=== PATIENT | female | born 1975 | race Caucasian/White ===

== ENCOUNTER → 2018-06-27 11:16 | Outpatient (CLI) | payer BC, SELFPAY ==
[2018-06-27 12:44] LABS: ALB/GLOB Ratio 0.9 RATIO (0.9-2.4); AST(SGOT) 18 U/L (15-37); Alanine Aminotransfer ALT/SGPT 23 U/L (13-56); Albumin, Serum 3.5 g/dL (3.2-5.0); Alkaline Phosphatase 55 U/L (45-117); Anion Gap 11 (5-15); BUN 18 mg/dL (7-18); BUN/Creat Ratio 23.8 RATIO (10-20); Calcium,Total 9.3 mg/dL (8.5-10.1); Chloride 105 mmol/L (98-107); Cholesterol 203 mg/dL (200); Creatinine, Serum 0.76 mg/dL (0.55-1.02); EST Glomerular Filtration Rate 89 mL/min (>60); Est Glom Filt Rate - Afr Amer 108 mL/min (>60); Globulin 3.9 g/dL (2.2-4.2); Glucose 71 mg/dL (74-106); High Density Lipoprotein 70 mg/dL; Protein, Total 7.4 g/dL (6.4-8.2); Sodium Level 141 mmol/L (136-145); Thyroid Stim Hormone (TSH) 1.53 uIU/mL (0.358-3.74); Triglycerides 131 mg/dL; Very Low Density Lipoprotein 26 mg/dL (5-40)
== END ==
PROVIDERS: Family Provider Family Medicine; PCP Family Medicine; Visit Provider Family Medicine
DX: E78.5 Hyperlipidemia, unspecified (principal); F41.9 Anxiety disorder, unspecified
CPT/HCPCS: 36415; 80053; 80061; 83735; 84443

== ENCOUNTER → 2018-10-09 13:16 | Outpatient (CLI) | payer BC, SELFPAY ==
--- NOTE | 2018-10-09 13:22 | RAD_ITS ---
STUDY: X-RAY - RIGHT WRIST REASON FOR EXAM: Chronic pain. TECHNIQUE: 3 view(s) of the wrist were obtained. COMPARISON: None. FINDINGS: Normal visualized distal radius and ulna. Normal radiocarpal articulation. Normal distal radioulnar articulation. Normal carpal bones. Normal carpal articulations. Normal carpometacarpal articulation of the thumb. Normal second through fifth carpometacarpal articulations. Normal visualized metacarpal bones. The soft tissue structures are unremarkable. RAD/Wrist min 3 Views IMPRESSION: Normal x-ray examination of the right wrist. Electronically Signed: Jesu Hummel MD at 15:46 EST Tel , Service support ,
== END ==
PROVIDERS: Family Provider Family Medicine; PCP Family Medicine; Referring Provider Orthopaedic Surgery; Visit Provider Orthopaedic Surgery
DX: M25.531 Pain in right wrist (principal)
CPT/HCPCS: 73110

== ENCOUNTER 2018-11-28 12:30 | Outpatient (RCR) | payer BC, SELFPAY ==
--- NOTE | 2018-10-14 15:35 | HP.OTEVAL_ITS ---
Patient's Visit Information DIPAK DOSS is a 43 year old F, referred to Occupational Therapy by Yumiko Kenny DO, with a diagnosis of ECU Tendonitis and snapping. Date of Evaluation: 10/14/18 Occupational Therapist: Twila Moy - Subjective Subjective: Arrived and noted that she started noticing clicking and snapping in wrist around end of September. Dipak is referral from [facility]. She already has splint as per recommendation by Dr. Kenny. No MRI but x-rays completed in poffice with [facility]. Pt. noted she is R hand dominant and works [employer] and [employer] owned [employer] - Pain Right Wrist 0 Pain Intensity Range: 0, 6 - Objective Concerns: Iontophoresis will likley not be covered by insurance but looking into it to double check. Will determine completion of iontophoresis if Pt. is willing to complete out of pocket pay and it is appropriate with medication allergies. Will focus on icing and US to decrease imflammation during the meantime. - ROM Wrist: Flexion R 0-76, L 0-76; Extension R 0-44, L 0-70 MP: WFL PIP: WFL DIP: WFL ROM Comments: Radial Deviation: R 0-11, L 0-19. Ulnar Deviation: R 0-28, L 0- 22. As expected, increased pain with ulnar deviation. 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 is R hand dominant. - Sensation Thumb: R 3.22, L 2.83 Index: R 3.22 , L 2.83 Middle: R 3.22 , L 2.83 Ring: R 2.83, L 2.83 Little: R 2.83, L 2.83 Sensation Comments: Notes previous had some CTS like symptoms years ago but it has never been issue. She did note that at times and often at night she will exterience numbness and tingling in thumb, IF and MF. 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 Goal:: Dipak to not have more than 1/10 pain during repeitive tasks with good wrist mechanics 100% of the time to help decrease additional pain by d/c. Goal:: Dipak to be (I) to complete good lifiting and wrist mechanics to help decrease poor body mechanics to increased pain and further risk of additional injury 100% of the time by d/c. Goal:: Dipak - Rehabilitation General Assessment: Dipak arrived for OT evaluation 10/14/18. Decreased strength, wrist mechanics, and increase dpain with movements noted of R dominant wrist when compared to L wrist. She will benefit from OT services to promote radial strength program to help decrease ulnar deviation, modalities as needed to manage pain, splint as needed to decrease pain, and general body and wrist mechanics to promote increased alignment and decreased pain during work-related and ADL tasks. Rehabilitation Potential: Good - Anticipated Interventions Anticipated Interventions: A/AAROM/PROM, Strengthening, Edema Control, Scar Care, Modalities, Orthoses, Joint Protection/Energy Conservation, Ergonomic Education, Fine Motor Coord/[place], ADL Training, Caregiver Training, Home Program - Visit Plan Frequency: 2x /Week Duration: 4 Weeks General Plan: OT to completed light PRE strengthening program topromote radial stability to decrease pain over ECU to help decrease symptoms and movements to aggrevate tendonitis, ROM, pain management with US and iontophoresis to help decrease pain, and general wrista nd body mechanics to help decrease pain during work and daily tasks. TEXT: Thank you for the opportunity to evaluate your patient. For Medicare and Medicare HMO plans, please review the plan of care and approve it. It will need to be FAXED BACK to us at [phone] for Medicare purposes. Please let me know if there are questions or concerns regarding this plan of care. Physician Signature: Date:
--- NOTE | 2018-10-17 13:08 | HP.OTEVAL_ITS ---
Patient's Visit Information DIPAK DOSS is a 43 year old F, referred to Occupational Therapy by Yumiko Kenny DO, with a diagnosis of ECU Tendonitis and snapping. Date of Evaluation: 10/14/18 Occupational Therapist: Twila Moy - Subjective Subjective: Arrived and noted that she started noticing clicking and snapping in wrist around end of September. Dipak is referral from [facility]. She already has splint as per recommendation by Dr. eKnny. No MRI but x-rays completed in office with [facility]. Pt. noted she is R hand dominant and works [employer], in [facility] [place]. She explained she is required to lift 20-45 lbs on a regular basis. - Pain Right Wrist 0 Pain Intensity Range: 0, 6 - Objective Concerns: Iontophoresis will not be covered by insurance. Will determine completion of iontophoresis if Pt. is willing to complete out of pocket pay. She has been cleared by pharmacy to use dexamethasone with medication related allergies. Alternative would be to use phonophoresis. This would also require a prescription. Will focus on icing and US to decrease inflammation during the meantime. - ROM Wrist: Flexion R 0-76, L 0-76; Extension R 0-44, L 0-70 MP: WFL PIP: WFL DIP: WFL ROM Comments: Radial Deviation: R 0-11, L 0-19. Ulnar Deviation: R 0-28, L 0- 22. Increased pain with ulnar deviation when tendon compressed. 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 is R hand dominant. - Sensation Thumb: R 3.22, L 2.83 Index: R 3.22 , L 2.83 Middle: R 3.22 , L 2.83 Ring: R 2.83, L 2.83 Little: R 2.83, L 2.83 Sensation Comments: Notes previous had some CTS like symptoms years ago but it has never been issue. She did note that at times and often at night she will experience numbness and tingling in thumb, IF and MF. 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 Goal:: Dipak to not have more than 1/10 pain during repetitive tasks with good wrist mechanics 100% of the time to help decrease additional pain by d/c. Goal:: Dipak to be (I) to complete good lifting and wrist mechanics to help decrease risk of further injury or additional pain 100% of the time by d/c. Goal:: Dipak to return to completing all ADl/IADL with 1/10 pain for repetitive hand and wrist movements 4/5 trials 80% of the time by d/c. Goal:: Dipak to be (I) to complete HEP to promote stability of wrist and pain manage to promote increased (I) and ability to return back to PLOF by d/c. - Rehabilitation General Assessment: Dipak arrived for OT evaluation 10/14/18. Decreased strength, wrist mechanics, and increased pain with movements noted of R dominant wrist when compared to L wrist. She will benefit from OT services to promote radial strength program to help decrease ulnar deviation, modalities as needed to manage pain, splint as needed to decrease pain, and general body and wrist mechanics to promote increased alignment and decreased pain during work-related and ADL tasks. Rehabilitation Potential: Good - Anticipated Interventions Anticipated Interventions: A/AAROM/PROM, Strengthening, Edema Control, Scar Care, Modalities, Orthoses, Joint Protection/Energy Conservation, Ergonomic Education, Fine Motor Coord/Clif[place], ADL Training, Caregiver Training, Home Program - Visit Plan Frequency: 2x /Week Duration: 4 Weeks General Plan: OT to completed light PRE strengthening program to promote radial stability to decrease pain over ECU to minimize movements that aggravate tendonitis. Will additionally complete ROM, pain management with US and icing, and additional modalities to help decrease and manage pain. General wrist and body mechanics and ergonomic training to be completed to help decrease pain during work and daily tasks. TEXT: Thank you for the opportunity to evaluate your patient. For Medicare and Medicare HMO plans, please review the plan of care and approve it. It will need to be FAXED BACK to us at [phone] for Medicare purposes. Please let me know if there are questions or concerns regarding this plan of care. Physician Signature: Date:
--- NOTE | 2019-04-27 17:47 | HP.OT.NRP ---
HP - Discharge Summary - Patient Information DIPAK DOSS was seen in my office for initial evaluation on 10/14/18. The following Plan of Care was established for this patient: Initial Frequency: 2x /Week Initial Duration: 4 Weeks Plan: continue to wear prefab brace. PRE. - Anticipated Interventions Anticipated Interventions: A/AAROM/PROM, Strengthening, Edema Control, Scar Care, Modalities, Orthoses, Joint Protection/Energy Conservation, Ergonomic Education, Fine Motor Coord/Clif[place], ADL Training, Caregiver Training, Home Program This patient was last seen in our office 11/28/18. Pertinent comments regarding their Occupational therapy will appear below: Completed 04/11 appointments. She did not completed further follow up and will be d/c'd at this time. At this point I will be discontinuing this patient from occupational therapy. I would be happy to see this patient again in the future if found appropriate by the physician. Thank you! Twila Moy, OTR/L
== END 2018-11-28 19:00 | disposition home or self-care (01) ==
LOC: OT 12:30
PROVIDERS: Family Provider Family Medicine; PCP Family Medicine; Referring Provider Orthopaedic Surgery; Visit Provider Orthopaedic Surgery
DX: M77.8 Other enthesopathies, not elsewhere classified (principal)
CPT/HCPCS: 97035; 97110; 97166; 97530; 97760

== ENCOUNTER 2018-12-15 14:25 | Outpatient (RCR) | payer BC, SELFPAY | END 2018-12-15 23:59 | LOC: NS 14:25 | PROVIDERS: Family Provider Family Medicine; PCP Family Medicine; Visit Provider Family Medicine | DX: E66.9 Obesity, unspecified (principal); E66.3 Overweight; Z68.30 Body mass index [BMI] 30.0-30.9, adult; F41.9 Anxiety disorder, unspecified; R10.13 Epigastric pain; E78.5 Hyperlipidemia, unspecified; Z71.3 Dietary counseling and surveillance | CPT/HCPCS: 97802 ==

== ENCOUNTER → 2019-01-21 08:36 | Outpatient (CLI) | payer BC, SELFPAY ==
--- NOTE | 2019-01-21 08:41 | RAD_ITS ---
STUDY: AIR-CONTRAST UPPER GI STUDY REASON FOR EXAM: Female, 43 years old. feeling of food getting stuck in upper throat FLUOROSCOPY TIME (if supplied): (0:54) minutes/seconds 44.41 mgy 54 seconds 22 images TECHNIQUE: Barium pill swallow with sips of water is performed at the beginning of the study without difficulty. Multiple barium swallows were performed under fluoroscopic monitoring. Multiple views of the esophagus, the stomach and the duodenum were performed. COMPARISON: None. FINDINGS: The esophagus appears normal in size and shape it shows unremarkable mucosal pattern. There is no evidence of hiatal hernia or abnormal vascular compression. The stomach is normal in size shape and position the gastric mucosal folds are unremarkable. The duodenum and bulb and duodenal loop are unremarkable. The duodenal jejunal junction is in normal anatomic position to the left of the vertebral body of T12. RAD/Esophagus Only IMPRESSION: Unremarkable study. Electronically Signed: Suresh Peters, at 11:03 EDT Tel , Service support ,
== END ==
PROVIDERS: Family Provider Family Medicine; PCP Family Medicine; Referring Provider Family Medicine; Visit Provider Family Medicine
DX: R13.10 Dysphagia, unspecified (principal)
CPT/HCPCS: 74220

== ENCOUNTER → 2020-07-04 09:40 | Outpatient (CLI) | payer OTHER, SELFPAY ==
[2020-07-04 12:06] LABS: Erythrocyte Sedimentation Rate 13 mm/hr (0-20)
[2020-07-04 12:08] LABS: Absolute Lymphocyte Count 2.06 X10^3/uL (0.83-4.51); Absolute Neutrophil Count 4.5 X10^3/uL (2.0-7.7); Basophil# 0.03 X10^3/uL; Basophil% 0.4 % (0-1); Eosinophil# 0.14 X10^3/uL; Hematocrit 39.1 % (37-47); Hemoglobin 12.7 g/dL (12.0-15.0); Lymphocyte # 2.06 X10^3/ul (4.0); Lymphocyte % 28.9 % (19-41); Mean Corp Hgb Conc 32.5 g/dL (32-36); Mean Corpuscular Hgb 27.1 pg (27.0-32.0); Mean Corpuscular Volume 83.4 fL (81-99); Mean Platelet Vol. 10.7 fl (6.2-12.0); Monocyte# 0.36 X10^3/uL; NRBC Flagged by Analyzer 0 % (0-5); Neutrophil # 4.52 X10^3/uL (2.7-7.7); Neutrophil % 63.3 % (47-70); Platelet Count 404 K/mm3 (150-450); RBC Distribution Width SD 39.2 fl (35.1-43.9); Red Blood Count 4.69 M/mm3 (4.2-5.4); White Blood Count 7.1 K/mm3 (4.4-11.0)
[2020-07-04 12:18] LABS: Vitamin B12 370 pg/mL (211-911); Vitamin D,25 Hydroxy 52.1 ng/mL
[2020-07-04 12:27] LABS: ALB/GLOB Ratio 0.9 RATIO (0.9-2.4); AST(SGOT) 22 U/L (15-37); Alanine Aminotransfer ALT/SGPT 31 U/L (13-56); Albumin, Serum 3.5 g/dL (3.2-5.0); Alkaline Phosphatase 66 U/L (45-117); Anion Gap 6 (5-15); BUN 12 mg/dL (7-18); BUN/Creat Ratio 16.1 RATIO (10-20); Calcium,Total 9.1 mg/dL (8.5-10.1); Chloride 106 mmol/L (98-107); Cholesterol 192 mg/dL (200); Creatinine, Serum 0.75 mg/dL (0.55-1.02); EST Glomerular Filtration Rate 90 mL/min (>60); Est Glom Filt Rate - Afr Amer 108 mL/min (>60); Globulin 3.8 g/dL (2.2-4.2); Glucose 83 mg/dL (74-106); High Density Lipoprotein 57 mg/dL; Iron 69 ug/dL (50-170); Potassium 3.8 mmol/L (3.5-5.1); Protein, Total 7.3 g/dL (6.4-8.2); Sodium Level 137 mmol/L (136-145); Thyroid Stim Hormone (TSH) 1.28 uIU/mL (0.358-3.74); Triglycerides 173 mg/dL; Very Low Density Lipoprotein 35 mg/dL (5-40)
[2020-07-05 16:08] LABS: Endomysial Antibody IgA Negative (Negative)
[2020-07-06 04:30] LABS: Deamidated Gliadin IgA 2 units (0-19); Deamidated Gliadin IgG 3 units (0-19); Immunoglobulin A 94 mg/dL (87-352); t-Transglutaminase IgA <2 U/mL (0-3)
[2020-07-07 03:06] LABS: Beef <0.10 kU/L (Class 0); Corn <0.10 kU/L (Class 0); Egg, Whole 0.14 kU/L (Class 0/I); Milk (Cow) 0.21 kU/L (Class 0/I); Peanut <0.10 kU/L (Class 0); Pork <0.10 kU/L (Class 0); Soybean <0.10 kU/L (Class 0); Wheat <0.10 kU/L (Class 0)
[2020-07-07 06:30] LABS: Chocolate <0.10 kU/L (Class 0)
== END ==
PROVIDERS: PCP Family Medicine; Referring Provider Family Medicine; Visit Provider Family Medicine
DX: R19.7 Diarrhea, unspecified (principal); R53.83 Other fatigue; E78.5 Hyperlipidemia, unspecified
CPT/HCPCS: 36415; 80053; 80061; 82306; 82607; 82784; 83516; 83540; 84443; 85025; 85652; 86003; 86005; 86255

== ENCOUNTER → 2020-09-28 11:28 | Outpatient (CLI) | payer OTHER, SELFPAY ==
[2020-09-28 15:37] LABS: T4 Total, Thyroxin 15.3 ug/dL (4.8-13.9); Thyroid Stim Hormone (TSH) 1.34 uIU/mL (0.358-3.74)
[2020-10-03 16:08] LABS: Endomysial Antibody IgA Negative (Negative)
[2020-10-03 20:08] LABS: Immunoglobulin A 100 mg/dL (87-352); t-Transglutaminase IgA <2 U/mL (0-3)
== END ==
PROVIDERS: PCP Family Medicine; Referring Provider Internal Medicine Gastroenterology; Visit Provider Internal Medicine Gastroenterology
DX: R19.7 Diarrhea, unspecified (principal)
CPT/HCPCS: 36415; 82784; 83516; 84436; 84443; 86140; 86255

== ENCOUNTER → 2020-12-14 11:59 | Outpatient (CLI) | payer OTHER, SELFPAY ==
[2020-12-14 15:20] LABS: Absolute Lymphocyte Count 2.75 X10^3/uL (0.83-4.51); Absolute Neutrophil Count 4.7 X10^3/uL (2.0-7.7); Basophil# 0.03 X10^3/uL; Basophil% 0.4 % (0-1); Eosinophil# 0.13 X10^3/uL; Eosinophils% 1.6 % (0-5); Hematocrit 40.7 % (37-47); Hemoglobin 12.8 g/dL (12.0-15.0); Lymphocyte # 2.75 X10^3/ul (4.0); Lymphocyte % 34.1 % (19-41); Mean Corp Hgb Conc 31.4 g/dL (32-36); Mean Corpuscular Volume 82.7 fL (81-99); Mean Platelet Vol. 10.4 fl (6.2-12.0); Monocyte# 0.47 X10^3/uL; Monocyte% 5.8 % (0-10); NRBC Flagged by Analyzer 0 % (0-5); Neutrophil # 4.66 X10^3/uL (2.7-7.7); Neutrophil % 57.7 % (47-70); Platelet Count 409 K/mm3 (150-450); RBC Distribution Width CV 13.2 % (11.6-14.6); Red Blood Count 4.92 M/mm3 (4.2-5.4); White Blood Count 8.1 K/mm3 (4.4-11.0)
[2020-12-14 15:36] LABS: ALB/GLOB Ratio 0.9 RATIO (0.9-2.4); AST(SGOT) 21 U/L (15-37); Alanine Aminotransfer ALT/SGPT 33 U/L (13-56); Albumin, Serum 3.5 g/dL (3.2-5.0); Alkaline Phosphatase 74 U/L (45-117); Anion Gap 7 (5-15); BUN 18 mg/dL (7-18); BUN/Creat Ratio 24.2 RATIO (10-20); Calcium,Total 9.7 mg/dL (8.5-10.1); Chloride 103 mmol/L (98-107); Cholesterol 219 mg/dL (200); Creatinine, Serum 0.74 mg/dL (0.55-1.02); EST Glomerular Filtration Rate 90 mL/min (>60); Est Glom Filt Rate - Afr Amer 108 mL/min (>60); Globulin 3.8 g/dL (2.2-4.2); Glucose 77 mg/dL (74-106); High Density Lipoprotein 63 mg/dL; Potassium 3.6 mmol/L (3.5-5.1); Protein, Total 7.3 g/dL (6.4-8.2); Rheumatoid Factor < 10.0 IU/mL (<15); Sodium Level 137 mmol/L (136-145); Triglycerides 181 mg/dL; Uric Acid 4.9 mg/dL (2.6-6.0); Very Low Density Lipoprotein 36 mg/dL (5-40)
[2020-12-14 15:53] LABS: Internal QC Validated? YES +Cl - CLEAR BKGD; Monotest Negative (Negative)
[2020-12-14 15:55] LABS: Erythrocyte Sedimentation Rate 6 mm/hr (0-30)
[2020-12-16 13:47] LABS: ANTINUCLEAR ANTIBODIES DIRECT Negative (Negative)
== END ==
PROVIDERS: PCP Family Medicine; Referring Provider Family Medicine; Visit Provider Family Medicine
DX: R53.81 Other malaise (principal); R53.83 Other fatigue; R03.0 Elevated blood-pressure reading, without diagnosis of hypertension; M25.50 Pain in unspecified joint
CPT/HCPCS: 36415; 80053; 80061; 84550; 85025; 85652; 86038; 86140; 86308; 86431

== ENCOUNTER → 2021-01-02 | Outpatient (CLI) | payer OTHER, SELFPAY | END | disposition home or self-care (01) | LOC: LABSPEC 13:34 | PROVIDERS: PCP Family Medicine; Referring Provider Family Medicine; Visit Provider Family Medicine | DX: R19.7 Diarrhea, unspecified (principal) | CPT/HCPCS: 82274; 83630; 87177; 87209; 87493; 87506 ==

== ENCOUNTER → 2021-01-16 10:44 | Outpatient (CLI) | payer OTHER, SELFPAY ==
[2021-01-16 12:36] LABS: Absolute Lymphocyte Count 2.41 X10^3/uL (0.83-4.51); Absolute Neutrophil Count 4.4 X10^3/uL (2.0-7.7); Basophil# 0.04 X10^3/uL; Basophil% 0.5 % (0-1); Eosinophil# 0.17 X10^3/uL; Eosinophils% 2.3 % (0-5); Hematocrit 41.4 % (37-47); Hemoglobin 13.1 g/dL (12.0-15.0); Lymphocyte # 2.41 X10^3/ul (4.0); Lymphocyte % 32.3 % (19-41); Mean Corp Hgb Conc 31.6 g/dL (32-36); Mean Corpuscular Hgb 26.4 pg (27.0-32.0); Mean Corpuscular Volume 83.3 fL (81-99); Mean Platelet Vol. 10.3 fl (6.2-12.0); Monocyte# 0.43 X10^3/uL; Monocyte% 5.8 % (0-10); NRBC Flagged by Analyzer 0 % (0-5); Neutrophil # 4.38 X10^3/uL (2.7-7.7); Neutrophil % 58.7 % (47-70); Platelet Count 422 K/mm3 (150-450); RBC Distribution Width CV 13.1 % (11.6-14.6); RBC Distribution Width SD 39.5 fl (35.1-43.9); Red Blood Count 4.97 M/mm3 (4.2-5.4); White Blood Count 7.5 K/mm3 (4.4-11.0)
[2021-01-16 12:51] LABS: ALB/GLOB Ratio 0.9 RATIO (0.9-2.4); AST(SGOT) 21 U/L (15-37); Alanine Aminotransfer ALT/SGPT 32 U/L (13-56); Albumin, Serum 3.6 g/dL (3.2-5.0); Alkaline Phosphatase 68 U/L (45-117); Anion Gap 5 (5-15); BUN 13 mg/dL (7-18); BUN/Creat Ratio 18.3 RATIO (10-20); Calcium,Total 9.7 mg/dL (8.5-10.1); Chloride 104 mmol/L (98-107); Creatinine, Serum 0.71 mg/dL (0.55-1.02); EST Glomerular Filtration Rate 95 mL/min (>60); Est Glom Filt Rate - Afr Amer 115 mL/min (>60); Globulin 3.9 g/dL (2.2-4.2); Glucose 82 mg/dL (74-106); Potassium 3.9 mmol/L (3.5-5.1); Protein, Total 7.5 g/dL (6.4-8.2); Sodium Level 138 mmol/L (136-145)
[2021-01-16 13:35] LABS: Hepatitis B Surface Antibody Non-Reactive; Hepatitis B Surface Antigen Non-Reactive (Nonreactive); Hepatitis C Antibody Non-Reactive (Nonreactive)
[2021-01-18 08:55] LABS: CCP IgG Antibodies 7 units (0-19); Hepatitis B Core AB IgM Negative (Negative)
== END ==
PROVIDERS: PCP Family Medicine; Referring Provider Internal Medicine Rheumatology; Visit Provider Internal Medicine Rheumatology
DX: M06.4 Inflammatory polyarthropathy (principal); M79.7 Fibromyalgia; R51.9 Headache, unspecified; M18.0 Bilateral primary osteoarthritis of first carpometacarpal joints; F32.9 Major depressive disorder, single episode, unspecified; K21.9 Gastro-esophageal reflux disease without esophagitis; E78.5 Hyperlipidemia, unspecified; R19.7 Diarrhea, unspecified
CPT/HCPCS: 36415; 80053; 85025; 86200; 86705; 86706; 86803; 87340

== ENCOUNTER → 2021-02-07 12:30 | Outpatient (CLI) | payer OTHER, SELFPAY ==
--- NOTE | 2021-02-07 12:32 | CT_ITS ---
STUDY: CT BRAIN WITHOUT CONTRAST REASON FOR EXAM: Female, 46 years old. HEADACHE RADIATION DOSAGE (If Supplied By Facility): CTDIvol = ( 44.99 ) mGy, DLP = ( 745.49 ) mGycm TECHNIQUE: Transaxial CT imaging of the brain was performed without administration of intravenous contrast material. Individualized dose optimization techniques were used for this CT. COMPARISON: No relevant priors. FINDINGS: Normal soft tissue structures. Normal calvarium. Normal size ventricles and extra-axial spaces for the patient''s age. Normal white matter tracts of the cerebral hemispheres. Normal basal ganglia and thalami. Normal brainstem. Normal cerebellum. There is no intracranial hemorrhage. There are no findings of an acute ischemic infarction. Normal visualized paranasal sinuses. CT/Brain/Head without Contrast IMPRESSION: Normal unenhanced CT scan of the brain. Electronically Signed: Vlad Norris MD at 13:03 EDT , Service support ,
== END ==
PROVIDERS: PCP Family Medicine; Referring Provider Family Medicine; Visit Provider Family Medicine
DX: R51.9 Headache, unspecified (principal)
CPT/HCPCS: 70450

== ENCOUNTER 2021-07-24 11:52 | Emergency (ER) | payer OTHER, SELFPAY ==
[2021-07-24 11:52] VITALS: BP 116/87; PULSE 92; RESP 22; TEMP 36.2; O2SAT 100; BMI 32.3
--- NOTE | 2021-07-24 13:40 | EKG12_ITS ---
Test Reason : GENERAL ILLNESS Blood Pressure : / mmHG Vent. Rate : 085 BPM Atrial Rate : 085 BPM P-R Int : 152 ms QRS Dur : 110 ms QT Int : 388 ms P-R-T Axes : 043 016 036 degrees QTc Int : 461 ms Normal sinus rhythm Normal ECG Confirmed by JUAN HASSAN, JAMIA ([id number]), editor house organ UZIEL GUALLPA ([id number]) on 07/25/2021 1:46:20 PM Referred By: Confirmed By:JAMIA MARTINEZ MD
--- NOTE | 2021-07-24 13:40 | RAD_ITS ---
STUDY: X-RAY CHEST REASON FOR EXAM: Female, 46 years old. Cough, weakness and shortness of breath. TECHNIQUE: Single AP portable view of the chest. COMPARISON: Comparison is made with prior examination dated 11/26/2016. FINDINGS: EKG electrodes are seen. Small alveolar patchy infiltrates are seen in both lungs. Follow-up is recommended. There is no demonstrated pleural abnormality. Normal size heart. Normal mediastinum and latisha. Normal visualized pulmonary arteries. Normal visualized aortic arch and descending thoracic aorta. Normal visualized thoracic spine. Normal visualized ribs, clavicles, and shoulders. There is no demonstrated abnormality of the visualized soft tissue structures of the upper abdomen. RAD/Chest 1 View (Portable) IMPRESSION: Small patchy alveolar infiltrates seen in both lungs. Radiographic follow-up is recommended. Covid pneumonitis should be ruled out. Electronically Signed: Carlos Lehman MD at 14:49 EDT , Service support ,
--- NOTE | 2021-07-24 13:41 | EX.ED.DYSGE1 ---
HPI History of Present Illness Chief Complaint: General Illness Informant: patient Narrative Narrative: 46-year-old female presenting with 6 days of Covid symptoms. She states her was hospitalized overnight with Covid. She notes shortness of breath cough diarrhea decreased appetite loss of taste and smell headaches. She notes some chest discomfort particular with breathing. Patient did not receive a Covid vaccination [facility] Medical History (Updated 07/24/21 @ 16:[address] Angel Lee DO) GERD (gastroesophageal reflux disease) Medical History no medical history Home Medications azelaic acid [Finacea] 50 g TP DAILY 11/26/13 [History Last Taken Unknown] Finofibrate 137 mg PO DAILY 10/24/16 [History Last Taken Unknown] Norgestimate-Ethinyl Estradiol [Sprintec 28 Day Tablet] 1 ea PO DAILY 10/24/16 [History Last Taken Unknown] spironolactone [Aldactone] 100 mg PO DAILY 10/24/16 [History Last Taken Unknown] clorazepate dipotassium 0.5 tab PO TID #30 tablet 11/26/16 [Rx Last Taken Unknown] omeprazole mg PO 11/26/16 [History Last Taken Unknown] albuterol sulfate [Ventolin HFA] 2 puff INHALATION Q4H PRN PRN #1 inhaler 07/24/21 [Rx Last Taken Unknown] apixaban [Eliquis] 5 mg PO BID #74 tab 07/24/21 [Rx Last Taken Unknown] dexamethasone 6 mg PO DAILY #5 tab 07/24/21 [Rx Last Taken Unknown] Allergy/AdvReac Type Severity Reaction Status Date / Time acetaminophen [From Percocet] Allergy Swelling Verified 07/24/21 12:49 aspirin Allergy Hives Verified 07/24/21 12:49 Latex, Natural Rubber Allergy Rash Verified 07/24/21 12:49 meperidine HCl [From Demerol] Allergy Hives Verified 07/24/21 12:49 oxycodone HCl [From Percocet] Allergy Swelling Verified 07/24/21 12:49 Social History (Updated 07/24/21 @ 13:[address] Angel Lee DO) Smoking Status: Never smoker substance use type: does not use ROS ROS ED Constitutional Constitutional ED: Reports chills, fever(s) and sweats; Denies weight loss Eyes Eyes: Denies change in vision or diplopia ENT ENT ED: Reports rhinorrhea and sore throat; Denies ear pain Cardiovascular Cardiovascular: Denies chest pain, orthopnea, palpitations or racing heartbeat Respiratory/Chest Respiratory/Chest: Reports cough, dyspnea and dyspnea on exertion; Denies orthopnea Gastrointestinal Gastrointestinal: Reports diarrhea and nausea; Denies abdominal pain or vomiting Genitourinary Genitourinary ED: Denies dysuria, hematuria or urinary frequency Musculoskeletal Musculoskeletal: Reports myalgias; Denies arthralgias Integumentary Denies abscess or rash Neurologic Neurologic: Reports headache(s); Denies weakness Psychiatric Psychiatric: Denies anxiety, depression, suicidal ideation or suicidal thoughts Endocrine Endocrinology: Denies polydipsia, polyphagia or polyuria Allergic/Immunologic Allergic/Immunologic ED: Denies mouth swelling, tongue swelling or urticaria EXAM Physical Exam Const Vital Signs: 07/24/21 11:52 07/24/21 12:50 Temperature 97.2 F L Temperature Source Temporal Pulse Rate 92 Respiratory Rate 22 H Respiratory Effort Normal Respiratory Pattern Normal Blood Pressure 116/87 H Blood Pressure Mean 96 Pulse Ox 100 Oxygen Delivery Method Room Air Positive well nourished and well developed General Appearance ED: well developed HEENT Reports normocephalic, head/scalp atraumatic and moist mucous membranes Eyes PERRL and EOMs intact bilaterally Neck no lymphadenopathy, supple and no JVD Resp normal respiratory effort and clear to auscultation bilaterally Cardio regular rate, regular rhythm and no murmurs GI normal to inspection, nondistended, normoactive bowel sounds and non-tender Palpation: soft Back/Spine no CVA tenderness and normal ROM Extremity normal to inspection General Extremety ED: Negative for edema General Extremity: Negative for edema Neuro oriented x3 and CN's II-XII intact bilaterally Sensorium / Orientation: alert Motor Exam: strength 5/5 throughout Psych mental status grossly normal Mood & Affect: Negative for depressed or tearful Skin no rashes or lesions noted and no wounds MDM MDM MDM Narrative Medical decision making narrative: Patient received a fluid bolus and Zofran. My interpretation of the chest x-ray is patchy infiltrates consistent with COVID-19 infection. Her D-dimer was slightly elevated 0.51. Because of this a CTA was ordered which demonstrates the patchy areas of pneumonitis as well as a right upper lobe pulmonary artery embolism. Patient is not hypoxic or requiring supplemental oxygen. She is not hypoxic with ambulation. Believe the patient can be discharged home. We will start her on Decadron as well as Eliquis. Lab Data Attestation: I reviewed the patient's lab results. Labs: Laboratory Results - last 24 hr 07/24/21 07/24/21 07/24/21 13:05 13:05 14:28 WBC 3.8 L RBC 4.78 Hgb 13.0 Hct 39.2 MCV 82.0 MCH 27.2 MCHC 33.2 RDW Std Deviation 39.6 RDW Coeff of Karely 13.2 Plt Count 253 MPV 10.1 Immature Gran % (Auto) 0.500 Neut % (Auto) 64.4 Lymph % (Auto) 26.3 Ballard % (Auto) 8.2 Eos % (Auto) 0.3 Baso % (Auto) 0.3 Absolute Neuts (auto) 2.4 Absolute Lymphs (auto) 0.99 Nucleated RBC % 0 D-Dimer Quant (PE/DVT) 0.51 H* Sodium 137 Potassium 3.4 L Chloride 103 Carbon Dioxide 27.0 Anion Gap 7 BUN 12 Creatinine 0.65 Estim Creat Clear Calc 102.32 Est GFR (MDRD) Af Amer 127 Est GFR (MDRD) Non-Af 105 BUN/Creatinine Ratio 18.6 Glucose 98 Calcium 9.1 Total Bilirubin 0.40 AST 53 H ALT 60 H Alkaline Phosphatase 99 Troponin I High Sens 84 H Total Protein 7.3 Albumin 3.1 L Globulin 4.2 Albumin/Globulin Ratio 0.7 L Radiography Diagnostic Testing: Radiology Impression Chest X-Ray 07/24/21 13:40 IMPRESSION: Small patchy alveolar infiltrates seen in both lungs. Radiographic follow-up is recommended. Covid pneumonitis should be ruled out. Electronically Signed: Carlos Lehman MD at 14:49 EDT , Service support , Chest CTA 07/24/21 14:51 IMPRESSION: Small linear intraluminal filling defect in the branch of the right upper lobe pulmonary artery. Multiple bilateral areas of alveolar infiltrate seen in both lungs. Pneumonitis secondary to Covid should be ruled. Electronically Signed: Carlos Lehman MD at 15:40 EDT , Service support , EKG Initial EKG: Attestation: I personally reviewed and interpreted this EKG as follows: Comments: Normal sinus rhythm with a ventricular rate of 85 bpm. Discharge Plan Triage Chief Complaint: General Illness ED Provider: Angel Lee Dx/Rx/DC Orders Clinical Impression: Pneumonia due to COVID-19 virus Instructions: Coronavirus Disease 2019 (COVID-19): Caring for Yourself or Others Prescriptions: New dexamethasone 6 MG tablet 6 mg PO DAILY Qty: 5 RF: 0 albuterol sulfate [Ventolin HFA] 1 INHALER inhaler 2 puff inhalation Q4H PRN PRN (Reason: Wheezing) Qty: 1 RF: 0 Eliquis 5 MG tablet 5 mg PO BID Qty: 74 RF: 0 No Action azelaic acid [Finacea] 50 GM gel 50 g TP DAILY RF: 0 spironolactone [Aldactone] 100 MG tablet 100 mg PO DAILY RF: 0 Finofibrate 137 mg PO DAILY RF: 0 Norgestimate-Ethinyl Estradiol [Sprintec 28 Day Tablet] 1 EACH tablet 1 ea PO DAILY RF: 0 clorazepate dipotassium 7.5 MG tablet 0.5 tab PO TID Qty: 30 RF: 0 omeprazole 10 MG capsule PO RF: 0 Primary Care Provider: Juan Manuel Leyva Referrals: Juan Manuel Leyva MD [Primary Care Provider] - 1-2 Weeks Disposition Disposition: Home, Self Care
[2021-07-24] MEDS: Ondansetron 4 MG/2 ML Vial IV (13:57)
[2021-07-24 14:20] LABS: Absolute Lymphocyte Count 0.99 X10^3/uL (0.83-4.51); Absolute Neutrophil Count 2.4 X10^3/uL (2.0-7.7); Basophil# 0.01 X10^3/uL; Basophil% 0.3 % (0-1); Eosinophil# 0.01 X10^3/uL; Eosinophils% 0.3 % (0-5); Hematocrit 39.2 % (37-47); Lymphocyte # 0.99 X10^3/ul (0.83-4.51); Lymphocyte % 26.3 % (19-41); Mean Corp Hgb Conc 33.2 g/dL (32-36); Mean Corpuscular Hgb 27.2 pg (27.0-32.0); Mean Platelet Vol. 10.1 fl (6.2-12.0); Monocyte# 0.31 X10^3/uL; Monocyte% 8.2 % (0-10); NRBC Flagged by Analyzer 0 % (0-5); Neutrophil # 2.43 X10^3/uL (2.7-7.7); Neutrophil % 64.4 % (47-70); Platelet Count 253 K/mm3 (150-450); RBC Distribution Width CV 13.2 % (11.6-14.6); RBC Distribution Width SD 39.6 fl (35.1-43.9); Red Blood Count 4.78 M/mm3 (4.2-5.4); White Blood Count 3.8 K/mm3 (4.4-11.0)
[2021-07-24 14:31] LABS: ALB/GLOB Ratio 0.7 RATIO (0.9-2.4); AST(SGOT) 53 U/L (15-37); Alanine Aminotransfer ALT/SGPT 60 U/L (13-56); Albumin, Serum 3.1 g/dL (3.2-5.0); Alkaline Phosphatase 99 U/L (45-117); Anion Gap 7 (5-15); BUN 12 mg/dL (7-18); BUN/Creat Ratio 18.6 RATIO (10-20); Calcium,Total 9.1 mg/dL (8.5-10.1); Chloride 103 mmol/L (98-107); Creatinine, Serum 0.65 mg/dL (0.55-1.02); EST Glomerular Filtration Rate 105 mL/min (>60); Est Glom Filt Rate - Afr Amer 127 mL/min (>60); Estimated Creatinine Clearance 102.32 ml/min; Globulin 4.2 g/dL (2.2-4.2); Glucose 98 mg/dL (74-106); Potassium 3.4 mmol/L (3.5-5.1); Protein, Total 7.3 g/dL (6.4-8.2); Sodium Level 137 mmol/L (136-145); Troponin-I HS 84 pg/mL (3.0-54.0)
[2021-07-24 14:50] LABS: D-Dimer Quantitative (DVT/PE) 0.51 FEU/ug/m (0.27-0.49)
--- NOTE | 2021-07-24 14:51 | CT_ITS ---
STUDY: CTA CHEST REASON FOR EXAM: Female, 46 years old. Pulmonary embolism RADIATION DOSAGE (If Supplied By Facility): CTDIvol = ( 12.76 ) mGy, DLP = ( 364.25 ) mGycm TECHNIQUE: The examination was performed with the intravenous administration of IV 100mL Isovue-370. Post-processing of the angiographic images was performed, with multiplanar reformation and 3D reconstruction. Individualized dose optimization techniques were used for this CT. COMPARISON: Comparison is made with prior chest radiograph dated 07/24/2021. FINDINGS: There is a small linear nonocclusive intraluminal filling defect in the proximal right upper lobe pulmonary arterial branch. Normal thoracic aorta and visualized great vessels. There is no demonstrated aortic dissection. Normal heart and pericardium. Normal mediastinum. Normal hilar regions. Normal visualized trachea and bronchi. The lungs are well expanded. Multiple focal areas of the alveolar densities are seen in both lungs. Pneumonitis secondary to Covid should be ruled. Normal pleura. Normal chest wall structures. Normal osseous structures. There is diffuse fatty infiltration of the liver. Small hiatal hernia. CT/CTA Chest W/WO Contrast IMPRESSION: Small linear intraluminal filling defect in the branch of the right upper lobe pulmonary artery. Multiple bilateral areas of alveolar infiltrate seen in both lungs. Pneumonitis secondary to Covid should be ruled. Electronically Signed: Carlos Lehman MD at 15:40 EDT , Service support ,
[2021-07-24 16:07] VITALS: BP 134/89; PULSE 95; RESP 16; O2SAT 97
[2021-07-24 16:08] VITALS: O2SAT 97
== END 2021-07-24 17:28 | disposition home or self-care (01) ==
PROVIDERS: Emergency Provider Emergency Medicine; PCP Family Medicine
DX: U07.1 COVID-19 (principal); J12.82 Pneumonia due to coronavirus disease 2019; K21.9 Gastro-esophageal reflux disease without esophagitis; Z79.899 Other long term (current) drug therapy
CPT/HCPCS: 71045; 71275; 80053; 84484; 85025; 85379; 87426; 93005; 96361; 96374; 99283; J7030; Q9967; A4216; J2405

== ENCOUNTER → 2021-08-07 08:59 | Outpatient (CLI) | payer OTHER, SELFPAY ==
--- NOTE | 2021-08-07 09:10 | RAD_ITS ---
STUDY: X-RAY CHEST REASON FOR EXAM: Female, 46 years old. Covid TECHNIQUE: PA and lateral views of the chest. COMPARISON: 07/24/2021 FINDINGS: There are mild infiltrates in the lower lobes. There is no focal pulmonary consolidation. There is no demonstrated pleural abnormality. Normal size heart. Normal mediastinum and latisha. Normal visualized pulmonary arteries. Normal visualized aortic arch and descending thoracic aorta. Normal visualized thoracic spine. Normal visualized ribs, clavicles, and shoulders. There is no demonstrated abnormality of the visualized soft tissue structures of the upper abdomen. RAD/Chest PA and Lateral IMPRESSION: There are mild infiltrates in the lower lobes in keeping with Covid pneumonia in the proper clinical setting. Electronically Signed: Abby Asher MD at 16:31 EDT Tel , Service support ,
[2021-08-07 10:00] LABS: Absolute Lymphocyte Count 2.08 X10^3/uL (0.83-4.51); Absolute Neutrophil Count 4.6 X10^3/uL (2.0-7.7); Basophil# 0.03 X10^3/uL; Basophil% 0.4 % (0-1); Eosinophil# 0.27 X10^3/uL; Eosinophils% 3.5 % (0-5); Hematocrit 38.9 % (37-47); Hemoglobin 12.3 g/dL (12.0-15.0); Lymphocyte # 2.08 X10^3/ul (0.83-4.51); Lymphocyte % 27.2 % (19-41); Mean Corp Hgb Conc 31.6 g/dL (32-36); Mean Corpuscular Hgb 26.9 pg (27.0-32.0); Mean Corpuscular Volume 84.9 fL (81-99); Mean Platelet Vol. 9.7 fl (6.2-12.0); Monocyte# 0.63 X10^3/uL; Monocyte% 8.2 % (0-10); NRBC Flagged by Analyzer 0 % (0-5); Neutrophil # 4.58 X10^3/uL (2.7-7.7); Neutrophil % 59.9 % (47-70); Platelet Count 444 K/mm3 (150-450); RBC Distribution Width CV 13.3 % (11.6-14.6); Red Blood Count 4.58 M/mm3 (4.2-5.4); White Blood Count 7.7 K/mm3 (4.4-11.0)
[2021-08-07 10:46] LABS: ALB/GLOB Ratio 0.8 RATIO (0.9-2.4); AST(SGOT) 45 U/L (15-37); Alanine Aminotransfer ALT/SGPT 102 U/L (13-56); Albumin, Serum 3.1 g/dL (3.2-5.0); Alkaline Phosphatase 68 U/L (45-117); Anion Gap 9 (5-15); BUN 8 mg/dL (7-18); BUN/Creat Ratio 12.3 RATIO (10-20); Chloride 103 mmol/L (98-107); Creatinine, Serum 0.65 mg/dL (0.55-1.02); EST Glomerular Filtration Rate 105 mL/min (>60); Est Glom Filt Rate - Afr Amer 127 mL/min (>60); Globulin 4.1 g/dL (2.2-4.2); Glucose 93 mg/dL (74-106); Potassium 3.8 mmol/L (3.5-5.1); Protein, Total 7.2 g/dL (6.4-8.2); Sodium Level 140 mmol/L (136-145); Thyroid Stim Hormone (TSH) 0.85 uIU/mL (0.358-3.74)
== END ==
PROVIDERS: PCP Family Medicine; Referring Provider Family Medicine; Visit Provider Family Medicine
DX: U07.1 COVID-19 (principal); M79.89 Other specified soft tissue disorders
CPT/HCPCS: 36415; 71046; 80053; 84443; 85025

== ENCOUNTER 2021-08-11 01:41 | Emergency (ER) | payer OTHER, SELFPAY ==
[2021-08-11 01:41] VITALS: BP 137/72; PULSE 80; RESP 18; TEMP 36.2; O2SAT 98; BMI 33.3
[2021-08-11 01:44] VITALS: BP 137/72; PULSE 80; RESP 18; TEMP 36.2; O2SAT 98
--- NOTE | 2021-08-11 01:54 | CT_ITS ---
STUDY: CTA CHEST REASON FOR EXAM: Female, 46 years old. Chest pain. Recent pulmonary embolism RADIATION DOSAGE (If Supplied By Facility): CTDIvol = ( 12.57 ) mGy, DLP = ( 475.37 ) mGycm TECHNIQUE: The examination was performed with the intravenous administration of IV 100mL Isovue-370. Post-processing of the angiographic images was performed, with multiplanar reformation and 3D reconstruction. Individualized dose optimization techniques were used for this CT. COMPARISON: 07/24/2021 FINDINGS: Evaluation of the pulmonary arterial vasculature is somewhat limited due to timing of the contrast bolus. There is no definitive central or lobar pulmonary embolus. The segmental and subsegmental branches are not well opacified. Thoracic aorta demonstrates no aneurysmal dilatation or dissection. Normal heart and pericardium. Shotty mediastinal and hilar lymph nodes. Normal visualized trachea and bronchi. The lungs are well expanded. Patchy nodular groundglass infiltrates throughout both lungs, improved in aeration compared to prior imaging. No pleural effusion or pneumothorax. Normal chest wall structures. Normal osseous structures. Visualized portions of the upper abdomen demonstrate diffuse homogeneous hypoattenuation of the liver parenchyma. CT/CTA Chest W/WO Contrast IMPRESSION: 1. No definitive acute central pulmonary embolism with visualization of the segmental and subsegmental pulmonary arterial branches being limited due to timing of the contrast bolus. 2. Patchy nodular groundglass infiltrates throughout both lungs in a predominantly peripheral distribution, consistent with Covid pattern pneumonia which has improved from prior imaging 3. Fatty infiltration of the liver. Electronically Signed: Kevin Jones MD at 3:15 EDT Tel , Service support ,
--- NOTE | 2021-08-11 01:54 | EKG12_ITS ---
Test Reason : CHEST PAIN Blood Pressure : / mmHG Vent. Rate : 078 BPM Atrial Rate : 078 BPM P-R Int : 154 ms QRS Dur : 100 ms QT Int : 394 ms P-R-T Axes : 036 018 031 degrees QTc Int : 449 ms Normal sinus rhythm Normal ECG Confirmed by RAJ HASSAN, BC ([id number]), scientific publications editor MARTIN CANTU ([id number]) on 08/14/2021 9:20:08 A M Referred By: JOSÉ Confirmed By:JEREMY ANTHONY MD
[2021-08-11 02:01] LABS: Absolute Lymphocyte Count 2.57 X10^3/uL (0.83-4.51); Absolute Neutrophil Count 11.2 X10^3/uL (2.0-7.7); Basophil# 0.04 X10^3/uL; Basophil% 0.3 % (0-1); Eosinophil# 0.02 X10^3/uL; Eosinophils% 0.1 % (0-5); Hematocrit 38.6 % (37-47); Hemoglobin 12.6 g/dL (12.0-15.0); Lymphocyte # 2.57 X10^3/ul (0.83-4.51); Lymphocyte % 17.2 % (19-41); Mean Corp Hgb Conc 32.6 g/dL (32-36); Mean Corpuscular Hgb 27.2 pg (27.0-32.0); Mean Corpuscular Volume 83.2 fL (81-99); Mean Platelet Vol. 9.5 fl (6.2-12.0); Monocyte# 0.96 X10^3/uL; Monocyte% 6.4 % (0-10); NRBC Flagged by Analyzer 0 % (0-5); Neutrophil # 11.23 X10^3/uL (2.7-7.7); Neutrophil % 75.3 % (47-70); Platelet Count 399 K/mm3 (150-450); RBC Distribution Width CV 13.7 % (11.6-14.6); RBC Distribution Width SD 40.4 fl (35.1-43.9); Red Blood Count 4.64 M/mm3 (4.2-5.4); White Blood Count 14.9 K/mm3 (4.4-11.0)
[2021-08-11] MEDS: Ondansetron 4 MG/2 ML Vial IV (02:09)
[2021-08-11] MEDS: Morphine 4 MG/ML Syringe IV (02:09)
--- NOTE | 2021-08-11 02:09 | EDS_ITS ---
HPI History of Present Illness Chief Complaint: Chest Pain Informant: patient Onset/Context/Timing Onset: Yesterday Context: Gradual Onset Timing: Waxes and wanes Quality: Sharp Location: Across the chest Current Severity: Moderate Maximum Severity: Severe Narrative Narrative: Patient presents via EMS secondary to chest pain and increased shortness of breath. She was diagnosed with Covid, Covid pneumonia, and PE on July 24. She had initially developed symptoms on July 18. Patient is currently on Eliquis. She reports waking early yesterday morning with sharp chest pain. Throughout the day it would wax and wane but never completely resolved. Earlier this morning she called EMS. She does report continued cough. No significant fever or chills. [facility] Medical History GERD (gastroesophageal reflux disease) Pulmonary embolism Home Medications azelaic acid [Finacea] 50 g TP DAILY 11/26/13 [History Last Taken Unknown] Finofibrate 137 mg PO DAILY 10/24/16 [History Last Taken Unknown] spironolactone [Aldactone] 100 mg PO DAILY 10/24/16 [History Last Taken Unknown] omeprazole 10 mg PO DAILY 11/26/16 [History Last Taken Unknown] albuterol sulfate [Ventolin HFA] 2 puff INHALATION Q4H PRN PRN #1 inhaler 07/24/21 [Rx Last Taken Unknown] apixaban [Eliquis] 5 mg PO BID #74 tab 07/24/21 [Rx Last Taken Unknown] alosetron 0.5 mg PO DAILY 08/11/21 [History Last Taken Unknown] benzonatate 100 mg PO TID PRN PRN 08/11/21 [History Last Taken Unknown] escitalopram oxalate 10 mg PO DAILY 08/11/21 [History Last Taken Unknown] folic acid 2 mg PO DAILY 08/11/21 [History Last Taken Unknown] hydrocodone-acetaminophen 1 tab PO Q6H PRN 3 Days #10 tab 08/11/21 [Rx Last Take n Unknown] hydroxyzine HCl 50 mg PO QHS PRN PRN 08/11/21 [History Last Taken Unknown] lorazepam [Ativan] 0.5 mg PO BID PRN #10 tab 08/11/21 [Rx Last Taken Unknown] methotrexate sodium 12.5 mg PO QWEEK 08/11/21 [History Last Taken Unknown] Allergy/AdvReac Type Severity Reaction Status Date / Time acetaminophen [From Percocet] Allergy Swelling Verified 08/11/21 01:45 aspirin Allergy Hives Verified 08/11/21 01:45 Latex, Natural Rubber Allergy Rash Verified 08/11/21 01:45 meperidine HCl [From Demerol] Allergy Hives Verified 08/11/21 01:45 oxycodone HCl [From Percocet] Allergy Swelling Verified 08/11/21 01:45 Social History Smoking Status: Never smoker substance use type: does not use ROS ROS ED Constitutional Constitutional ED: Denies chills or fever(s) Eyes Eyes: Denies change in vision ENT ENT ED: Denies rhinorrhea or sore throat Cardiovascular Cardiovascular: Reports chest pain Respiratory/Chest Respiratory/Chest: Reports cough and dyspnea Gastrointestinal Gastrointestinal: Denies abdominal pain, diarrhea, nausea or vomiting Genitourinary Genitourinary ED: Denies dysuria Musculoskeletal Musculoskeletal: Reports back pain; Denies neck pain Integumentary Denies rash Neurologic Neurologic: Denies headache(s) or weakness Endocrine Endocrinology: Denies polydipsia or polyuria Allergic/Immunologic Allergic/Immunologic ED: Denies urticaria EXAM Physical Exam Const Vital Signs: 08/11/21 01:41 08/11/21 01:44 08/11/21 01:51 Temperature 97.1 F L 97.1 F L Temperature Source Temporal Temporal Pulse Rate 80 80 Respiratory Rate 18 18 Respiratory Effort Normal Blood Pressure 137/72 H 137/72 H Blood Pressure Mean 93 93 Pulse Ox 98 98 08/11/21 03:00 08/11/21 04:06 Temperature 97.2 F L Temperature Source Temporal Pulse Rate 72 68 Respiratory Rate 12 17 Respiratory Effort Blood Pressure 121/70 H 114/77 Blood Pressure Mean 87 89 Pulse Ox 98 96 Positive well nourished and well developed General Appearance ED: well developed HEENT Reports moist mucous membranes Eyes PERRL and EOMs intact bilaterally Neck no lymphadenopathy and supple Chest Wall inspection of chest normal and palpation of chest normal Resp normal respiratory effort and clear to auscultation bilaterally Cardio regular rate and regular rhythm GI normal to inspection, nondistended, normoactive bowel sounds and non-tender Palpation: soft Extremity normal to inspection Neuro oriented x3 Sensorium / Orientation: alert Psych Mood & Affect: anxious Skin no rashes or lesions noted MDM MDM MDM Narrative Medical decision making narrative: Patient has an allergy to aspirin and this was held. She was given a dose of morphine and Zofran for pain. EKG, CTA chest, labs obtained. Lab Data Attestation: I reviewed the patient's lab results. Labs: Laboratory Results - last 24 hr 08/11/21 08/11/21 08/11/21 01:48 01:48 01:48 WBC 14.9 H RBC 4.64 Hgb 12.6 Hct 38.6 MCV 83.2 MCH 27.2 MCHC 32.6 RDW Std Deviation 40.4 RDW Coeff of Karely 13.7 Plt Count 399 MPV 9.5 Immature Gran % (Auto) 0.700 Neut % (Auto) 75.3 H Lymph % (Auto) 17.2 L [place] % (Auto) 6.4 Eos % (Auto) 0.1 Baso % (Auto) 0.3 Absolute Neuts (auto) 11.2 H Absolute Lymphs (auto) 2.57 Nucleated RBC % 0 Sodium 137 Potassium 3.7 Chloride 101 Carbon Dioxide 27.0 Anion Gap 9 BUN 17 Creatinine 0.76 Estim Creat Clear Calc 87.51 Est GFR (MDRD) Af Amer 106 Est GFR (MDRD) Non-Af 87 BUN/Creatinine Ratio 22.4 H Glucose 146 H Calcium 9.8 Total Bilirubin 0.20 Direct Bilirubin 0.11 AST 45 H ALT 121 H Alkaline Phosphatase 70 Troponin I High Sens 22 Total Protein 7.4 Albumin 3.3 Globulin 4.1 Lipase 08/11/21 08/11/21 01:48 04:12 WBC RBC Hgb Hct MCV MCH MCHC RDW Std Deviation RDW Coeff of Karely Plt Count MPV Immature Gran % (Auto) Neut % (Auto) Lymph % (Auto) [place] % (Auto) Eos % (Auto) Baso % (Auto) Absolute Neuts (auto) Absolute Lymphs (auto) Nucleated RBC % Sodium Potassium Chloride Carbon Dioxide Anion Gap BUN Creatinine Estim Creat Clear Calc Est GFR (MDRD) Af Amer Est GFR (MDRD) Non-Af BUN/Creatinine Ratio Glucose Calcium Total Bilirubin Direct Bilirubin AST ALT Alkaline Phosphatase Troponin I High Sens 23 Total Protein Albumin Globulin Lipase 233 Radiography Diagnostic Testing: Clinical Impression(s) from Imaging Studies Chest CTA 08/11/21 01:54 IMPRESSION: 1. No definitive acute central pulmonary embolism with visualization of the segmental and subsegmental pulmonary arterial branches being limited due to timing of the contrast bolus. 2. Patchy nodular groundglass infiltrates throughout both lungs in a predominantly peripheral distribution, consistent with Covid pattern pneumonia which has improved from prior imaging 3. Fatty infiltration of the liver. Electronically Signed: Kevin Jones MD at 3:15 EDT Tel , Service support , EKG Initial EKG: Attestation: I personally reviewed and interpreted this EKG as follows: Interpretation: Sinus Rhythm (Sinus at 78 with no acute ischemia.) Treatment and Re-Evaluation Comments:: On return from CT patient was given 0.5 mg Dilaudid for pain. Lab work is reviewed. White count is elevated at 14.9. Chemistry studies unremarkable. LFTs and lipase normal. Troponin normal at 22. CTA reveals no central PE with suboptimal visualization of the peripheral branches. Fatigue Covid infiltrates are improved when compared to prior study. Test results discussed with the patient. Pain is significantly improved after the dose of Dilaudid. We discussed pros and cons of admission to hospital versus pain management with close follow-up. We did agree on repeat troponin w hich returns unchanged. Patient is comfortable going home at this time with close follow-up. She was encouraged to return for worsened pain or any concerns. Patient does report increased anxiety secondary to recent Covid and PE diagnosis. She did ask about something low-dose to help with her anxiety. She be written for 10 tabs of Ativan 0.5 mg. Discharge Plan Triage Chief Complaint: Chest Pain ED Provider: Vida Cazares Dx/Rx/DC Orders Clinical Impression: Chest pain Instructions: ED Chest Pain, Uncertain Cause Prescriptions: New hydrocodone-acetaminophen 5-325 mg tablet 1 tab PO Q6H PRN (Reason: pain) 3 Days Qty: 10 RF: 0 lorazepam [Ativan] 0.5 mg tablet 0.5 mg PO BID PRN (Reason: anxiety) Qty: 10 RF: 0 No Action azelaic acid [Finacea] 50 GM gel 50 g TP DAILY RF: 0 spironolactone [Aldactone] 100 MG tablet 100 mg PO DAILY RF: 0 Finofibrate 137 mg PO DAILY RF: 0 omeprazole 10 MG capsule 10 mg PO DAILY RF: 0 albuterol sulfate [Ventolin HFA] 1 INHALER inhaler 2 puff inhalation Q4H PRN PRN (Reason: Wheezing) Qty: 1 RF: 0 Eliquis 5 MG tablet 5 mg PO BID Qty: 74 RF: 0 escitalopram oxalate 10 mg tablet 10 mg PO DAILY RF: 0 methotrexate sodium 2.5 mg tablet 12.5 mg PO QWEEK RF: 0 benzonatate 100 mg capsule 100 mg PO TID PRN PRN (Reason: Cough) RF: 0 folic acid 1 mg tablet 2 mg PO DAILY RF: 0 hydroxyzine HCl 25 mg tablet 50 mg PO QHS PRN PRN (Reason: Sleep) RF: 0 alosetron 0.5 mg tablet 0.5 mg PO DAILY RF: 0 Primary Care Provider: Juan Manuel Leyva Referrals: Juan Manuel Leyva MD [Primary Care Provider] - 3-5 Days if not improving Activity Restrictions/Additional Instructions: As discussed, please return for recurrent pain or any concerns. Disposition Disposition: Home, Self Care
[2021-08-11 02:21] LABS: Anion Gap 9 (5-15); BUN 17 mg/dL (7-18); BUN/Creat Ratio 22.4 RATIO (10-20); Calcium,Total 9.8 mg/dL (8.5-10.1); Chloride 101 mmol/L (98-107); Creatinine, Serum 0.76 mg/dL (0.55-1.02); EST Glomerular Filtration Rate 87 mL/min (>60); Est Glom Filt Rate - Afr Amer 106 mL/min (>60); Estimated Creatinine Clearance 87.51 ml/min; Glucose 146 mg/dL (74-106); Potassium 3.7 mmol/L (3.5-5.1); Sodium Level 137 mmol/L (136-145); Troponin-I HS 22 pg/mL (3.0-54.0)
[2021-08-11] MEDS: HYDROmorphone 0.5 MG/0.5 ML SYRINGE IV (02:59)
[2021-08-11 03:00] VITALS: BP 121/70; PULSE 72; RESP 12; TEMP 36.2; O2SAT 98
[2021-08-11 03:25] LABS: AST(SGOT) 45 U/L (15-37); Alanine Aminotransfer ALT/SGPT 121 U/L (13-56); Albumin, Serum 3.3 g/dL (3.2-5.0); Alkaline Phosphatase 70 U/L (45-117); Bilirubin, Direct 0.11 mg/dL (0.00-0.30); Globulin 4.1 g/dL (2.2-4.2); Protein, Total 7.4 g/dL (6.4-8.2)
[2021-08-11 03:43] LABS: Lipase 233 U/L (73-393)
[2021-08-11 04:06] VITALS: BP 114/77; PULSE 68; RESP 17; O2SAT 96
[2021-08-11 04:49] LABS: Troponin-I HS 23 pg/mL (3.0-54.0)
[2021-08-11 05:20] VITALS: BP 128/76; PULSE 79; RESP 18; O2SAT 96
[2021-08-11 05:27] VITALS: RESP 16
== END 2021-08-11 05:46 | disposition home or self-care (01) ==
PROVIDERS: Emergency Provider Emergency Medicine; PCP Family Medicine
DX: R07.9 Chest pain, unspecified (principal); K21.9 Gastro-esophageal reflux disease without esophagitis; Z79.01 Long term (current) use of anticoagulants; Z79.899 Other long term (current) drug therapy; Z86.16 Personal history of COVID-19; Z87.01 Personal history of pneumonia (recurrent); Z86.711 Personal history of pulmonary embolism
CPT/HCPCS: 71275; 80048; 80076; 83690; 84484; 85025; 93005; 96374; 96375; 99285; Q9967; A4216; J2405

== ENCOUNTER → 2021-08-15 09:55 | Outpatient (CLI) | payer OTHER, SELFPAY ==
--- NOTE | 2021-08-15 09:57 | ECHOCS_ITS ---
Reason For Study: PE Procedure This was a 2D Doppler, Color Flow transthoracic echocardiogram. The study was technically difficult. Due to body habitus. Contrast injection was performed. Exam performed in department. Left Ventricle Normal LV size. Left ventricular systolic function is normal. The estimated ejection fraction is 60 %. Normal diastology for age. No regional wall motion abnormalities noted. Right Ventricle Normal RV size. Normal systolic function. Atria Normal left atrium. Normal right atrium. Mitral Valve Normal mitral valve. Tricuspid Valve Normal tricuspid valve. Aortic Valve The aortic valve is not well visualized. Pulmonic Valve Normal pulmonic valve. Mild (1+) pulmonic valve insufficiency. Great Vessels Normal aortic root. The pulmonary artery is normal size. Pericardium/Pleural No pericardial effusion. Medication 22 gauge I.V. with prn adaptor inserted into left arm. Diluted definity 3.0ml given slow IV push to enhance endocardial definition. MMode/2D Measurements & Calculations LVIDd: 4.9 cm IVSd: 1.1 cm Ao root diam: 3.2 cm LVIDs: 3.0 cm LVPWd: 1.1 cm RVDd: 2.5 cm FS: 37.9 % LAV(MOD-bp): 53.2 ml LA A4 area: 17.1 cm2 LA dimension(2D): 4.0 cm LAV(MOD-bp) Indexed: 26.6 ml/m2 LAV(MOD-sp2): 53.5 ml LAV(MOD-sp4): 45.7 ml RA A4 area: 16.1 cm2 Time Measurements MV dec time: 0.13 sec Doppler Measurements & Calculations MV E max ken: 104.1 cm/sec Lat Peak E' Ken: 11.8 cm/sec Med Peak E' Ken: 9.6 cm/sec MV A max ken: 67.2 cm/sec E/E' lat: 8.8 E/E' med: 10.9 MV E/A: 1.5 Ao V2 max: 129.1 cm/sec LV V1 max: 109.9 cm/sec PA V2 max: 88.3 cm/sec Ao max P.7 mmHg LV V1 max P.8 mmHg ECHO/Echo Complete W/ Contrast Interpretation Summary Normal LV size. Left ventricular systolic function is normal. The estimated ejection fraction is 60 %. Normal diastology for age. Contrast injection was performed. Ordering Physician: Juan Manuel Leyva Referring Physician: Juan Manuel Leyva Performed By: Nancy Hoang, SHYAM, RVT
== END ==
PROVIDERS: PCP Family Medicine; Referring Provider Family Medicine; Visit Provider Family Medicine
DX: I26.99 Other pulmonary embolism without acute cor pulmonale (principal)
CPT/HCPCS: 93306; Q9957; A4216; C8929; J3490

== ENCOUNTER → 2021-09-22 09:18 | Outpatient (CLI) | payer OTHER, SELFPAY ==
[2021-09-22 10:05] LABS: Absolute Lymphocyte Count 2.79 X10^3/uL (0.83-4.51); Basophil# 0.03 X10^3/uL; Basophil% 0.4 % (0-1); Eosinophil# 0.15 X10^3/uL; Eosinophils% 1.9 % (0-5); Hematocrit 39.6 % (37-47); Hemoglobin 13.2 g/dL (12.0-15.0); Lymphocyte # 2.79 X10^3/ul (0.83-4.51); Lymphocyte % 36.2 % (19-41); Mean Corp Hgb Conc 33.3 g/dL (32-36); Mean Corpuscular Hgb 27.3 pg (27.0-32.0); Monocyte# 0.68 X10^3/uL; Monocyte% 8.8 % (0-10); NRBC Flagged by Analyzer 0 % (0-5); Neutrophil # 4.04 X10^3/uL (2.7-7.7); Neutrophil % 52.4 % (47-70); Platelet Count 379 K/mm3 (150-450); RBC Distribution Width CV 13.5 % (11.6-14.6); RBC Distribution Width SD 40.6 fl (35.1-43.9); Red Blood Count 4.83 M/mm3 (4.2-5.4); White Blood Count 7.7 K/mm3 (4.4-11.0)
[2021-09-22 10:38] LABS: AST(SGOT) 44 U/L (15-37); Alanine Aminotransfer ALT/SGPT 99 U/L (13-56); Albumin, Serum 3.7 g/dL (3.2-5.0); Alkaline Phosphatase 60 U/L (45-117); Anion Gap 2 (5-15); BUN 11 mg/dL (7-18); BUN/Creat Ratio 16.8 RATIO (10-20); Calcium,Total 9.5 mg/dL (8.5-10.1); Chloride 107 mmol/L (98-107); Creatinine, Serum 0.66 mg/dL (0.55-1.02); EST Glomerular Filtration Rate 103 mL/min (>60); Est Glom Filt Rate - Afr Amer 125 mL/min (>60); Globulin 3.7 g/dL (2.2-4.2); Glucose 89 mg/dL (74-106); Potassium 3.5 mmol/L (3.5-5.1); Protein, Total 7.4 g/dL (6.4-8.2); Sodium Level 138 mmol/L (136-145)
== END ==
PROVIDERS: PCP Family Medicine; Visit Provider Internal Medicine Rheumatology
DX: M06.4 Inflammatory polyarthropathy (principal); M79.7 Fibromyalgia; F32.A Depression, unspecified; K21.9 Gastro-esophageal reflux disease without esophagitis; E78.5 Hyperlipidemia, unspecified; R51.9 Headache, unspecified; R19.7 Diarrhea, unspecified; Z79.899 Other long term (current) drug therapy
CPT/HCPCS: 36415; 80053; 85025

== ENCOUNTER → 2021-10-16 09:48 | Outpatient (CLI) | payer OTHER, SELFPAY ==
--- NOTE | 2021-10-16 09:57 | RAD_ITS ---
EXAM: XR CERVICAL SPINE, 4 OR 5 VIEWS CLINICAL INDICATION: CERVICALGIA TECHNIQUE: Frontal, lateral and oblique views of the cervical spine. This report was created using St[employer] report [employer] technology. COMPARISON: None. FINDINGS: VERTEBRAE: Unremarkable. Preserved vertebral body height. No acute fracture. No spondylolisthesis. Preservation of the normal cervical lordosis. No significant facet arthropathy. DISC SPACES: Unremarkable. Disc spaces are maintained. SOFT TISSUES: Unremarkable. No prevertebral soft tissue widening. LUNG APICES: Clear. RAD/Cerv Spine 4 or 5 Views IMPRESSION: No evidence of acute fracture or spondylolisthesis. Electronically Signed: Bg Graham MD at 14:44 EST , Service support ,
== END ==
PROVIDERS: PCP Family Medicine
DX: M54.2 Cervicalgia (principal)
CPT/HCPCS: 72050

== ENCOUNTER 2021-12-06 09:43 | Outpatient (CLI) | payer OTHER, SELFPAY ==
[2021-12-06 12:20] LABS: Prothrombin Time (Protime)PT. 12.8 SECONDS (11.7-14.9)
[2021-12-06 12:21] LABS: Partial Thromboplast Time 35.5 Seconds (24.1-36.2)
[2021-12-06 12:33] LABS: ALB/GLOB Ratio 1.1 RATIO (0.9-2.4); AST(SGOT) 34 U/L (15-37); Alanine Aminotransfer ALT/SGPT 76 U/L (13-56); Albumin, Serum 3.8 g/dL (3.2-5.0); Alkaline Phosphatase 60 U/L (45-117); Anion Gap 7 (5-15); BUN 15 mg/dL (7-18); BUN/Creat Ratio 20.5 RATIO (10-20); Calcium,Total 9.1 mg/dL (8.5-10.1); Chloride 107 mmol/L (98-107); Cholesterol 205 mg/dL (200); Creatinine, Serum 0.73 mg/dL (0.55-1.02); EST Glomerular Filtration Rate 91 mL/min (>60); Est Glom Filt Rate - Afr Amer 110 mL/min (>60); Globulin 3.4 g/dL (2.2-4.2); Glucose 91 mg/dL (74-106); High Density Lipoprotein 55 mg/dL; Potassium 3.6 mmol/L (3.5-5.1); Protein, Total 7.2 g/dL (6.4-8.2); Sodium Level 139 mmol/L (136-145); Triglycerides 111 mg/dL; Very Low Density Lipoprotein 22 mg/dL (5-40)
[2021-12-06 13:03] LABS: Vitamin B12 386 pg/mL (211-911)
[2021-12-07 17:07] LABS: Dilute Prothrombin Time (dPT) 38.1 sec (0.0-47.6); Dilute Russell Viper Venom 43.6 sec (0.0-47.0); Thrombin Time 18.4 sec (0.0-23.0); dPT Confirm Ratio 1.11 Ratio (0.00-1.34)
[2021-12-08 16:37] LABS: Antithrombin 3 Function 97 % (75-135); Interpretation Comment: (.); Protein C, Functional 142 % (73-180)
== END 2021-12-06 23:59 | disposition short-term general hospital (02) ==
PROVIDERS: PCP Family Medicine; Referring Provider Family Medicine; Visit Provider Family Medicine
DX: U07.1 COVID-19 (principal); M06.4 Inflammatory polyarthropathy; I26.99 Other pulmonary embolism without acute cor pulmonale; M79.7 Fibromyalgia; R51.9 Headache, unspecified; F32.A Depression, unspecified; K21.9 Gastro-esophageal reflux disease without esophagitis; E78.5 Hyperlipidemia, unspecified; E53.8 Deficiency of other specified B group vitamins; R19.7 Diarrhea, unspecified; Z79.899 Other long term (current) drug therapy
CPT/HCPCS: 36415; 80053; 80061; 82607; 85300; 85303; 85610; 85730; 86769; 86900; 86901

== ENCOUNTER 2021-12-30 07:48 | Outpatient (CLI) | payer OTHER, SELFPAY ==
--- NOTE | 2021-12-30 07:52 | US_ITS ---
HISTORY: Elevated liver enzymes s/p cholecystectomy. TECHNIQUE: Love scale and color Doppler imaging was performed of the right upper quadrant. Number of images including paperwork: 67. COMPARISON: None. FINDINGS: LIVER: 18.7 cm in length. Increased echogenicity with a 2.2 x 1.8 x 4.1 cm septated cyst in the right lobe. No intrahepatic biliary ductal dilation. CBD: 6 mm in diameter, nondilated. GALLBLADDER: Surgically absent. PANCREAS: Mildly echogenic. RIGHT KIDNEY: 11.9 cm in length with a cortical thickness of 1.9 cm. No hydronephrosis or gross renal mass. US/Liver IMPRESSION: Hepatomegaly with hepatic steatosis. 4.1 cm hepatic cyst. Cholecystectomy. at 0918 Reported and signed by: Savana Condon MD Electronically Signed: Savana Condon MD at 9:17 EST ,
== END 2021-12-30 23:59 | disposition home or self-care (01) ==
LOC: US 07:50
PROVIDERS: PCP Family Medicine; Referring Provider Internal Medicine Rheumatology; Visit Provider Internal Medicine Rheumatology
DX: K76.0 Fatty (change of) liver, not elsewhere classified (principal); M06.4 Inflammatory polyarthropathy; K76.89 Other specified diseases of liver; M79.7 Fibromyalgia; R51.9 Headache, unspecified; F32.A Depression, unspecified; K21.9 Gastro-esophageal reflux disease without esophagitis; E78.5 Hyperlipidemia, unspecified; R19.7 Diarrhea, unspecified; Z79.899 Other long term (current) drug therapy
CPT/HCPCS: 76705

== ENCOUNTER 2022-02-26 10:00 | Outpatient (RCR) | payer OTHER, SELFPAY ==
--- NOTE | 2022-02-14 11:03 | HP.PTEVAL ---
Patient's Visit Information DIPAK DOSS is a 47 year old F referred to Physical Therapy by Dr. Mario Alberto Saldaña DO with a diagnosis of RIGHT CERVICAL RADICULITIS AND RIGHT BICEPS TENDONITIS. Date of Evaluation: 02/14/22 Physical Therapist: Sanaz Sorensen, PT, Cert MDT - Visit Plan Frequency: 2-3x /Week Duration: 4-6 Weeks Plan: NO MANUAL THERAPY OR TRACTION. US, E-STIM, MH OR CP. POSTURE CORRECTION/STRENGTHENING, INSTRUCTION IN APPROPRIATE BODY MECHANICS AND ACTIVITY MODIFICATIONS. CRISTIANO UE ROM, STRETCHING AND STRENGTHENING. HEP INSTRUCTION. 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 Disability: NO. Present symptoms: RIGHT SHLD PAIN WITH PAIN SHOOTING DOWN RIGHT ARM ALL THE WAY TO HER HAND. RIGHT NECK PAIN. CRISTIANO HAND NUMBNESS AND TINGLING RIGHT > LEFT. ACTUALLY ALSO GETS PAIN, NUMBNESS AND TINGLING DOWN THE LEFT UE TOO BUT MUCH MORE ON THE RIGHT. HEADACHES. PATIENT REPORTS SHE FEELS REALLY WEAK IN HER ARMS AND ESPECIALLY HER RIGHT ARM. Present since: ABOUT A YEAR AGO. Pain Scale: Worst - 9/10 Least - 1-/10. Currently: 12/14. Commenced as a result of: NO APPARENT REASON. Symptoms at onset: NUMBNESS IN BOTH ARMS. SEEMS LIKE THE LEFT HAS IMPROVED OVER TIME BUT NOT THE RIGHT. Worse: SLEEPING, CLEANING HOUSE, WORKING (LIFTING), DRIVING BUS, ANY KIND OF STRENUOUS ACTIVITY. Better: MOTRIN, CORTISONE SHOTS. Disturbed sleep: NO. Previous history/Previous treatment: 5 YEARS AGO DID BOOT CAMP AND HAD A LOT OF SHLD WEAKNESS AND PAIN WHITH OVER HEAD ACTIVITY BUT OTHERWISE UNREMARKABLE. OT FOR R CARPAL TUNNEL WITH SOME BENEFIT. This episode: R CORTISONE SHOT BACK OF SHLD THEN ANOTHER SHOT IN THE FRONT OF THE SHLD WITH SOME BENEFIT FROM BOTH SHOTS. MASSAGE THERAPY - NOT HELPFUL. NO NECK SURGERY. NO SHLD SX'S. NO PT. CHIROPRACTOR OCT 2021 X APPROX 6 VISITS WITHOUT BENEFIT. Dizziness: NO. Tinnitis: NO. Nausea: NO. Shortness of Breath: NO. Difficulty Swollowing: NO. Gait: NORMAL. Accidents: NO. Unexplained weight loss: NO. Imaging: RECENT R SHLD AND NECK X-RAYS. SEE [facility] EMR. NO L SHLD X-RAYS. NO MRI. R SHLD X-RAY IS NORMAL ON EMR BUT PATIENT REPORTS DR. SALDAÑA SAW A SMALL BONE SPUR THAT HE DOES NOT THINK IS CAUSING A PROBLEM. RECENT NECK X-RAY REPORT IS ALSO NORMAL. PMH/Recent major surgery: *RA, HIGH CHOLESTEROL, DEPRESSION. OTHER: PATIENT REPORTS Tracy ANTONIA ORDERED [facility] STUDY PENDING APRIL 2022. REPORTS ANTONIA THINKS SHE HAS CARPAL TUNNEL, TENDONITIS, ARTHRITIS AND SOME OTHER NERVE PROBLEM. - Objective Sitting Posture/Standing Posture: POOR. FH. RS'S. Active Correction of posture: BETTER. Other Observations: INDEP GAIT AND TRANSFERS. Motor deficit, PEAK FORCE: SHLD FLEX: R 12.2 LBS. L 14.1 LBS. SHLD EXT: R 11.3 LBS. L 20.3 LBS. SHLD ABD: R 12.5 LBS. L 18.8 LBS. SHLD ER: R 13 LBS. L 14.4 LBS. SHLD IR: R 13.5 LBS. L 21.4 LBS. ELBOW FLEX: R 16.6 LBS. L 17 LBS. ELBOW EXT: R 3.6 LBS. L 20.9 LBS. WRIST EXT: R 15.6 LBS. L 16 LBS. Sensory deficit: CRISTIANO UE LIGHT TOUCH GROSSLY INTACT AND SYMMETRICAL. ROM deficit: CRISTIANO UE'S WFL. Reflexes: UNABLE TO ELICIT CRISTIANO UE DTR'S. Dural Signs: POSITIVE CRISTIANO UE'S. Cervical Mvmt Loss: Flex: NIL. Pro: NIL. Ext: MOD. Ret: MOD. RSB: NIL. LSB: NIL. R Rot: MIN. L Rot: MIN. PATIENT DENIES INCREASED SX'S WITH CERVICAL ROM TESTING ALL PLANES. Postural strength: POOR. Palpation: NO ACUTE CERVICAL OR CRISTIANO SHLD TENDERNESS. TREATMENT: NEUROMUSCULAR REEDUCATION - INTRO TO RETRAINING OF MVMT AND POSTURE FOR SITTING, LYING AND STANDING ACTIVITIES. OTHER: CERVICAL DISTRACTION TESTING: NE. OTHER: PATIENT WITH DELAYED ONSET INCREASED CRISTIANO SHLD WEAKNESS FEELING END OF SESSION BUT UNABLE TO RELATE TO ANY SPECIFIC TESTING. - Balance/Special Test Scores Oswestry Neck Score: 10 - Goals Goal 1:: DECREASE C/O NECK AND RIGHT UE SX'S. Goal Time Frame: 4-6 Weeks Goal 2:: IMPROVE PERSONAL CARE, LIFTING, READING, SLEEP, WORK, DRIVING AND RECREATIONAL FUNCTION Goal Time Frame: 4-6 Weeks Goal 3:: INSTRUCT IN PROPHYLAXIS Goal Time Frame: 4-6 Weeks - Anticipated Interventions Patient/Client Instruction: Educate patient on: Condition, Plan of Care, Risk Factors For the Purpose of:: To improve self management Therapeutic Exercise to Include: Strength training, Body mechanics, Postural training, Flexibilty training, Neuromotor development, Scapular Strength/Stabilization For the Purpose of:: To decrease pain, To increase ROM, To improve muscle performance and motor function, To increase tolerance to activity/condition/position, To improve ability of physical actions for home/community/work/leisure TENS: Yes IF ES: Yes Cryotherapy (ice pack, ice massage): Yes Thermo therapy (hot pack): Yes Ultrasound (thermal/non thermal): Yes For the Purpose of:: To decrease pain, To improve nutrient delivery to tissue Thank you for the opportunity to evaluate your patient. For Medicare and Medicare HMO plans, please review the plan of care and approve it. It will need to be FAXED BACK to us at [phone] for Medicare purposes. For Medicare only, by signing this I certify the plan of care. Please let me know if there are questions or concerns regarding this plan of care. Physician Signature: Date:
--- NOTE | 2022-08-14 12:47 | HP.PTDCNRP_ITS ---
DIPAK DOSS was seen in my office for initial evaluation on 02/14/22. The following Plan of Care was established for this patient: Initial Frequency: 2-3x /Week Initial Duration: 4-6 Weeks Patient/Client Instruction: Educate patient on: Condition, Plan of Care, Risk Factors For the Purpose of:: To improve self management Therapeutic Exercise to Include: Strength training, Body mechanics, Postural training, Flexibilty training, Neuromotor development, Scapular Strength/Stabilization For the Purpose of:: To decrease pain, To increase ROM, To improve muscle performance and motor function, To increase tolerance to activit y/condition/position, To improve ability of physical actions for home/community/work/leisure TENS: Yes IF ES: Yes Cryotherapy (ice pack, ice massage): Yes Thermo therapy (hot pack): Yes Ultrasound (thermal/non thermal): Yes For the Purpose of:: To decrease pain, To improve nutrient delivery to tissue This patient was last seen in our office 02/26/22. Pertinent comments regarding their Physical therapy will appear below: This patient has not returned to Physical Therapy and is appropriate to return to MD for further follow-up as needed. At this point I will be discontinuing this patient from physical therapy. I w ould be happy to see this patient again in the future if found appropriate by the physician. Thank you! Sanaz Sorensen, PT, Cert MDT Balance/Gait/Functional tests - Balance/Special Test Scores Oswestry Neck Score: 10
== END 2022-02-26 19:00 | disposition home or self-care (01) ==
LOC: PT 10:00
PROVIDERS: PCP Family Medicine; Referring Provider Orthopaedic Surgery; Visit Provider Orthopaedic Surgery
DX: M75.21 Bicipital tendinitis, right shoulder (principal); M54.12 Radiculopathy, cervical region
CPT/HCPCS: 97014; 97035; 97112; 97162; 97530; G0283

== ENCOUNTER → 2022-02-28 | Outpatient (CLI) | payer OTHER, SELFPAY ==
[2022-02-28 10:00] LABS: Absolute Lymphocyte Count 2.67 X10^3/uL (0.83-4.51); Absolute Neutrophil Count 5.5 X10^3/uL (2.0-7.7); Basophil# 0.04 X10^3/uL; Basophil% 0.4 % (0-1); Eosinophil# 0.23 X10^3/uL; Eosinophils% 2.5 % (0-5); Hematocrit 42.3 % (37-47); Hemoglobin 14.2 g/dL (12.0-15.0); Lymphocyte # 2.67 X10^3/ul (0.83-4.51); Lymphocyte % 29.5 % (19-41); Mean Corp Hgb Conc 33.6 g/dL (32-36); Mean Corpuscular Hgb 27.7 pg (27.0-32.0); Mean Corpuscular Volume 82.5 fL (81-99); Mean Platelet Vol. 9.8 fl (6.2-12.0); Monocyte# 0.57 X10^3/uL; Monocyte% 6.3 % (0-10); NRBC Flagged by Analyzer 0 % (0-5); Neutrophil # 5.52 X10^3/uL (2.7-7.7); Platelet Count 423 K/mm3 (150-450); RBC Distribution Width CV 13.3 % (11.6-14.6); RBC Distribution Width SD 40.2 fl (35.1-43.9); Red Blood Count 5.13 M/mm3 (4.2-5.4); White Blood Count 9.1 K/mm3 (4.4-11.0)
--- NOTE | 2022-02-28 10:25 | RAD_ITS ---
STUDY: X-RAY CHEST REASON FOR EXAM: Female, 47 years old. Pain. TECHNIQUE: Frontal and lateral views of the chest. COMPARISON: 08/07/2021. FINDINGS: The lungs are clear and expanded. There is no demonstrated pleural abnormality. Normal size heart. Normal mediastinum and latisha. Normal visualized pulmonary arteries. Normal visualized aortic arch and descending thoracic aorta. Normal visualized thoracic spine. Normal visualized ribs, clavicles, and shoulders. There is no demonstrated abnormality of the visualized soft tissue structures of the upper abdomen. RAD/Chest PA and Lateral IMPRESSION: No interval change. Normal chest. Electronically Signed: Korey Muse MD at 11:53 EDT ,
[2022-02-28 10:34] LABS: ALB/GLOB Ratio 1.1 RATIO (0.9-2.4); AST(SGOT) 23 U/L (15-37); Alanine Aminotransfer ALT/SGPT 56 U/L (13-56); Albumin, Serum 3.9 g/dL (3.2-5.0); Alkaline Phosphatase 70 U/L (45-117); Anion Gap 6 (5-15); BUN 13 mg/dL (7-18); BUN/Creat Ratio 18.2 RATIO (10-20); Calcium,Total 9.5 mg/dL (8.5-10.1); Chloride 104 mmol/L (98-107); Creatinine, Serum 0.72 mg/dL (0.55-1.02); EST Glomerular Filtration Rate 93 mL/min (>60); Est Glom Filt Rate - Afr Amer 113 mL/min (>60); Globulin 3.5 g/dL (2.2-4.2); Glucose 91 mg/dL (74-106); Potassium 3.9 mmol/L (3.5-5.1); Protein, Total 7.4 g/dL (6.4-8.2); Sodium Level 138 mmol/L (136-145)
[2022-03-02 19:06] LABS: QNTFERON TB Mitogen Value > 10.00 IU/mL (.); QNTFERON TB Nil Value 0 IU/mL (.); QNTFERON TB1+ Ag Value 0.04 IU/mL (.); QNTFERON TB2+ Ag Value 0.07 IU/mL (.)
[2022-03-02 19:27] LABS: QNTIFERON TB Positive Criteria Negative (Negative)
== END | disposition home or self-care (01) ==
PROVIDERS: PCP Family Medicine; Referring Provider Internal Medicine Rheumatology; Visit Provider Internal Medicine Rheumatology
DX: M06.4 Inflammatory polyarthropathy (principal); M79.7 Fibromyalgia; R51.9 Headache, unspecified; F32.9 Major depressive disorder, single episode, unspecified; K21.9 Gastro-esophageal reflux disease without esophagitis; E78.5 Hyperlipidemia, unspecified; R19.7 Diarrhea, unspecified; M25.511 Pain in right shoulder; K76.0 Fatty (change of) liver, not elsewhere classified; Z79.899 Other long term (current) drug therapy
CPT/HCPCS: 36415; 71046; 80053; 85025; 86480

== ENCOUNTER → 2022-04-20 | Outpatient (CLI) | payer OTHER, SELFPAY ==
--- NOTE | 2022-04-20 07:07 | MRI_ITS ---
STUDY: MRI CERVICAL SPINE WITHOUT CONTRAST REASON FOR EXAM: Female, 47 years old. Pain into shoulders bilaterally, numbness and tingling in both hands, no trauma TECHNIQUE: Standardized fat and water weighted pulse sequences were obtained in the sagittal and axial planes. COMPARISON: None FINDINGS: Normal foramen magnum and brainstem-cervical cord junction. Normal craniovertebral junction. Normal anterior atlantoaxial articulation. Normal odontoid process. Normal cervical lordosis. Normal vertebral bodies and posterior osseous elements. C2-3: Normal endplates. Normal disc height, signal and morphology. Normal central canal and intervertebral neural foramina. C3-4: Normal endplates. Normal disc height, signal and morphology. Normal central canal and intervertebral neural foramina. C4-5: Normal endplates. Normal disc height, signal and morphology. Normal central canal and intervertebral neural foramina. C5-6: Normal endplates. Normal disc height, signal and morphology. Normal central canal and intervertebral neural foramina. C6-7: Normal endplates. Normal disc height, signal and morphology. Normal central canal and intervertebral neural foramina. C7-T1: Normal endplates. Normal disc height, signal and morphology. Normal central canal and intervertebral neural foramina. T1-T2, T2-T3 and T3-T4: (Sagittal only). All endplates. Normal disc height, signal and morphology. Normal central canal and intervertebral neural foramina. Normal cervical cord. Normal included upper thoracic spinal cord, brainstem and pituitary gland. Normal visualized soft tissue structures. MRI/Spine Cervical (Routine) IMPRESSION: Normal unenhanced MR examination of the cervical spine. Electronically Signed: Shawn Madera MD at 11:12 EDT ,
== END | disposition home or self-care (01) ==
PROVIDERS: PCP Family Medicine; Referring Provider Orthopaedic Surgery; Visit Provider Orthopaedic Surgery
DX: M50.20 Other cervical disc displacement, unspecified cervical region (principal); R20.0 Anesthesia of skin
CPT/HCPCS: 72141

== ENCOUNTER → 2022-08-22 | Outpatient (CLI) | payer OTHER, SELFPAY ==
[2022-08-22 12:26] LABS: Absolute Lymphocyte Count 3.08 X10^3/uL (0.83-4.51); Absolute Neutrophil Count 3.8 X10^3/uL (2.0-7.7); Basophil# 0.04 X10^3/uL; Basophil% 0.5 % (0-1); Eosinophil# 0.14 X10^3/uL; Eosinophils% 1.8 % (0-5); Hematocrit 41.7 % (37-47); Hemoglobin 14.3 g/dL (12.0-15.0); Lymphocyte # 3.08 X10^3/ul (0.83-4.51); Lymphocyte % 40.3 % (19-41); Mean Corp Hgb Conc 34.3 g/dL (32-36); Mean Corpuscular Volume 81.8 fL (81-99); Mean Platelet Vol. 10.3 fl (6.2-12.0); Monocyte# 0.53 X10^3/uL; Monocyte% 6.9 % (0-10); NRBC Flagged by Analyzer 0 % (0-5); Neutrophil # 3.83 X10^3/uL (2.7-7.7); Neutrophil % 50.2 % (47-70); Platelet Count 434 K/mm3 (150-450); RBC Distribution Width SD 38.8 fl (35.1-43.9); White Blood Count 7.6 K/mm3 (4.4-11.0)
[2022-08-22 12:41] LABS: ALB/GLOB Ratio 1.1 RATIO (0.9-2.4); AST(SGOT) 30 U/L (15-37); Alanine Aminotransfer ALT/SGPT 58 U/L (13-56); Alkaline Phosphatase 60 U/L (45-117); Anion Gap 8 (5-15); BUN 16 mg/dL (7-18); BUN/Creat Ratio 18.9 RATIO (10-20); Calcium,Total 9.7 mg/dL (8.5-10.1); Chloride 104 mmol/L (98-107); Creatinine, Serum 0.84 mg/dL (0.55-1.02); EST Glomerular Filtration Rate 77 mL/min (>60); Est Glom Filt Rate - Afr Amer 93 mL/min (>60); Globulin 3.6 g/dL (2.2-4.2); Glucose 117 mg/dL (74-106); Potassium 3.6 mmol/L (3.5-5.1); Protein, Total 7.6 g/dL (6.4-8.2); Sodium Level 136 mmol/L (136-145); Vitamin D,25 Hydroxy 34.4 ng/mL
[2022-08-22 12:52] LABS: Cholesterol 219 mg/dL (200); High Density Lipoprotein 55 mg/dL; Thyroid Stim Hormone (TSH) 1.22 uIU/mL (0.358-3.74); Triglycerides 155 mg/dL; Very Low Density Lipoprotein 31 mg/dL (5-40)
== END | disposition home or self-care (01) ==
PROVIDERS: PCP Family Medicine; Referring Provider Internal Medicine Rheumatology; Visit Provider Internal Medicine Rheumatology
DX: M06.4 Inflammatory polyarthropathy (principal); M79.7 Fibromyalgia; M25.511 Pain in right shoulder; F32.A Depression, unspecified; K21.9 Gastro-esophageal reflux disease without esophagitis; E78.5 Hyperlipidemia, unspecified; R19.7 Diarrhea, unspecified; R51.9 Headache, unspecified; K76.0 Fatty (change of) liver, not elsewhere classified; Z79.899 Other long term (current) drug therapy
CPT/HCPCS: 36415; 80053; 80061; 82306; 82533; 84443; 85025

== ENCOUNTER → 2022-12-18 | Outpatient (CLI) | payer OTHER, SELFPAY ==
[2022-12-18 12:06] LABS: Absolute Lymphocyte Count 3.28 X10^3/uL (0.83-4.51); Absolute Neutrophil Count 5.3 X10^3/uL (2.0-7.7); Basophil# 0.04 X10^3/uL; Basophil% 0.4 % (0-1); Eosinophil# 0.13 X10^3/uL; Eosinophils% 1.4 % (0-5); Hematocrit 43.5 % (37-47); Hemoglobin 14.4 g/dL (12.0-15.0); Lymphocyte # 3.28 X10^3/ul (0.83-4.51); Lymphocyte % 35.1 % (19-41); Mean Corp Hgb Conc 33.1 g/dL (32-36); Mean Corpuscular Hgb 28.2 pg (27.0-32.0); Mean Corpuscular Volume 85.3 fL (81-99); Mean Platelet Vol. 10.6 fl (6.2-12.0); Monocyte# 0.57 X10^3/uL; Monocyte% 6.1 % (0-10); NRBC Flagged by Analyzer 0 % (0-5); Neutrophil % 56.8 % (47-70); Platelet Count 415 K/mm3 (150-450); RBC Distribution Width SD 40.5 fl (35.1-43.9); White Blood Count 9.3 K/mm3 (4.4-11.0)
[2022-12-18 12:20] LABS: ALB/GLOB Ratio 1.1 RATIO (0.9-2.4); AST(SGOT) 23 U/L (15-37); Alanine Aminotransfer ALT/SGPT 40 U/L (13-56); Albumin, Serum 4.1 g/dL (3.2-5.0); Alkaline Phosphatase 52 U/L (45-117); Anion Gap 8 (5-15); BUN 26 mg/dL (7-18); BUN/Creat Ratio 29.6 RATIO (10-20); Chloride 107 mmol/L (98-107); Creatinine, Serum 0.88 mg/dL (0.55-1.02); EST Glomerular Filtration Rate 73 mL/min (>60); Est Glom Filt Rate - Afr Amer 89 mL/min (>60); Globulin 3.9 g/dL (2.2-4.2); Glucose 112 mg/dL (74-106); Potassium 4.1 mmol/L (3.5-5.1); Sodium Level 140 mmol/L (136-145)
== END | disposition home or self-care (01) ==
LOC: MTLAB 09:36
PROVIDERS: PCP Family Medicine; Referring Provider Internal Medicine Rheumatology; Visit Provider Internal Medicine Rheumatology
DX: M06.09 Rheumatoid arthritis without rheumatoid factor, multiple sites (principal); K76.0 Fatty (change of) liver, not elsewhere classified; Z79.899 Other long term (current) drug therapy
CPT/HCPCS: 36415; 80053; 85025

== ENCOUNTER → 2023-02-16 | Outpatient (CLI) | payer OTHER, SELFPAY ==
--- NOTE | 2023-02-16 08:45 | MRI_ITS ---
HISTORY: Low back pain radiating into left hip and thigh, right buttock pain x 2 weeks, NKI. TECHNIQUE: Multiplanar and multisequence MR images of the lumbar spine were obtained without intravenous contrast. 107 images. COMPARISON: XR 02/12/2023. FINDINGS: VERTEBRAE: Vertebral body heights maintained. 11 mm T12 vertebral body hemangioma incidentally noted. No bone marrow signal abnormality in the lumbar spine. ALIGNMENT: No anterior or posterior subluxation. CONUS: Normal morphology and position of the conus medullaris at T12-L1. INTERVERTEBRAL DISCS: T12-L1, L1-2, L2-3: No significant posterior disc protrusion, central canal stenosis, or foraminal narrowing. L3-4: Minimal disc bulge with facet arthropathy. No significant central canal stenosis. Mild left foraminal narrowing with abutment of the left L3 nerve root. L4-5: Mild degenerative loss of T2 intervertebral disc signal. Mild posterior disc protrusion with facet arthropathy resulting in minimal narrowing of the thecal sac and mild bilateral foraminal narrowing. L5-S1: No significant posterior disc protrusion, central canal stenosis, or foraminal narrowing. SOFT TISSUES: No paraspinal fluid collection. 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 Mild left foraminal narrowing and left nerve root abutment at L3-4. Mild bilateral foraminal narrowing at L4-5. Electronically Signed: Savana Condon MD at 10:51 EDT ,
== END | disposition home or self-care (01) ==
LOC: MRI 08:18
PROVIDERS: PCP Family Medicine; Referring Provider Orthopaedic Surgery; Visit Provider Orthopaedic Surgery
DX: M51.36 Other intervertebral disc degeneration, lumbar region (principal); M48.061 Spinal stenosis, lumbar region without neurogenic claudication
CPT/HCPCS: 72148

== ENCOUNTER → 2023-03-11 | Outpatient (CLI) | payer OTHER, SELFPAY ==
[2023-03-11 12:04] LABS: Absolute Lymphocyte Count 3.12 X10^3/uL (0.83-4.51); Absolute Neutrophil Count 4.4 X10^3/uL (2.0-7.7); Basophil# 0.03 X10^3/uL; Basophil% 0.4 % (0-1); Eosinophil# 0.19 X10^3/uL; Eosinophils% 2.3 % (0-5); Hematocrit 43.9 % (37-47); Hemoglobin 14.6 g/dL (12.0-15.0); Lymphocyte # 3.12 X10^3/ul (0.83-4.51); Lymphocyte % 37.6 % (19-41); Mean Corp Hgb Conc 33.3 g/dL (32-36); Mean Corpuscular Hgb 28.3 pg (27.0-32.0); Mean Corpuscular Volume 85.1 fL (81-99); Mean Platelet Vol. 10.7 fl (6.2-12.0); Monocyte# 0.59 X10^3/uL; Monocyte% 7.1 % (0-10); NRBC Flagged by Analyzer 0 % (0-5); Neutrophil # 4.36 X10^3/uL (2.7-7.7); Neutrophil % 52.5 % (47-70); Platelet Count 469 K/mm3 (150-450); RBC Distribution Width CV 13.6 % (11.6-14.6); RBC Distribution Width SD 42.2 fl (35.1-43.9); Red Blood Count 5.16 M/mm3 (4.2-5.4); White Blood Count 8.3 K/mm3 (4.4-11.0)
[2023-03-11 12:31] LABS: ALB/GLOB Ratio 1.1 RATIO (0.9-2.4); AST(SGOT) 22 U/L (15-37); Alanine Aminotransfer ALT/SGPT 39 U/L (13-56); Alkaline Phosphatase 64 U/L (45-117); Anion Gap 7 (5-15); BUN 21 mg/dL (7-18); BUN/Creat Ratio 27.4 RATIO (10-20); Calcium,Total 10.1 mg/dL (8.5-10.1); Chloride 107 mmol/L (98-107); Creatinine, Serum 0.77 mg/dL (0.55-1.02); EST Glomerular Filtration Rate 86 mL/min (>60); Est Glom Filt Rate - Afr Amer 104 mL/min (>60); Globulin 3.6 g/dL (2.2-4.2); Glucose 97 mg/dL (74-106); Potassium 3.9 mmol/L (3.5-5.1); Protein, Total 7.6 g/dL (6.4-8.2); Sodium Level 139 mmol/L (136-145)
== END | disposition home or self-care (01) ==
PROVIDERS: PCP Family Medicine; Referring Provider Internal Medicine Rheumatology; Visit Provider Internal Medicine Rheumatology
DX: M06.09 Rheumatoid arthritis without rheumatoid factor, multiple sites (principal); Z79.899 Other long term (current) drug therapy
CPT/HCPCS: 36415; 80053; 85025

== ENCOUNTER → 2023-03-18 | Outpatient (CLI) | payer OTHER, SELFPAY ==
--- NOTE | 2023-03-18 11:10 | RAD_ITS ---
INDICATION: PAIN EXAMINATION/TECHNIQUE: X-RAY - XR Hip Unilateral with Pelvis when performed; 2-3 Views COMPARISON: None. FINDINGS: Clips are seen in the pelvis consistent with prior tubal ligation. PELVIC BONES: No displaced fracture, destructive or sclerotic lesions. Note that overlapping bowel shadows may however obscure fine detail. Sacroiliac joints are unremarkable. No widening of the pubic symphysis. HIPS: The articular structures are unremarkable. No displaced fracture seen in this frontal view. SOFT TISSUES: No soft tissue swelling or gas. RAD/HIP, UNI W/ Pelvis 2-3 Views IMPRESSION: No evidence of displaced pelvic or hip fracture. Electronically Signed: Harry Colindres MD, JUAN at 18:50 EDT ,
== END | disposition home or self-care (01) ==
PROVIDERS: PCP Family Medicine; Referring Provider Anesthesiology Pain Medicine; Visit Provider Anesthesiology Pain Medicine
DX: M25.552 Pain in left hip (principal)
CPT/HCPCS: 73502

== ENCOUNTER → 2023-04-17 | Outpatient (CLI) | payer OTHER, SELFPAY ==
[2023-04-17 15:41] LABS: Cholesterol 212 mg/dL (200); High Density Lipoprotein 62 mg/dL; Triglycerides 88 mg/dL; Very Low Density Lipoprotein 18 mg/dL (5-40)
== END | disposition home or self-care (01) ==
LOC: MFPLAB 11:44
PROVIDERS: PCP Family Medicine; Visit Provider Family Medicine
DX: E78.5 Hyperlipidemia, unspecified (principal)
CPT/HCPCS: 36415; 80061

== ENCOUNTER → 2023-07-19 | Outpatient (CLI) | payer OTHER, SELFPAY ==
[2023-07-19 15:31] LABS: Absolute Lymphocyte Count 4.03 X10^3/uL (0.83-4.51); Basophil# 0.04 X10^3/uL; Basophil% 0.4 % (0-1); Eosinophil# 0.13 X10^3/uL; Eosinophils% 1.2 % (0-5); Hematocrit 42.8 % (37-47); Hemoglobin 14.4 g/dL (12.0-15.0); Lymphocyte # 4.03 X10^3/ul (0.83-4.51); Lymphocyte % 36.6 % (19-41); Mean Corp Hgb Conc 33.6 g/dL (32-36); Mean Corpuscular Volume 86.3 fL (81-99); Mean Platelet Vol. 10.4 fl (6.2-12.0); Monocyte# 0.81 X10^3/uL; Monocyte% 7.4 % (0-10); NRBC Flagged by Analyzer 0 % (0-5); Neutrophil # 5.97 X10^3/uL (2.7-7.7); Neutrophil % 54.1 % (47-70); Platelet Count 467 K/mm3 (150-450); RBC Distribution Width CV 12.5 % (11.6-14.6); RBC Distribution Width SD 39.2 fl (35.1-43.9); Red Blood Count 4.96 M/mm3 (4.2-5.4)
[2023-07-19 16:07] LABS: ALB/GLOB Ratio 1.2 RATIO (0.9-2.4); AST(SGOT) 30 U/L (15-37); Alanine Aminotransfer ALT/SGPT 53 U/L (13-56); Albumin, Serum 4.1 g/dL (3.2-5.0); Alkaline Phosphatase 56 U/L (45-117); Anion Gap 5 (5-15); BUN 19 mg/dL (7-18); BUN/Creat Ratio 23.3 RATIO (10-20); Calcium,Total 9.6 mg/dL (8.5-10.1); Chloride 108 mmol/L (98-107); Creatinine, Serum 0.82 mg/dL (0.55-1.02); EST Glomerular Filtration Rate 80 mL/min (>60); Est Glom Filt Rate - Afr Amer 96 mL/min (>60); Globulin 3.5 g/dL (2.2-4.2); Glucose 93 mg/dL (74-106); Potassium 3.9 mmol/L (3.5-5.1); Protein, Total 7.6 g/dL (6.4-8.2); Sodium Level 138 mmol/L (136-145)
== END | disposition home or self-care (01) ==
LOC: MTLAB 11:54
PROVIDERS: PCP Family Medicine; Referring Provider Internal Medicine Rheumatology; Visit Provider Internal Medicine Rheumatology
DX: M06.09 Rheumatoid arthritis without rheumatoid factor, multiple sites (principal); Z79.899 Other long term (current) drug therapy
CPT/HCPCS: 36415; 80053; 85025

== ENCOUNTER 2023-07-22 09:30 | Outpatient (RCR) | payer OTHER, SELFPAY ==
--- NOTE | 2023-07-02 11:32 | HP.PTEVAL ---
Patient's Visit Information Visit Information Visit Information: DIPAK DOSS is a 48 year old F referred to Physical Therapy by Dr. Jarrod Ferreira DO with a diagnosis of Sciatic nerve lesion. Date of Evaluation: 07/02/23 Physical Therapist: Bg Marquez, PT, ATC Visit Plan Frequency: 2-3x /Week Duration: 3 Weeks Plan: Postural edu, REIL, L/S stab ex's, and HEP Subjective Subjective: Pt reports she has had L LE pain that radiates down to her knee for 4-5 months. Pt reports she had an epidural performed at that time which did help a lot, but notes she still has the pain present. Pt notes she has had injections into her L hip as well. Pt notes she had an MRI which revealed she has a bulging disk, but notes she was told that the bulge was not bad enough for surgery. Pt notes she has trouble getting to sleep at this time secondary to pain. 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 Prolonged ambulation results in increased pain. Pt reports changing positions helps to decrease her pain. 5/10 pain at rest, 10/10 pain at worst (doing yard work and house work) Pain LBP and L LE pain: Pain Intensity (Out of 10): 5 Pain Intensity Range: 10 Objective Objective: Neuro: B LE sensation is WNL to light touch. B patellar reflex= 2/3 ROM: B LE's are WFL when compared bilaterally. L SB and extension of the L/S are minimally limited. MMT: B LE's are rated at 5/5 throughout Repeated movements: RFIS 10x3 peripheralized sx's into L glute. GORDON peripheralized sx's. REIL decreased pain Special tests: All neg today Balance/Special Test Scores Oswestry Low Back Score: 18 Goals Goal 1:: Decrease R LE radiculopathy x 50% to aid with ambulation Goal Time Frame: 4-6 Weeks Goal 2:: Decrease LBP x 50% to aid with sleep Goal Time Frame: 4-6 Weeks Goal 3:: Increase L SB ROM to WNL to aid with IADL's Goal Time Frame: 4-6 Weeks Goal 4:: I with HEP Goal Time Frame: 4-6 Weeks Rehabilitation Potential Physical Therapy Diagnosis: Pt has LBP, L LE radiculopathy, and limited L/S ext ROM secondary to deg changes in L/S Rehabilitation Potential: Good Anticipated Interventions Patient/Client Instruction: Educate patient on: Condition and Plan of Care For the Purpose of:: To improve self management Therapeutic Exercise to Include: Strength training, Endurance training, Body mechanics, Postural training, Dynamic Lumbar Stabilization and Irma Exercises For the Purpose of:: To decrease pain, To increase ROM and To improve muscle performance and motor function Text: Thank you for the opportunity to evaluate your patient. For Medicare and Medicare HMO plans, please review the plan of care and approve it. It will need to be FAXED BACK to us at [phone] for Medicare purposes. For Medicare only, by signing this I certify the plan of care. Please let me know if there are questions or concerns regarding this plan of care. Physician Signature: Date:
--- NOTE | 2023-10-30 09:37 | HP.PTDCNRP_ITS ---
Patient Information Patient Information: DIPAK DOSS was seen in my office for initial evaluation on 07/02/23. The following Plan of Care was established for this patient: POC Established Initial Frequency: 2-3x /Week Initial Duration: 3 Weeks Anticipated Interventions Patient/Client Instruction: Educate patient on: Condition and Plan of Care For the Purpose of:: To improve self management Therapeutic Exercise to Include: Strength training, Endurance training, Body mechanics, Postural training, Dynamic Lumbar Stabilization and Irma Ex ercises For the Purpose of:: To decrease pain, To increase ROM and To improve muscle performance and motor function Last Seen Last Seen: This patient was last seen in our office . Pertinent comments regarding their Physical therapy will appear below: Pt was treated for 9 PT visits for LBP through the date of 07/22/23. Pt has not returned through todays date and is discontinued at this time. At this point I will be discontinuing this patient from physical therapy. I would be happy to see this patient again in the future if found appropriate by the physician. Thank you! Bg Marquez, PT, ATC Balance/Gait/Functional tests Balance/Special Test Scores Oswestry Low Back Score: 18
== END 2023-07-22 19:00 | disposition home or self-care (01) ==
LOC: PT 09:30
PROVIDERS: PCP Family Medicine; Referring Provider Orthopaedic Surgery; Visit Provider Orthopaedic Surgery
DX: G57.02 Lesion of sciatic nerve, left lower limb (principal)
CPT/HCPCS: 97110; 97161

== ENCOUNTER → 2023-11-15 | Outpatient (CLI) | payer OTHER, SELFPAY ==
--- OUTSIDE RECORDS SUMMARY | 2023-11-15 09:45 | XMS RPT_ITS | CCD ---
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 Name Role Phone Nickolas Escalante Primary Care Provider Fast DO, Lynette A Primary Care Provider [phone] Fast DO, Lynette A Primary Care Provider [phone] Fast DO, Lynette A Primary Care Provider Fast DO, Lynette A Primary Care Provider Fast DO, Lynette A Primary Care Provider NEYHART DOW, CRISSY Attending Unavail able FAST, LYNETTE A Primary Care Unavailable NEYHART DOW, CRISSY Referring Unavail able FAST, LYNETTE A Primary Care Unavailable NEYHART DOW, CRISSY Attending Unavail able FAST, LYNETTE A Primary Care Unavailable NEYHART DOW, CRISSY Attending Unavail able FAST, LYNETTE A Primary Care Unavailable NEYHART DOW, CRISSY Referring Unavail able FAST, LYNETTE A Primary Care Unavailable NEYHART DOW, CRISSY Attending Unavail able FAST, LYNETTE A Primary Care Unavailable NEYHART DOW, CRISSY Referring Unavail able FAST, LYNETTE A Primary Care Unavailable NEYHART DOW, CRISSY Attending Unavail able FAST, LYNETTE A Primary Care Unavailable NEYHART DOW, CRISSY Attending Unavail able FAST, LYNETTE A Primary Care Unavailable Allergies Allergy Classification Reported Allergen(s) Allergy Type Date of Onset Reaction(s) Facility (20 sources) Acetaminophen / oxyCODONE; Translations: [OXYCODONE-ACETAM INOPHEN] Drug Allergy 6 [facility], [place] (1 source) Meperidine Drug Allergy 6 Itching [place], [place] (2 sources) Salicylic Acid; Translations: [SALICYLATES] Drug Allergy 6 Hives [place], [place] (20 sources) Latex; Translations: [LATEX] Drug Intolerance 5 Rash [facility] Work Phone: (20 sources) Meperidine; Translations: [MEPERIDINE (PF)] Drug Allergy 6 Itching [facility] Work Phone: (3 sources) Salicylic Acid Drug Allergy 6 [facility] Work Phone: (18 sources) Salicylate product Drug Intolerance 6 [facility] Work Phone: Medications Current Medications Medication Drug Class(es) Dates Sig (Normalized) Sig (Original) ethinyl estradiol 0.035 mg / norgestimate 0.25 mg oral tablet (1 source) Progestin, Estrogen Start: 05-20-2019 norgestimate-ethi nyl estradiol (ORTHO-CYCLEN) 0.25-35 MG-MCG per tablet Take 1 tablet by mouth 0 05/20/2019 Active phentermine hydrochloride 37.5 mg oral tablet (11 sources) Sympathomimetic Amine Anorectic Start: 09-17-2023 End: 12-16-2023 take 1 tablet by mouth once daily before breakfast Phentermine HCl 37.5 mg tablet Indications: Dyslipidemia , Class 1 obesity Take 1 tablet by mouth daily before breakfast for 90 days. 90 tablet 0 09/17/2023 12/16/2023 Active Completed/Discontinued Medications Medication Drug Class(es) Dates Sig (Normalized) Sig (Original) acetaminophen 325 mg / HYDROcodone bitartrate 5 mg oral tablet (1 source) Opioid Agonist Start: 09-22-2019 End: 09-22-2019 HYDROcodone-acetam inophen (NORCO) 5-325 MG per tablet 1 tablet azelaic acid 0.15 mg/mg topical gel (20 sources) Azelaic Acid 15 % gel Apply to affected area. 0 Active Problems Active Problems Problem Classification Problem Date Documented Date Episodic/Chronic Administrative/social admission (3 sources) Patient encounter status; Translations: [Persons encountering health services in other specified circumstances] Episodic Disorders of lipid metabolism (12 sources) Dyslipidemia; Translations: [Hyperlipidemia, unspecified] Onset: 03-19-2023 Chronic External cause codes: Fall (1 source) Fall; Translations: [Fall, initial encounter] Menopausal disorders (2 sources) Perimenopausal state; Translations: [Menopausal and female climacteric states] Onset: 01-15-2023 Chronic Menstrual disorders (20 sources) Excessive and frequent menstruation; Translations: [Excessive and frequent menstruation with regular cycle] Onset: 06-21-2010 06-21-2010 Chronic Open wounds of head; neck; and trunk (1 source) Scalp laceration; Translations: [Laceration of scalp, initial encounter] Episodic Other endocrine disorders (1 source) Hyperinsulinism; Translations: [Other hypoglycemia] 09-17-2023 Chronic Other nutritional; endocrine; and metabolic disorders (2 sources) Body mass index 30+ - obesity; Translations: [Body mass index (BMI) 33.0-33.9, adult] Chronic Other nutritional; endocrine; and metabolic disorders (2 sources) Obese class I; Translations: [Obesity, unspecified] Chronic Other nutritional; endocrine; and metabolic disorders (1 source) Obesity, unspecified; Translations: [Class 1 obesity] Onset: 09-17-2023 Chronic Other nutritional; endocrine; and metabolic disorders (10 sources) H/O: obesity; Translations: [Personal history of other endocrine, nutritional and metabolic disease] Onset: 03-19-2023 Episodic Other nutritional; endocrine; and metabolic disorders (9 sources) Overweight; Translations: [Overweight] Onset: 03-19-2023 Episodic Residual codes; unclassified (1 source) Flushing; Translations: [Flushing] Episodic Past or Other Problems Problem Classification Problem Date Documented Date Episodic/Chronic Biliary tract disease (20 sources) Biliary colic; Translations: [Calculus of bile duct without cholangitis or cholecystitis without obstruction] Onset: 12-13-2014 12-13-2014 Episodic Genitourinary symptoms and ill-defined conditions (20 sources) Microscopic hematuria; Translations: [Other microscopic hematuria] Onset: 09-21-2009 09-21-2009 Episodic Inflammatory diseases of female pelvic organs (20 sources) Vulvovaginitis; Translations: [Acute vaginitis] Onset: 07-23-2012 07-23-2012 Episodic Other inflammatory condition of skin (20 sources) Pruritus of skin; Translations: [Pruritus, unspecified] Onset: 07-23-2012 07-23-2012 Episodic Other nutritional; endocrine; and metabolic disorders (1 source) Overweight; Translations: [Overweight] Onset: 03-19-2023 Episodic Other nutritional; endocrine; and metabolic disorders (1 source) Personal history of other endocrine, nutritional and metabolic disease; Translations: [History of obesity] Onset: 03-19-2023 Episodic Other screening for suspected conditions (not mental disorders or infectious disease) (15 sources) Mammography abnormal; Translations: [Other abnormal and inconclusive findings on diagnostic imaging of breast] Onset: 01-15-2023 Episodic Residual codes; unclassified (1 source) Flushing; Translations: [Hot flashes] Onset: 01-15-2023 Episodic Spondylosis; intervertebral disc disorders; other back problems (20 sources) Low back pain; Translations: [Low back pain] Onset: 07-23-2012 07-23-2012 Episodic Results Test Name Value Interpretation Reference Range Facil ity Vital Signs Date Time Vital Sign Value Performing Clinician Faci lit 09-17-2023 09:38-0500 Body weight 69.85 kg Crissy Dow MD Work Phone: [facility] 09-17-2023 09:38-0500 Diastolic blood pressure 76 mm[Hg] Crissy Dow MD Work Phone: [facility] 09-17-2023 09:38-0500 Heart rate 95 /min Crissy Dow MD Work Phone: [facility] 09-17-2023 09:38-0500 SaO2% (BldA) [Mass fraction] 100 % Crissy Dow MD Work Phone: [facility] 09-17-2023 09:38-0500 Systolic blood pressure 132 mm[Hg] Crissy Dow MD Work Phone: [facility] 06-13-2023 09:44-0400 Body weight 70.31 kg Crissymanish Dow MD Work Phone: [facility] 06-13-2023 09:44-0400 Diastolic blood pressure 78 mm[Hg] Crissymanish Dow MD Work Phone: [facility] 06-13-2023 09:44-0400 Heart rate 100 /min Crissymanish Dow MD Work Phone: [facility] 06-13-2023 09:44-0400 SaO2% (BldA) [Mass fraction] 99 % Crissymanish Dow MD Work Phone: [facility] 06-13-2023 09:44-0400 Systolic blood pressure 110 mm[Hg] Crissymanish Dow MD Work Phone: [facility] 04-24-2023 10:51-0400 Body weight 72.12 kg Crissy Dow MD Work Phone: [facility] 04-24-2023 10:51-0400 Diastolic blood pressure 78 mm[Hg] Crissymanish Dow MD Work Phone: [facility] 04-24-2023 10:51-0400 Heart rate 102 /min Crissy Dow MD Work Phone: [facility] 04-24-2023 10:51-0400 SaO2% (BldA) [Mass fraction] 100 % Crissy Dow MD Work Phone: [facility] 04-24-2023 10:51-0400 Systolic blood pressure 118 mm[Hg] Crissy Dow MD Work Phone: [facility] 02-15-2023 09:45-0400 Body weight 78.93 kg Crissy Dow MD Work Phone: [facility] 02-15-2023 09:45-0400 Diastolic blood pressure 72 mm[Hg] Crissy Dow MD Work Phone: [facility] 02-15-2023 09:45-0400 Heart rate 88 /min Crissy Dow MD Work Phone: [facility] 02-15-2023 09:45-0400 SaO2% (BldA) [Mass fraction] 97 % Crissy Dow MD Work Phone: [facility] 02-15-2023 09:45-0400 Systolic blood pressure 116 mm[Hg] Crissy Dow MD Work Phone: [facility] 01-15-2023 11:36-0400 Body weight 83.46 kg Crissy Dow MD Work Phone: [facility] 01-15-2023 11:36-0400 Diastolic blood pressure 76 mm[Hg] Crissy Dow MD Work Phone: [facility] 01-15-2023 11:36-0400 Systolic blood pressure 110 mm[Hg] Crissy Dow MD Work Phone: [facility] 07-24-2022 11:20-0400 Body height 167.6 cm Crissy Dow MD Work Phone: [facility] 07-24-2022 11:20-0400 Body weight 93.44 kg Crissy Dow MD Work Phone: [facility] 07-24-2022 11:20-0400 Diastolic blood pressure 78 mm[Hg] Crissy Dow MD Work Phone: [facility] 07-24-2022 11:20-0400 Systolic blood pressure 120 mm[Hg] Crissy Dow MD Work Phone: [facility] 09-22-2019 22:16-0500 BP Diastolic 70 mm[Hg] [place] 09-22-2019 22:16-0500 BP Systolic 135 mm[Hg] Donaldo Gotti [employer] [place] , [place] 09-22-2019 22:16-0500 Pulse (Heart Rate) 70 /min Donaldo Gotti [employer] [place] 09-22-2019 22:16-0500 Pulse Oximetry 100 % Donaldo Gotti [employer] [place] , [place] 09-22-2019 22:16-0500 Respiratory Rate 16 /min [place]onaldo [place]otti [facility] 09-22-2019 21:17-0500 Body Temperature 97.3 [degF] Donaldo Gotti [employer] [place] Encounters Encounter Date Encounter Type Care Provider Facility Start: 09-17-2023 End: 09-17-2023 ambulatory CRISSY DOW Facility:[facility] Start: 09-17-2023 End: 09-17-2023 Patient encounter procedure Crissy Dow MD Work Phone: OB/Gynecology Procedures Date Procedure Procedure Detail Performing Clinician Start: 03-26-2023 Mammography Crissy Dow MD Work Phone: Start: 01-15-2023 Lipid 1996 panel - S hood or Plasma Crissy Dow MD Work Phone: Start: 03-20-2022 End: 03-20-2022 Mammography Crissy purvis MD Work Phone: Start: 08-10-2021 Mammography Crissy Dow MD Work Phone: Start: 09-22-2019 Ct head/brain w/o co ntrast material Donaldo Cantrell Work Phone: Start: 09-28-2016 Adult depression scr eening assessment Crissy Dow MD Work Phone: Plan of Treatment Date Care Activity Detail Author Start: 09-22-2029 Urine microalbumin profile DTaP,Tdap,Td Vaccine (2 - Td or Tdap) [facility] Start: 01-16-2028 Lipid 1996 panel - S hood or Plasma Lipid Screening [facility] Start: 01-16-2028 LIPID SCREEN LIPID SCREEN [facility] Start: 01-15-2026 DIABETES SCREEN DIABETES SCREEN [facility] Start: 01-15-2026 Diabetes Screening Diabetes Screenin g [facility] Start: 07-14-2025 HPV TESTING HPV TESTING [facility] Start: 07-14-2025 PAP TESTING PAP TESTING [facility] Start: 07-19-2024 DIABETES SCREEN DIABETES SCREEN [facility] Start: 03-26-2024 Mammography [facility] Start: 09-17-2023 End: 12-17-2023 25-hydroxyvitamin D3 [Mass/volume] in Serum or Plasma VITAMIN D 25 HYDROXY Lab Routine Encounter for vitamin deficiency screening Expected: 09/17/2023, Expires: 12/17/2023 [facility] Work Phone: Immunizations Immunization Date Immunization Notes Care Provider Sarah baron 08-16-2022 influenza virus vaccine, unspecified formulation Crissy Dow MD Work Phone: [facility] 09-22-2019 diphtheria, tetanus toxoids and acellular pertussis vaccine, unspecified formulation [facility] [place] 09-22-2019 tetanus toxoid, redu teri diphtheria toxoid, and acellular pertussis vaccine, adsorbed [facility], [place] 09-28-2016 influenza, injectabl e, quadrivalent, contains preservative Crissy Dow MD Work Phone: [facility] Payers Date Payer Category Payer Unknown MMO MMO [employer] [id number] 2019-Present [phone] [address] [place] [address] PPO [id number] 2019 Unknown [id number] 2019 Unknown [id number] Social History Date Type Detail Facility Start: 09-22-2019 End: 07-24-2022 Tobacco smoking status NHIS Never smoker [facility] Start: 09-22-2019 [facility] Start: 09-22-2019 [facility]: 1975 [facility] Start: 07-19-2021 End: 09-17-2023 Alcohol intake Current drinker of alcohol (finding) [facility] Start: 11-07-2011 History SDOH Alcohol Comment rarely 4-5 per year [facility] Start: 04-30-2022 End: 07-24-2022 Exposure to SARS-CoV-2 (event) Not sure [facility] Work Phone: Start: 11-19-2012 End: 07-24-2022 Tobacco use and exposure Smokeless tobacco non-user [facility] Work Phone: Start: 03-19-2023 End: 04-24-2023 History of Social function [facility] Start: 03-19-2023 End: 04-24-2023 Tobacco use panel [facility] National Score (1-10 0), lower number is lower risk 63 [facility] Clinical Notes 06-21-2010 to 09-17-2023 Patient InstructionsTelephone Encounter - Rosina Mcintosh RN - 09/17/2023 10:58 AM ESTTelephone Encounter - Elena Miller RN - 09/13/2023 4:11 PM ESTPatient InstructionsPatient Instructions Note Date & Type Note Facility 09-17-2023 Instructions Crissy Tovar MD - 09/17/2023 1:17 PM EST Educational Podcasts: The Dr. Turner Show- Real Conversations about Health and Weight * July 22, 2023 what you need to know about Carbohydrates and Weight *July 01, 2023 Protein why we need it and how to eat more Protein *June 10, 2023 Menopause and Weight Gain- All the Details with Dr. Annie Farfan *May 20, 2023 The Science Behind Ultra Processed Food and Weight Gain *March 04, 2023 Effects of sleep and Stress of Weight and Health with Dr. Rosanna Lerma-Withers, DO * February 25, 2023 Recognizing and Resolving Emotional Eating with Dr. Mccray Obesity: A Disease *February 25, 2023 Episode 80 Clinical conversations: The Role of Physical Activity in Weight Management * June 07, 2023 Episode 84 Clinical Conversations: NAFLD, The [place] Disease of Metabolic Syndrome *June 062019 Episode 20 Article Reviews: The Role Ultra Processed Diets Play in Weight Gain *May 18, 2020 Episode 21 Clinical Conversations: Breaking Weight Plateaus Tips for eating away from home: Event[employer]uet[employer] video: [email or web address]/watch?[email or web address]= [email or web address] Meals away from home make it harder to control ingredients, calories, and portions. This can be particularly challenging for people with Type 2 diabetes (and for those of us trying to avoid getting this condition). The following tips can help you enjoy eating out without abandoning your efforts to eat well. Ask how the food is prepared. Before you order, ask about ingredients and how the menu selections are prepared. Try to choose dishes made with whole grains, healthy oils, vegetables, and lean proteins. Meat that has been broiled, poached, baked, or grilled is a more health-conscious option than fried foods or dishes prepared with heavy sauces. Look for less. Your eyes are the perfect instrument for sizing up portion sizes. Use your estimating techniques to size up the food on your plate. 1 thumb tip = 1 teaspoon of peanut butter, butter, or sugar 1 finger = 1 oz. of cheese 1 fist = 1 cup cereal, pasta, or vegetables 1 handful = 1 oz. of nuts or pretzels 1 palm = 3 oz. of meat, fish, or poultry Plan on eating half your meal and take the rest home to enjoy for lunch or dinner the next day. Order an extra side of veggies. Non-starchy vegetables, such as green beans, broccoli, asparagus, or summer squash, will help you fill up with low-calorie choices. Think ahead. Learn important nutrition information ahead of time. Most fast-food chains provide calories, sodium, and fat content for their menu items. Check out www.Talknote for a listing of over 50,000 foods, including many restaurant items. You can also visit company-specific websites Dining Out Tips Dining out is tricky. You have less control over ingredients & portions so even when you think you re ordering healthy, it s likely way more calories & less nutrition than a similar meal you d make at home. Research shows people who do best losing weight & keeping it off don t dine out much only 2.5 times out of 21 meals in a week. So, when you do dine out, make sure to use these PRO TIPS to keep your body happy DINE OUT LIKE A PRO 1. RUIN Your Appetite. About 1.5 hrs before you go out, eat something to cut hunger so you don t get to the restaurant & dive head first into the breadbasket. Try a produce + protein snack such as an apple + almonds or celery + sunflower seed butter. 2. Know BEFORE You Go. Do a few minutes of research before you re swept up in a whirlwind of socializing & drinking. This could be as simple as perusing the online menu on your phone on the ride to the restaurant. 3. Order a [employer] BUNDLE. Pair a healthy superfood with a less-healthy craving. It s the only way to honor both your inner health nut and wild child. At a bb joint and really want the pulled pork? Get it - but instead of plopping it on a refined grain bun, ask to put it alongside a salad. 4. Limit FLAVORS. Research shows variety stimulates appetite, meaning tasting little bits of many different foods will trigger you to over eat. So if you find yourself facing a tableful of small plates or buffet-style eating, commit to your absolute favorites rather than sampling every option. 5. Entree + ONE. It s often not just the meal that racks up CRAP calories, it s also the add-on apps + drinks + desserts. Focus on your main and skip these extras, or at least just pick your favorite ONE. Smart: Pick an appetizer salad! When [place] researchers gave women a 100-calorie appetizer of either a salad or garlic bread, those who had the tiny salad ended up eating 21% less of their main course. The Role of Exercise in Weight Management No one can deny the psychological and physical benefits of exercise. Regular physical exercise aids in stress reduction, blood sugar control, cholesterol reduction, and improved sleep. It s also beneficial for weight control. both aerobic and strength training is beneficial for weight control. The ACSM ([place] [employer]) advises 200-300 minutes of moderate-intensity exercise to lose weight and sustain the loss. Aerobic exercise (walking, jogging, swimming, cycling) uses glucose (from glycogen) and triglycerides (from fat in storage) for energy. Strength or resistance training helps build muscle, which is more metabolic at rest than fat tissue. Both are beneficial to weight management. According to the 2018 Physical Activity Guidelines for Americans, Americans are advised to do a minimum of 30 minutes of physical activity most days of the week. This equates to 150 minutes of moderate activity or 75 minutes of vigorous exercise per week for general health. This should include both aerobic and strength training exercises. However, without calorie restriction, this isn t enough for weight loss or weight maintenance in most people. Currently, 53 % of Americans over 18 do adequate aerobic exercise while only 23% get both aerobic and muscle-strengthening activity. Most [place] adults are still too sedentary. A sedentary lifestyle is associated with cardiovascular disease, type 2 diabetes, and certain types of cancer including endometrial, colon, and lung cancer. Which types of exercise aid in weight control? How much should I do? In addition to caloric restriction, both aerobic and strength training is beneficial for weight control. The ACSM ([place] [employer]) advises 200-300 minutes of moderate-intensity exercise to lose weight and sustain the loss.Moderate-intensity exercises include brisk walking, jogging, using a rowing machine, or doing a 50-60 minute dance class. To enrollment services dean the level of intensity you should aim for, think of it this way: a person should be able to carry a conversation but not be able to sing. HIIT (high-intensity interval training) is one method of exercise that may be beneficial to those who are trying to lose weight and are short on time. One way to do HIIT involves doing high-intensity exercise (such as sprinting) for 60 seconds followed by 60 seconds of low-intensity exercise (walking) or rest. Exercises are repeated 8 times with rest for a few minutes, then repeated until 30 minutes of exercise is completed. A meta-analysis of 39 studies with 671 participants showed that HIIT reduced total, abdominal, and visceral fat mass in both men and women aged 38.8 +/- 14.4. Running was more effective than cycling in lowering total and visceral fat mass while low-intensity exercise (like walking) also resulted in abdominal and visceral fat loss. The latter took more time. HIIT training is typically done a few days a week. Individuals are advised to choose less intense exercises in between HIIT training days. More muscle matters! One of the biggest reasons (no pun intended) that adults gain weight over time is due to muscle loss. A comparison study of various methods of exercise was performed with older subjects with obesity. Subjects got randomly assigned to a weight control program along with one of four programs: aerobic training, resistance training, combined aerobic and resistance training, or a control group (no treatment). The initial outcome was the change in Physical Performance Test Scores from the start to 6 months after the study began, while secondary outcomes included changes in body composition, bone mineral density, and physical function. There were 141 total subjects that finished the study. Physical Performance Test score was higher in the combination group than in the aerobic and resistance groups. Bodyweight decreased in all exercise groups (9%) but not in the control group. Lean mass and bone density were maintained the most in the combination and resistance groups. Strength also increased in the resistance training and combination training groups. As muscle is more metabolic than fat, maintaining muscle mass is important to long-term weight control. It s important for individuals who have been sedentary to check with their doctors before embarking on a new exercise program. While HIIT training may be appropriate for younger individuals and/or those without comorbidities like cardiovascular disease, it s important to find an exercise that s enjoyable. Physical activities could include: Multiple bouts of moderately paced walking a few times per day. Use of an elliptical or rowing machine or a water aerobics class A walking video to use at home Playing tennis or pickleball Trying a regular or stationary bike or a spin class Joining a kickboxing or Marian class at a gym or rec center Resistance training may include: Use of stretch bands Multiple reps of small hand weights Use of nautilus machines A pilates class (in person or at home) 10 Easy Ways to Increase Your NEAT (Non-exercise activity thermogenesis) One of the best ways to lose those those extra pounds for good and keep it off is to make daily habit changes that can help burn those extra calories during activities you would normally do regardless. What I am talking about is increasing your NEAT. What is NEAT? It is Non-exercise activity thermogenesis. It is the activity that you are able to add into your daily routine outside of the gym that can help you in the long run. It can help you lose those ten pounds not this month, but over the next 12 months. In the grand scheme of things, would you not want to be ten pounds furnace brazer come next year? Now it is time for me to show you how. For a moment, imagine for me that you we are back before you started going to the gym. Imagine you were slowly gaining about a pound every two to three months. After 3 years of not exercising or working out you realized you are 10 pound heavier. All your clothes feel a little tighter and you just do not feel good in your own skin like how you used to. One day climbing up a flight of stairs you become way too easily winded, and not just that, but your knees are hurting. For some people, this is all too real. That was the wake up call to go to the gym to start exercising. Yet, why do you exercise when you gain weight? The reason is because you were taught that when you begin exercising, you begin to lose the weight you previously put on. The reason for the weight loss is because you have started to burn more calories compared to what you have consumed through your diet. When it comes to fat loss, you want to have a calorie deficit of about 500 calories a day so that about after a week you will be 3500 calories short. Your body is naturally programmed then to pull those calories of energy out of your stored fat. One pound of fat is roughly equal to 3500 calories. So when you burn those calories at the gym and create that calorie deficit you are burning through that stored fat. Another way you can create a calorie deficit is by changing up your diet. If you reduce the calories you eat by a small margin to create a 500 calories deficit then the same result will happen of burning a pound of stored body fat for every 3500 calories you did not eat that you may normally would have. Now finally for NEAT to come into play. We are going through your normal daily life but now you add some extra Non-exercise activity thermogenesis. You add some daily habits that helped you burn extra calories throughout your day. These extra calories that you burn add to your total daily energy expenditure which means that instead of those calories you were eating becoming stored as fat, you burned those calories, without even stepping into a gym. That is the power of NEAT. Sadly, most individuals do not know of the power of NEAT so most people do gain those ten pounds. Still, NEAT can help you lose that weight gained. Let s say now that you know the power of NEAT you want to incorporate it as part of your daily life and habits with that a positive change of dietary habits and a new exercise program. So let us say you are at the gym going three times a week and hike once a week burning a total of 2500 calories at the end of the week. With that you are improving your eating habits and diet and that has created an additional 2000 calories deficit at the end of the week. So so far a nice sum total of 4500 calories burned in just a single week. Now with a little magical NEAT you add just 100 calories a day of extra activity into your life and therefore an extra 700 calories that you burned in one week! So now you have 5200 calories a week burned between your diet, exercise, and nonexercise activity. Now over a course of a month you have 28,000 calories burned. Over three months time you have 84,000 calories. If you were to burn and have a calories deficit of 84,000 calories that is a sum total of 24 pounds lost! Now if you did not include NEAT into that math you would have lost 21.6 pounds. Still a great amount lost, but after a year you are missing out on those extra 10 pounds you could have lost by barely making a change. Here are 10 examples of NEAT to help you lose weight: WALKING: Walking is an easy activity nearly every one of us can accomplish. All we have to do is increase the number of steps we walk everyday and over time the extra energy used comes from our stores fat. It is also fairly simple to increase the number of steps you walk throughout the day. You can park your car down the street from your house. You can park at the farthest spot when shopping. You can go for an easy morning walk while you sip your morning cup of Cricket. All the steps will add up over time. COOKING: Most of us cook at least one meal throughout the day. During this time you can add in some simple movements. When I cook, I like to squat deep when I grab a tracy out of the cabinet. When I m reaching for the spices on the shelf I throw in a push-up. When I m waiting for the vegetables to steam I simply bounce or fidget in place while reading or going on social media. The point is while I m coming I am not standing still. For those times I m eating out, I will fidget in line by bouncing on one foot for a bit then switch it up. Sometimes I ll squat while waiting for my coffee. Again, the point is I keep moving. TELEVISION: I watch TV. I would even be lying to you if I said I hardly watch TV. I would be lying to you if I said I sit or lay down and watch TV. When watching my programs or sports on TV I am stretching. I lay down and stretch out my muscles. I ll use the couch as a steady surface to stretch my back out, my shoulders out, my legs out. I never just sit down and watch TV. I stretch and stay active and honestly it is one of the best habits I have created. It has helped me stay loose and I no longer feel guilty about watching TV. It is a win win. Morning Routine: Everyone has a morning routine that they go through during their work week. This is an easy time to add some extra movement to your day. The moment you get out of bed, do some push-ups. You do not even have to define a specific amount. Just drop down and give me however many you feel like. When you go to start the coffee pot, I want you to give me some jumping jacks. The moment you go and brush your teeth, give me some squats before you start or maybe even while you are brushing your teeth if you feel like really multitasking. Going out to get the morning paper, I want a burpee when you get to that paper. Just add in some simple movements or tasks that are associated with every stop along your morning routine. Evening Routine Same concept of your morning routine except I want you to do more stretching and more of a yoga pose idea with it. When you are going around the house shutting off the lights, take a deep breath and reach up and then down towards your toes. Locking the doors, I want a nice deep lunge stretch to help loosen up those hip flexors. Do simple more relaxing movements. Not only will these little movements help burn those extra calories, they are going to help mentally and physically relax you before you sleep. Your Car Most people are getting in and out of their car at least once a day. Every time you are getting into your car, add some movement. You can do jumping jacks, lunges, squats, some hip hinges, do something. I have known people where they will do as many reps of squats for each minute they expect to be driving. If they were going on a long road trip, they would break up those squats during the rest breaks. This is a very simple way to add in those extra calories burned. Personally I like to try getting into and out of my car without using my hands. Some days I will try to mix up only using one foot or the other with no hands trying to carefully slid out of the car. Ditch the Car: If you do not have a crazy commute to work or when running errands or even going out to eat ditch the car for the evening. Many people forget that they can walk places and it will in fact not take long at all. The walk will make you feel good, burn calories, and will help out our environment. Personally I try to ride my bike to work as often as I can. I know others who go and walk to the grocery store when buying only a handful of items. I know of others who take an uber to work in the morning and walk the distance home. The point is at least once a week ditch the car and ride your bike, walk, skate, or even run somewhere you need to go. Work Do not just sit there. If you have a job where you end up sitting down for an extended period of time you are doing harm to yourself. Luckily you can save yourself. Every 5 minutes you sound get up and stand up and squat down and then sit right back down. Anytime you have a break in your workflow, do a little twist in the chair stretching your back out. If you are stuck there reading your emails, add some arm circles in. You won t even have to get out of your chair for those arm circles. All the little movements add up. So please, do it for yourself and do not just sit there. You & Your Significant Other You don t have to be to have a significant other. Exercising with a bestie, a girlfriend or boyfriend or even a pet is a great way to spend time and feel great. Who does not like a long romantic walk down the beach in the sand? Who would not want to go walk or a hike and enjoy nature? Go and stefan your dog on all four and be a dog for fifteen minutes. They will enjoy it and so will you. The point is get moving with the your better half and you will be better for it. It will definitely bring the two of you closer as well. Clean Everything Cleaning is a very efficient way to multitask. You are getting those extra calories burned while cleaning whatever you wanted clean anyways. The fun part is make a game out of the cleaning. When I wash my car I see absolutely how fast I can get my car washed and clean. When I begin to vacuum I try to do everything while balancing on one leg or the other. When I sweep my house, I locator specialist the broomstick like I am trying to break it. The point is make it fun to clean and make it a good challenge. I put my laundry basket away from the washer and take jump shots with all my clothes into the washer. This is my favorite one and I highly recommend it if you have a phytopathologist. The cabrera is that you remember why you are doing every thing. Keep in mind your own goal. I want you to remember on why you are trying to lose weight in the first place. If you focus on that goal and remember to have fun with all these easy steps and tricks to add those extra calories burned, you will get to where you want to be and have fun in the process. Losing weight is not necessarily hard work. It can be fun if you are open to the idea and willing to look a bit goofy at times. I promise you though every one of these 10 ways to increase your daily NEAT will be effective and will all add up in the end. A great book that I would recommend for anyone reading is the Slight Edge. The book s main theme is that it is the little things done daily that lead to the biggest change. http://www.BigRoad[employer]/10-easy -mhhi-nx-lobowjxw-your-neat/ 10 Easy Ways to Increase Your NEAT (Non-exercise activity thermogenesis) One of the best ways to lose those those extra pounds for good and keep it off is to make daily habit changes that can help burn those extra calories during activities you would normally do regardless. What I am talking about is increasing your NEAT. What is NEAT? It is Non-exercise activity thermogenesis. It is the activity that you are able to add into your daily routine outside of the gym that can help you in the long run. It can help you lose those ten pounds not this month, but over the next 12 months. In the grand scheme of things, would you not want to be ten pounds furnace brazer come next year? Now it is time for me to show you how. For a moment, imagine for me that you we are back before you started going to the gym. Imagine you were slowly gaining about a pound every two to three months. After 3 years of not exercising or working out you realized you are 10 pound heavier. All your clothes feel a little tighter and you just do not feel good in your own skin like how you used to. One day climbing up a flight of stairs you become way too easily winded, and not just that, but your knees are hurting. For some people, this is all too real. That was the wake up call to go to the gym to start exercising. Yet, why do you exercise when you gain weight? The reason is because you were taught that when you begin exercising, you begin to lose the weight you previously put on. The reason for the weight loss is because you have started to burn more calories compared to what you have consumed through your diet. When it comes to fat loss, you want to have a calorie deficit of about 500 calories a day so that about after a week you will be 3500 calories short. Your body is naturally programmed then to pull those calories of energy out of your stored fat. One pound of fat is roughly equal to 3500 calories. So when you burn those calories at the gym and create that calorie deficit you are burning through that stored fat. Another way you can create a calorie deficit is by changing up your diet. If you reduce the calories you eat by a small margin to create a 500 calories deficit then the same result will happen of burning a pound of stored body fat for every 3500 calories you did not eat that you may normally would have. Now finally for NEAT to come into play. We are going through your normal daily life but now you add some extra Non-exercise activity thermogenesis. You add some daily habits that helped you burn extra calories throughout your day. These extra calories that you burn add to your total daily energy expenditure which means that instead of those calories you were eating becoming stored as fat, you burned those calories, without even stepping into a gym. That is the power of NEAT. Sadly, most individuals do not know of the power of NEAT so most people do gain those ten pounds. Still, NEAT can help you lose that weight gained. Let s say now that you know the power of NEAT you want to incorporate it as part of your daily life and habits with that a positive change of dietary habits and a new exercise program. So let us say you are at the gym going three times a week and hike once a week burning a total of 2500 calories at the end of the week. With that you are improving your eating habits and diet and that has created an additional 2000 calories deficit at the end of the week. So so far a nice sum total of 4500 calories burned in just a single week. Now with a little magical NEAT you add just 100 calories a day of extra activity into your life and therefore an extra 700 calories that you burned in one week! So now you have 5200 calories a week burned between your diet, exercise, and nonexercise activity. Now over a course of a month you have 28,000 calories burned. Over three months time you have 84,000 calories. If you were to burn and have a calories deficit of 84,000 calories that is a sum total of 24 pounds lost! Now if you did not include NEAT into that math you would have lost 21.6 pounds. Still a great amount lost, but after a year you are missing out on those extra 10 pounds you could have lost by barely making a change. Here are 10 examples of NEAT to help you lose weight: WALKING: Walking is an easy activity nearly every one of us can accomplish. All we have to do is increase the number of steps we walk everyday and over time the extra energy used comes from our stores fat. It is also fairly simple to increase the number of steps you walk throughout the day. You can park your car down the street from your house. You can park at the farthest spot when shopping. You can go for an easy morning walk while you sip your morning cup of Cricket. All the steps will add up over time. COOKING: Most of us cook at least one meal throughout the day. During this time you can add in some simple movements. When I cook, I like to squat deep when I grab a tracy out of the cabinet. When I m reaching for the spices on the shelf I throw in a push-up. When I m waiting for the vegetables to steam I simply bounce or fidget in place while reading or going on social media. The point is while I m coming I am not standing still. For those times I m eating out, I will fidget in line by bouncing on one foot for a bit then switch it up. Sometimes I ll squat while waiting for my coffee. Again, the point is I keep moving. TELEVISION: I watch TV. I would even be lying to you if I said I hardly watch TV. I would be lying to you if I said I sit or lay down and watch TV. When watching my programs or sports on TV I am stretching. I lay down and stretch out my muscles. I ll use the couch as a steady surface to stretch my back out, my shoulders out, my legs out. I never just sit down and watch TV. I stretch and stay active and honestly it is one of the best habits I have created. It has helped me stay loose and I no longer feel guilty about watching TV. It is a win win. Morning Routine: Everyone has a morning routine that they go through during their work week. This is an easy time to add some extra movement to your day. The moment you get out of bed, do some push-ups. You do not even have to define a specific amount. Just drop down and give me however many you feel like. When you go to start the coffee pot, I want you to give me some jumping jacks. The moment you go and brush your teeth, give me some squats before you start or maybe even while you are brushing your teeth if you feel like really multitasking. Going out to get the morning paper, I want a burpee when you get to that paper. Just add in some simple movements or tasks that are associated with every stop along your morning routine. Evening Routine Same concept of your morning routine except I want you to do more stretching and more of a yoga pose idea with it. When you are going around the house shutting off the lights, take a deep breath and reach up and then down towards your toes. Locking the doors, I want a nice deep lunge stretch to help loosen up those hip flexors. Do simple more relaxing movements. Not only will these little movements help burn those extra calories, they are going to help mentally and physically relax you before you sleep. Your Car Most people are getting in and out of their car at least once a day. Every time you are getting into your car, add some movement. You can do jumping jacks, lunges, squats, some hip hinges, do something. I have known people where they will do as many reps of squats for each minute they expect to be driving. If they were going on a long road trip, they would break up those squats during the rest breaks. This is a very simple way to add in those extra calories burned. Personally I like to try getting into and out of my car without using my hands. Some days I will try to mix up only using one foot or the other with no hands trying to carefully slid out of the car. Ditch the Car: If you do not have a crazy commute to work or when running errands or even going out to eat ditch the car for the evening. Many people forget that they can walk places and it will in fact not take long at all. The walk will make you feel good, burn calories, and will help out our environment. Personally I try to ride my bike to work as often as I can. I know others who go and walk to the grocery store when buying only a handful of items. I know of others who take an uber to work in the morning and walk the distance home. The point is at least once a week ditch the car and ride your bike, walk, skate, or even run somewhere you need to go. Work Do not just sit there. If you have a job where you end up sitting down for an extended period of time you are doing harm to yourself. Luckily you can save yourself. Every 5 minutes you sound get up and stand up and squat down and then sit right back down. Anytime you have a break in your workflow, do a little twist in the chair stretching your back out. If you are stuck there reading your emails, add some arm circles in. You won t even have to get out of your chair for those arm circles. All the little movements add up. So please, do it for yourself and do not just sit there. You & Your Significant Other You don t have to be to have a significant other. Exercising with a bestie, a girlfriend or boyfriend or even a pet is a great way to spend time and feel great. Who does not like a long romantic walk down the beach in the sand? Who would not want to go walk or a hike and enjoy nature? Go and stefan your dog on all four and be a dog for fifteen minutes. They will enjoy it and so will you. The point is get moving with the your better half and you will be better for it. It will definitely bring the two of you closer as well. Clean Everything Cleaning is a very efficient way to multitask. You are getting those extra calories burned while cleaning whatever you wanted clean anyways. The fun part is make a game out of the cleaning. When I wash my car I see absolutely how fast I can get my car washed and clean. When I begin to vacuum I try to do everything while balancing on one leg or the other. When I sweep my house, I locator specialist the broomstick like I am trying to break it. The point is make it fun to clean and make it a good challenge. I put my laundry basket away from the washer and take jump shots with all my clothes into the washer. This is my favorite one and I highly recommend it if you have a phytopathologist. The cabrera is that you remember why you are doing every thing. Keep in mind your own goal. I want you to remember on why you are trying to lose weight in the first place. If you focus on that goal and remember to have fun with all these easy steps and tricks to add those extra calories burned, you will get to where you want to be and have fun in the process. Losing weight is not necessarily hard work. It can be fun if you are open to the idea and willing to look a bit goofy at times. I promise you though every one of these 10 ways to increase your daily NEAT will be effective and will all add up in the end. A great book that I would recommend for anyone reading is the Slight Edge. The book s main theme is that it is the little things done daily that lead to the biggest change. http://www.BigRoad.com/10-easy -wkpp-dt-ywrslfrc-your-neat/ documented in this encounter [facility] 09-17-2023 Note HNO ID: [id number] Author: Crissy Tovar MD Service: ? Author Type: Physician Type: Progress Notes Filed: 09/17/2023 1:13 PM Note Text: Some documentation from previous visit of 06/13/23 was copied and pasted, documentation has been reviewed and edited as necessary for today's visit. Patient Summary: Vida is a 48 year old female who presents for follow-up evaluation of her obesity/weight management to treat and prevent relatedco-morbidities. In our previous visits we have discussed lifestyle intervention including a nutrition recommendations and physical activity optimization. Her last office visit was 3 months ago. Assessment/plan from last visit: -1 clean protein bar, and 90 g protein per day - lower back and sciatic pain - Physical therapy as injections not helping - phentermine -7 hrs of sleep per night but gets up to urinate multiple times per night- drinks a lot right before bed -hot flashes, but h/o DVT not Estrogen candidate -Needs repeat lipid Panel Interval History -still tracking protein. -protein shake in morning- 30g, Dinner meat 30-40g dinner, Lunch Egg Will add one more shake for lunch to continue to try to increase protein -walking daily- will try to increase resistance training- has gym in basement -goal for more weights and exercise -goal is 145lbs -everyone in house is eating healthy, does not miss old habits - got down to 149 but did taste testing over weekend Exercise: stable Stress: stable Sleep: stable Last Wt 02/15/23 : 184 lb (83.5 kg) 5% weight loss = 175 lbs, 10% weight loss = 166 lbs Weight loss since last vist: =10 lbs Weight loss since last vist: Anti-Obesity Medications >Phentermine: No uncontrolled HTN, No CVD Hx or hx of seizure disorder. No MAOI inhibitor use. No drug abuse hx. Crcl > 15. >Topiramate/zonisamide: No seizure or kidney stone hx. hx of migraines, hx of poor sleep. yes Child bearing age. >Qsymia: see above >Contrave: No contraindications. Could affect mood. No uncontrolled HTN or hx of seizure disorder. No MAOI inhibitor use. No opiate use. >Saxenda/Wegovy/Ozempic: Cost. Ins coverage? >Metformin: No contraindications or medication interactions. eGFR > 30. CrCl cannot be calculated (Patient's most recent lab result is older than the maximum 180 days allowed.). PAST MEDICAL HISTORY Diagnosis Date Dysmenorrhea Excessive or frequent menstruation Heavy periods Current Outpatient Medications Medication Sig Dispense Refill norethindrone (AYGESTIN) 5 mg tablet Take 0.5 tablets by mouth once daily. 15 tablet 11 clotrimazole-betamethasone (LOTRISONE) cream Apply 1 application to affected area twice daily. 30 g 0 methylPREDNISolone (MEDROL DOSE-PACK) 4 mg Dose-Pack TAKE DIRECTED IN PACKAGE FOR 6 DAYS ENBREL SURECLICK 50 mg/mL (1 mL) spironolactone (ALDACTONE) 50 mg tablet Take 1 tablet by mouth once daily. 30 tablet 11 L. acidophilus-L. rhamnosus 15 billion cell cap Take 1 capsule by mouth once daily. [employer]. If on antibiotic, take at least 1-2 hours before or after antibiotic. KEEP REFRIGERATED (Patient not taking: Reported on 07/19/2021 ) 30 capsule 11 clotrimazole-betamethasone (LOTRISONE) cream Apply 1 application to affected area twice daily. (Patient not taking: Reported on 07/19/2021 ) 15 g 2 Omeprazole 40 mg capsule doxycycline monohydrate (MONODOX) 50 mg capsule colestipol (COLESTID) 1 gram tablet Take 1 tablet by mouth once daily. (Patient not taking: Reported on 06/02/2020 ) 30 tablet 3 escitalopram oxalate (LEXAPRO) 5 mg tablet Take 2.5 mg by mouth once daily. fenofibrate (LOFIBRA) 134 mg capsule Take 134 mg by mouth daily with breakfast. Ibuprofen 200 mg cap Take 200 mg by mouth. 400-600 mg every 6-8 hrs prn (Patient not taking: Reported on 07/19/2021 ) Azelaic Acid 15 % gel Apply to affected area. No current facility-administered medications for this visit. SUN Denies CP, Palpitations. BP 132/76 Pulse 95 Wt 154 lb (69.9 kg) LMP 04/04/2016 SpO2 100% BMI 24.86 kg/m? Physical Exam Waist 34 now 32.25 Assessment/Plan: Vida Li is a 48 year old yo female with class 1 obesity who presented today for follow up for supervised weight lossto treat and prevent related co-morbidities. 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 [facility] 09-17-2023 Miscellaneous Notes Patient saw DM in office today. Rosina Mcintosh RN 2nd attempt made to contact patient. Left message to call office. Elena Miller RN Left message to call office. Elena Miller RN Agree with advice- is she constipated? That can be normal with phentermine. Please make sure having regular BMs - if not or if they are hard or she is straining- have her start taking stool softener and Miralax daily or BID until regular BMs. Patient calling with complaints of LLQ abdominal pain that has been intermittent for the past 1.5 weeks. Per patient pain today has been more constant. Describes pain as sharp and rates at a 5-6 out of 10. Pain increases when touching the area. She has not taken anything for the pain. Encouraged patient to try Motrin and can alternate Motrin with Tylenol along with trying heating pad. If pain becomes intolerable to go to ER for evaluation. Patient has appointment on 09/17 for weight management follow up. Elena Miller RN documented in this encounter [facility] 09-17-2023 History of Presen t illness Narrative Images from the original note were not included. Some documentation from previous visit of 06/13/23 was copied and pasted, documentation has been reviewed and edited as necessary for today's visit. Patient Summary: Vida is a 48 year old female who presents for follow-up evaluation of her obesity/weight management to treat and prevent relatedco-morbidities. In our previous visits we have discussed lifestyle intervention including a nutrition recommendations and physical activity optimization. Her last office visit was 3 months ago. Assessment/plan from last visit: -1 clean protein bar, and 90 g protein per day - lower back and sciatic pain - Physical therapy as injections not helping - phentermine -7 hrs of sleep per night but gets up to urinate multiple times per night- drinks a lot right before bed -hot flashes, but h/o DVT not Estrogen candidate -Needs repeat lipid Panel Interval History -still tracking protein. -protein shake in morning- 30g, Dinner meat 30-40g dinner, Lunch Egg Will add one more shake for lunch to continue to try to increase protein -walking daily- will try to increase resistance training- has gym in basement -goal for more weights and exercise -goal is 145lbs -everyone in house is eating healthy, does not miss old habits - got down to 149 but did taste testing over weekend Exercise: stable Stress: stable Sleep: stable Last Wt 02/15/23 : 184 lb (83.5 kg) 5% weight loss = 175 lbs, 10% weight loss = 166 lbs Weight loss since last vist: =10 lbs Weight loss since last vist: Anti-Obesity Medications >Phentermine: No uncontrolled HTN, No CVD Hx or hx of seizure disorder. No MAOI inhibitor use. No drug abuse hx. Crcl > 15. >Topiramate/zonisamide: No seizure or kidney stone hx. hx of migraines, hx of poor sleep. yes Child bearing age. >Qsymia: see above >Contrave: No contraindications. Could affect mood. No uncontrolled HTN or hx of seizure disorder. No MAOI inhibitor use. No opiate use. >Saxenda/Wegovy/Ozempic: Cost. Ins coverage? >Metformin: No contraindications or medication interactions. eGFR > 30. CrCl cannot be calculated (Patient's most recent lab result is older than the maximum 180 days allowed.). PAST MEDICAL HISTORY Diagnosis Date Dysmenorrhea Excessive or frequent menstruation Heavy periods Current Outpatient Medications Medication Sig Dispense Refill norethindrone (AYGESTIN) 5 mg tablet Take 0.5 tablets by mouth once daily. 15 tablet 11 clotrimazole-betamethasone (LOTRISONE) cream Apply 1 application to affected area twice daily. 30 g 0 methylPREDNISolone (MEDROL DOSE-PACK) 4 mg Dose-Pack TAKE DIRECTED IN PACKAGE FOR 6 DAYS ENBREL SURECLICK 50 mg/mL (1 mL) spironolactone (ALDACTONE) 50 mg tablet Take 1 tablet by mouth once daily. 30 tablet 11 L. acidophilus-L. rhamnosus 15 billion cell cap Take 1 capsule by mouth once daily. [employer]OM[employer]. If on antibiotic, take at least 1-2 hours before or after antibiotic. KEEP REFRIGERATED (Patient not taking: Reported on 07/19/2021 ) 30 capsule 11 clotrimazole-betamethasone (LOTRISONE) cream Apply 1 application to affected area twice daily. (Patient not taking: Reported on 07/19/2021 ) 15 g 2 Omeprazole 40 mg capsule doxycycline monohydrate (MONODOX) 50 mg capsule colestipol (COLESTID) 1 gram tablet Take 1 tablet by mouth once daily. (Patient not taking: Reported on 06/02/2020 ) 30 tablet 3 escitalopram oxalate (LEXAPRO) 5 mg tablet Take 2.5 mg by mouth once daily. fenofibrate (LOFIBRA) 134 mg capsule Take 134 mg by mouth daily with breakfast. Ibuprofen 200 mg cap Take 200 mg by mouth. 400-600 mg every 6-8 hrs prn (Patient not taking: Reported on 07/19/2021 ) Azelaic Acid 15 % gel Apply to affected area. No current facility-administered medications for this visit. ROS Denies CP, Palpitations. BP 132/76 Pulse 95 Wt 154 lb (69.9 kg) LMP 04/04/2016 SpO2 100% BMI 24.86 kg/m Physical Exam Waist 34 now 32.25 Assessment/Plan: Vida Li is a 48 year old yo female with class 1 obesity who presented today for follow up for supervised weight lossto treat and prevent related co-morbidities. 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) Class 1 obesity (E66.3) Overweight (Z86.39) History of obesity (Z13.21) Encounter for vitamin deficiency screening (Z13.1) Screening for diabetes mellitus (Z13.0) Screening for deficiency anemia (Z13.220) Screening cholesterol level (Z13.29) Screening for thyroid disorder I spent a total of 30 minutes on the date of the service which included preparing to see the patient, [id number] patient care, completing clinical documentation, obtaining and/or reviewing separately obtained history, performing a medically appropriate examination, counseling and educating the patient/family/caregiver, and ordering medications, tests, or procedures. Follow up in 3 months. Crissy Pisano MD documented in this encounter [facility] 08-12-2023 Miscellaneous Notes Refill request received via [facility]. Patient last seen for annual exam on 07/24/22. Has upcoming annual on 11/26/23. Elena Miller RN documented in this encounter [facility] 06-13-2023 Note HNO ID: [id number] Author: Crissy Tovar MD Service: ? Author Type: Physician Type: Progress Notes Filed: 06/13/2023 12:01 PM Note Text: Some documentation from previous visit of 04/24/23 was copied and pasted, documentation has been reviewed and edited as necessary for today's visit. Patient Summary: Vida is a 48 year old female who presents for follow-up evaluation of her obesity/weight management to treat and prevent relatedco-morbidities. In our previous visits we have discussed lifestyle intervention including a nutrition recommendations and physical activity optimization. Her last office visit was 6 wekes ago. Assessment/plan from last visit: Assessment/Plan: Vida Li is a 48 year old yo female with h/o class 1 obesity and dyslipidemia who presented today for follow up for supervised weight loss. She is doing well following her nutrition plan and taking the medication appropriately. She is taking her collagen and vitamins which were recommended at her last visit. She has noted improvement in her hair loss. She will work on increasing her physical activity as well as resistance training. The importance of this was discussed with her. We discussed a weight set point as well as her body trying to increase her weight by slowing down her metabolic rate and increasing her hunger hormones. Patient reports she recently had labs done at her primary care office and her lipid panel was still abnormal. We discussed that I would not repeat this for another 6 months to a year. Part of this could be genetic but I would wait for weight loss to continue and nutrition to still continue for improvement. Patient overall is very happy and feels much better mentally and physically. (E78.5) Dyslipidemia (primary encounter diagnosis) Comment: Plan: continue nutritious foods, increased protein, lower carb, whole foods. Will repeat in 6mo-1 yr. (E66.9) Class 1 obesity Comment: Plan: continue phentermine. Has met goal of >5% weight loss. (Z76.89) Encounter for weight management Comment: Plan: continue phentermine and nutrition. Will work on incrasing exercise and weight training (Z68.33) BMI 33.0-33.9,adult Comment: Interval History Patient is doing very well on the medication. She denies any adverse side effects. She reports that it is maintaining her ability to eat healthy and avoid snacking. She reports that she does consume approximately 90 g of protein per day has started consuming 1 protein bar per day called clean protein bar. She reports that she eats multiple servings of vegetables. She reports that her has even been eating healthy and he is lost over 25 pounds being clean. She feels so much better and has more clarity when performing daily tasks. She is still having lower back pain and sciatic pain. She will be seeing physical therapy for this as the injections are not helping. This back pain has been limiting her physical mobility and ability to perform resistance training and more intense exercising. Patient would like to remain on the medication at this time. She states that she is still getting approximately 7 hours of sleep per night which is stable she does get up multiple times for urinating but states she does drink right before going to bed. Patient offers no other concerns today. She is still continuing to track her food and her weight on a daily basis. She is on the Aygestin to avoid menstrual cycles but states hot flashes are more prominent. She does have a history of a blood clot hence not estrogen therapy. Exercise: decreased Stress: stable Sleep: stable- Weight loss since last vist: 4lbs. Starting weight was 184, now down to 155. Anti-Obesity Medications >Phentermine: No uncontrolled HTN, No CVD Hx or hx of seizure disorder. No MAOI inhibitor use. No drug abuse hx. Crcl > 15. >Topiramate/zonisamide: No seizure or kidney stone hx. hx of migraines, yes hx of poor sleep. yes Child bearing age. >Qsymia: see above >Contrave: No contraindications. Could affect mood. No uncontrolled HTN or hx of seizure disorder. No MAOI inhibitor use. No opiate use. >Saxenda/Wegovy/Ozempic: Cost. Ins coverage? >Metformin: No contraindications or medication interactions. eGFR > 30. Estimated Creatinine Clearance: 99.6 mL/min (based on SCr of 0.71 mg/dL). PAST MEDICAL HISTORY Diagnosis Date Dysmenorrhea Excessive or frequent menstruation Heavy periods Current Outpatient Medications Medication Sig Dispense Refill Phentermine HCl 37.5 mg tablet Take 1 tablet by mouth daily before breakfast for 90 days. 30 tablet 2 clotrimazole-betamethasone (LOTRISONE) cream Apply 1 application to affected area twice daily. 30 g 0 methylPREDNISolone (MEDROL DOSE-PACK) 4 mg Dose-Pack TAKE DIRECTED IN PACKAGE FOR 6 DAYS norethindrone (AYGESTIN) 5 mg tablet Take 0.5 tablets by mouth once daily. 15 tablet 11 ENBREL SURECLICK (more content not included)... [facility] 06-13-2023 History of Presen t illness Narrative Images from the original note were not included. Some documentation from previous visit of 04/24/23 was copied and pasted, documentation has been reviewed and edited as necessary for today's visit. Patient Summary: Vida is a 48 year old female who presents for follow-up evaluation of her obesity/weight management to treat and prevent relatedco-morbidities. In our previous visits we have discussed lifestyle intervention including a nutrition recommendations and physical activity optimization. Her last office visit was 6 we ago. Assessment/plan from last visit: Assessment/Plan: Vida Li is a 48 year old yo female with h/o class 1 obesity and dyslipidemia who presented today for follow up for supervised weight loss. She is doing well following her nutrition plan and taking the medication appropriately. She is taking her collagen and vitamins which were recommended at her last visit. She has noted improvement in her hair loss. She will work on increasing her physical activity as well as resistance training. The importance of this was discussed with her. We discussed a weight set point as well as her body trying to increase her weight by slowing down her metabolic rate and increasing her hunger hormones. Patient reports she recently had labs done at her primary care office and her lipid panel was still abnormal. We discussed that I would not repeat this for another 6 months to a year. Part of this could be genetic but I would wait for weight loss to continue and nutrition to still continue for improvement. Patient overall is very happy and feels much better mentally and physically. (E78.5) Dyslipidemia (primary encounter diagnosis) Comment: Plan: continue nutritious foods, increased protein, lower carb, whole foods. Will repeat in 6mo-1 yr. (E66.9) Class 1 obesity Comment: Plan: continue phentermine. Has met goal of >5% weight loss. (Z76.89) Encounter for weight management Comment: Plan: continue phentermine and nutrition. Will work on incrasing exercise and weight training (Z68.33) BMI 33.0-33.9,adult Comment: Interval History Patient is doing very well on the medication. She denies any adverse side effects. She reports that it is maintaining her ability to eat healthy and avoid snacking. She reports that she does consume approximately 90 g of protein per day has started consuming 1 protein bar per day called clean protein bar. She reports that she eats multiple servings of vegetables. She reports that her has even been eating healthy and he is lost over 25 pounds being clean. She feels so much better and has more clarity when performing daily tasks. She is still having lower back pain and sciatic pain. She will be seeing physical therapy for this as the injections are not helping. This back pain has been limiting her physical mobility and ability to perform resistance training and more intense exercising. Patient would like to remain on the medication at this time. She states that she is still getting approximately 7 hours of sleep per night which is stable she does get up multiple times for urinating but states she does drink right before going to bed. Patient offers no other concerns today. She is still continuing to track her food and her weight on a daily basis. She is on the Aygestin to avoid menstrual cycles but states hot flashes are more prominent. She does have a history of a blood clot hence not estrogen therapy. Exercise: decreased Stress: stable Sleep: stable- Weight loss since last vist: 4lbs. Starting weight was 184, now down to 155. Anti-Obesity Medications >Phentermine: No uncontrolled HTN, No CVD Hx or hx of seizure disorder. No MAOI inhibitor use. No drug abuse hx. Crcl > 15. >Topiramate/zonisamide: No seizure or kidney stone hx. hx of migraines, yes hx of poor sleep. yes Child bearing age. >Qsymia: see above >Contrave: No contraindications. Could affect mood. No uncontrolled HTN or hx of seizure disorder. No MAOI inhibitor use. No opiate use. >Saxenda/Wegovy/Ozempic: Cost. Ins coverage? >Metformin: No contraindications or medication interactions. eGFR > 30. Estimated Creatinine Clearance: 99.6 mL/min (based on SCr of 0.71 mg/dL). PAST MEDICAL HISTORY Diagnosis Date Dysmenorrhea Excessive or frequent menstruation Heavy periods Current Outpatient Medications Medication Sig Dispense Refill Phentermine HCl 37.5 mg tablet Take 1 tablet by mouth daily before breakfast for 90 days. 30 tablet 2 clotrimazole-betamethasone (LOTRISONE) cream Apply 1 application to affected area twice daily. 30 g 0 methylPREDNISolone (MEDROL DOSE-PACK) 4 mg Dose-Pack TAKE DIRECTED IN PACKAGE FOR 6 DAYS norethindrone (AYGESTIN) 5 mg tablet Take 0.5 tablets by mouth once daily. 15 tablet 11 ENBREL SURECLICK 50 mg/mL (1 mL) spironolactone (ALDACTONE) 50 mg tablet Take 1 tablet by mouth once daily. 30 tablet 11 L. acidophilus-L. rhamnosus 15 billion cell cap Take 1 capsule by mouth once daily. [employer]OM[employer]. If on antibiotic, take at least 1-2 hours before or after antibiotic. KEEP REFRIGERATED (Patient not taking: Reported on 07/19/2021 ) 30 capsule 11 clotrimazole-betamethasone (LOTRISONE) cream Apply 1 application to affected area twice daily. (Patient not taking: Reported on 07/19/2021 ) 15 g 2 Omeprazole 40 mg capsule doxycycline monohydrate (MONODOX) 50 mg capsule colestipol (COLESTID) 1 gram tablet Take 1 tablet by mouth once daily. (Patient not taking: Reported on 06/02/2020 ) 30 tablet 3 escitalopram oxalate (LEXAPRO) 5 mg tablet Take 2.5 mg by mouth once daily. fenofibrate (LOFIBRA) 134 mg capsule Take 134 mg by mouth daily with breakfast. Ibuprofen 200 mg cap Take 200 mg by mouth. 400-600 mg every 6-8 hrs prn (Patient not taking: Reported on 07/19/2021 ) Azelaic Acid 15 % gel Apply to affected area. No current facility-administered medications for this visit. ROS Denies chest pain, shortness of breath, dizziness or anxiety. Denies any palpitations. She reports that the dry mouth is improving. BP 110/78 Pulse 100 Wt 155 lb (70.3 kg) LMP 04/04/2016 SpO2 99% BMI 25.02 kg/m Physical Exam Waist circumference: 34 Assessment/Plan: Vida Li is a 48 year old yo female with class 1 obesity now overweight who presented today for follow up for supervised weight lossto treat and prevent related co-morbidities. Discussed with the patient denies fantastic on her nutrition plan. When she is able to increase resistance training that it is my biggest recommendation for her. We discussed resistance training minimum 2-3 times per week. When she is able to be more active she will incorporate this into her schedule. At this time her nutrition seems to be very adequate she is getting whole foods in her diet and functioning well. We will repeat her lipid panel in approximately 6 months. (E66.3) Overweight Comment: Plan: Phentermine HCl 37.5 mg tablet-patient understands that this is off label use of phentermine for long-term weight management however she has no adverse side effects she has done significantly well on this medication. The patient has lost over 30 pounds on this medication since starting it. . (Z86.39) History of obesity Comment: Plan: Phentermine HCl 37.5 mg tablet (E78.5) Dyslipidemia Comment: repeat labs 6mo Plan: Phentermine HCl 37.5 mg tablet Medical Decision Making: Problems: Moderate: 1+ chronic illnesses with change Risk: Moderate: Drug management and Moderate risk from testing/treatment Medical Decision Making Level: 4 - Moderate Follow up in 12 weeks. Crissy Pisano MD . documented in this encounter [facility] 04-30-2023 Miscellaneous Notes Patient notified and voiced understanding. Elena Miller RN Rx diflucan sent Prince Calix MD Pt returned call and stated that since she is going to be on vacation she does not want to mess with the monistat. Pt stated that she will just not take the Lexapro while she takes the Diflucan. Please advise. Yumi Amador LPN Left message to call office. Elena Miller RN Diflucan can interact the the lexapro she is on. I would recommend taking 7 day monistat instead. The other option would be to skip the lexapro when she takes the diflucan. Prince Calix MD Pt calling and stated that she has been on antibiotics for an ear infection and she is getting ready to leave the country on and would like an Rx for Diflucan to take with her. She will be gone until 05/13/23. Pt is reporting itching, discharge vulvar irritation. Please advise. Yumi Amador LPN documented in this encounter [facility] 04-24-2023 Instructions Crissy Dow MD - 04/24/2023 1:23 PM EDT Images from the original note were not included. Meal replacements: Meal Replacements Plant-based protein bars Meal replacements. One option that works for some people is to use meal replacements, as in the DiRECT and Look AHEAD trials.The available options in Look AHEAD included shakes, bars, and meals from a variety of companies (Glucerna, [employer], [employer], and [employer]). The calorie content was 150 to 220 calories, depending on the product. People who used meal replacements 12 times a week instead of preparing their own meals lost about 11% of their weight in the first year, whereas those who used just two per week lost about 6% of their weight. Keep in mind, though, that people in the trial who used meal replacements also tended to consume a healthier diet over all; they were more likely to have met their goals for dietary fat, fruits and vegetables, and dairy foods, and to have cut back on sweets, than those who didn t use meal replacements. Similarly, in the DiRECT trial, participants consumed special nutritionally complete shakes and soups (the Counterweight-Plus program) for the first 12 weeks.If you opt for meal-replacement drinks, bars, or frozen entrees, here are some criteria to look for: calories, 150 to 300 fat, 3 to 10 grams protein, > 20 grams sugar < 5 g Meal replacements are typically fortified with vitamins and minerals and contain some fiber. Because they are calorie controlled, the amount of added sugars is usually minimal. If you want to try this approach to boost weight loss, ask your dietitian or another member of your health care team how to incorporate the replacements into your meal planning and discuss whether you might need to reduce your doses of diabetes medications to prevent hypoglycemia (low blood sugar) as you cut calories and lose weight. It is important to find a meal-replacement product that suits your taste. If you prefer not to consume processed foods, you can make your own portion-controlled versions. Note that meal replacements don t work for everyone. While some people like meal-replacement shakes, bars, and soups and find them to be a convenient way to sustain a reduced calorie intake over time, others don t feel satisfied drinking them and often end up simply adding them to what they d normally eat--which could lead to weight gain. What s more, some people have a hard time readjusting to eating real food after they stop using meal replacements. Protein - no carbs Egg 1 large - 6g Egg white 1 large 3.6g 3 oz is approximately the size of a deck of cards and equals 21 g protein Beef, Chicken, Five Points, Pork, Nicole 1 oz 7g Fish, Tuna Fish 1 oz 7g Seafood (Crabmeat, Shrimp, Lobster) 1 oz 6g Protein shakes (read labels) Premier Protein or generic [employer] Equate, Aldi Elevate, [employer] High Performance- 30g protein & 1g carb Fairlife 30 gram protein - 30g protein & 3g carb BOOST Glucose Control Max 30g Protein Nutritional Drink - 30g protein & 6 carb Slimfast High Protein - 20g protein & 1g carb Ensure Max Protein Nutrition Shake 30g protein & 2 carb Protein AND carbs Beef/Five Points Jerky 1 oz dried 10-15g protein - check carb count, can be high if sugar added Imitation Crab Meat 1 oz - 2g protein & 4g carb Milk, skim 2% or 1% 8 oz - 8g protein & 12g carb Nepalese yogurt Full Fat Nepalese Yogurt 1 cup - 20.4g protein & 9.1g carb 2% Nepalese Yogurt 1 cup - 22.7g protein & 9.1g carb 0% (fat-free) Nepalese Yogurt - 1 cup 24g protein & 9.3g carb :ratio, KETO Friendly Dairy Snack 1 single svg - 15g protein & 2g carb :ratio Protein 1 single svg - 25g protein & 8g carb Dannon Light + Fit 1 single csvg - 12g protein & 9g carb Two Good Lowfat Nepalese Yogurt, [place], Lower Sugar - 12g protein & 2g carb [place]ikos Triple Zero Nepalese Nonfat Yogurt 1 single svg - 15g protein & 7g carb Cheese each oz Brie 5.9g protein & 0.1g carb Cheddar Cheese 7g protein & 0.4g carb Mozzarella Cheese 6.3g protein & 0.6g carb Joshua Cheese 6.7g protein & 0.7g carb Parmesan Cheese 10g protein & 0.9g carb Cream Cheese 1.7g protein & 1.2g carb Feta 4g protein & 1.2g carb Ivorian Cheese 7.6g protein & 1.5g carb Stone s Low Fat Cottage Cheese 1/2cup 12g protein & 4g carb Legumes Lentils cup 9g protein & 20g carb Gastno beans cup 7g protein & 20g carb Kidney, Black, [place], Cannellini beans cup 8g protein & 20g carb Soybeans 1/2 c 14g protein & 8.5g carb Peanut butter, natural 2 Tbsp 7-8g protein & 4g net carbs, 190 calories [place] milk, unsweetened 8 oz 1g protein & 2g carb Soy milk 8 oz 3.5g protein & 1.6g carb Tofu 1/2 cup 10g protein & 2.3g carb Nuts and Seeds per oz Pumpkin Seeds - 6.9g protein & 5g carb Almonds - 5.9g protein & 6.1g carb Brooks Seeds - 5.8g protein & 5.6g carb Pistachios - 5.8g protein & 7.8g carb Cashews - 5.1g protein & 9.2g carb Walnuts - 4.3g protein & 3.8g carb Hazelnuts - 4.2g protein & 4.7g carb [place] Nuts - 4.0g protein & 3.4g carb Pecans - 2.6g protein & 3.9g carb 15 gram carb fruit options Berries have the lowest sugar content 1/2 cup diced honeydew melon - 8 carbs 1/2 cup diced watermelon - 6 carbs One half medium grapefruit - 10.5 carbs 1 medium orange -15.5 carbs 1 medium peach -14.5 carbs 1/2 cup fresh cranberries - 6.5 carbs 1 medium plum -7.5 carbs 1/2 cup raspberries -7.5 carbs 1 medium Tammy -9 carbs 1/2 cup fresh pineapple -11 carbs 1 medium nectarine - 15 carbs 1/2 cup blueberries - 11 carbs - may actually help you lose weight 1 medium kiwi without skin - 11 carbs 1/2 cup fresh cherries -11 carbs 1 medium tangerine -12 carbs 1/2 cup sliced ángela -14 carbs 1/2 medium banana 1/2 c grapes 1/2 medium apple - 12.5 carbs 5 gram carb vegetable options 1 cup raw OR cup cooked: Asparagus Cabbage Spinach Peppers Green beans Carrots Tomato [place] Cunningham sprouts Cauliflower Lettuce Snap peas Broccoli Eggplant Zucchini Turnips Spaghetti squash 15 gram carb vegetable options cup cooked green peas cup cooked corn or hominy corn on the cob, large (5 oz) cup cooked sweet potato, plain cup cooked potato, plain 1 small potato or sweet potato 1 cup winter squash (pumpkin, acorn, butternut) 1 cup marinara or pasta sauce - check label cup tomato juice cup tomato puree Beans, Seeds, Nuts cup cooked beans (kidney, ballesteros, red, green, etc.) cup cooked lentils cup baked beans 4 tablespoons nut butter The Role of Exercise in Weight Management No one can deny the psychological and physical benefits of exercise. Regular physical exercise aids in stress reduction, blood sugar control, cholesterol reduction, and improved sleep. It s also beneficial for weight control. both aerobic and strength training is beneficial for weight control. The ACSM ([place] [employer]) advises 200-300 minutes of moderate-intensity exercise to lose weight and sustain the loss. Aerobic exercise (walking, jogging, swimming, cycling) uses glucose (from glycogen) and triglycerides (from fat in storage) for energy. Strength or resistance training helps build muscle, which is more metabolic at rest than fat tissue. Both are beneficial to weight management. According to the 2018 Physical Activity Guidelines for Americans, Americans are advised to do a minimum of 30 minutes of physical activity most days of the week. This equates to 150 minutes of moderate activity or 75 minutes of vigorous exercise per week for general health. This should include both aerobic and strength training exercises. However, without calorie restriction, this isn t enough for weight loss or weight maintenance in most people. Currently, 53 % of Americans over 18 do adequate aerobic exercise while only 23% get both aerobic and muscle-strengthening activity. Most [place] adults are still too sedentary. A sedentary lifestyle is associated with cardiovascular disease, type 2 diabetes, and certain types of cancer including endometrial, colon, and lung cancer. Which types of exercise aid in weight control? How much should I do? In addition to caloric restriction, both aerobic and strength training is beneficial for weight control. The ACSM ([place] [employer]) advises 200-300 minutes of moderate-intensity exercise to lose weight and sustain the loss.Moderate-intensity exercises include brisk walking, jogging, using a rowing machine, or doing a 50-60 minute dance class. To enrollment services dean the level of intensity you should aim for, think of it this way: a person should be able to carry a conversation but not be able to sing. HIIT (high-intensity interval training) is one method of exercise that may be beneficial to those who are trying to lose weight and are short on time. One way to do HIIT involves doing high-intensity exercise (such as sprinting) for 60 seconds followed by 60 seconds of low-intensity exercise (walking) or rest. Exercises are repeated 8 times with rest for a few minutes, then repeated until 30 minutes of exercise is completed. A meta-analysis of 39 studies with 671 participants showed that HIIT reduced total, abdominal, and visceral fat mass in both men and women aged 38.8 +/- 14.4. Running was more effective than cycling in lowering total and visceral fat mass while low-intensity exercise (like walking) also resulted in abdominal and visceral fat loss. The latter took more time. HIIT training is typically done a few days a week. Individuals are advised to choose less intense exercises in between HIIT training days. More muscle matters! One of the biggest reasons (no pun intended) that adults gain weight over time is due to muscle loss. A comparison study of various methods of exercise was performed with older subjects with obesity. Subjects got randomly assigned to a weight control program along with one of four programs: aerobic training, resistance training, combined aerobic and resistance training, or a control group (no treatment). The initial outcome was the change in Physical Performance Test Scores from the start to 6 months after the study began, while secondary outcomes included changes in body composition, bone mineral density, and physical function. There were 141 total subjects that finished the study. Physical Performance Test score was higher in the combination group than in the aerobic and resistance groups. Bodyweight decreased in all exercise groups (9%) but not in the control group. Lean mass and bone density were maintained the most in the combination and resistance groups. Strength also increased in the resistance training and combination training groups. As muscle is more metabolic than fat, maintaining muscle mass is important to long-term weight control. It s important for individuals who have been sedentary to check with their doctors before embarking on a new exercise program. While HIIT training may be appropriate for younger individuals and/or those without comorbidities like cardiovascular disease, it s important to find an exercise that s enjoyable. Physical activities could include: Multiple bouts of moderately paced walking a few times per day. Use of an elliptical or rowing machine or a water aerobics class A walking video to use at home Playing tennis or pickleball Trying a regular or stationary bike or a spin class Joining a kickboxing or Marian class at a gym or [facility] Resistance training may include: Use of stretch bands Multiple reps of small hand weights Use of nautilus machines A pilates class (in person or at home) 10 Easy Ways to Increase Your NEAT (Non-exercise activity thermogenesis) One of the best ways to lose those those extra pounds for good and keep it off is to make daily habit changes that can help burn those extra calories during activities you would normally do regardless. What I am talking about is increasing your NEAT. What is NEAT? It is Non-exercise activity thermogenesis. It is the activity that you are able to add into your daily routine outside of the gym that can help you in the long run. It can help you lose those ten pounds not this month, but over the next 12 months. In the grand scheme of things, would you not want to be ten pounds furnace brazer come next year? Now it is time for me to show you how. For a moment, imagine for me that you we are back before you started going to the gym. Imagine you were slowly gaining about a pound every two to three months. After 3 years of not exercising or working out you realized you are 10 pound heavier. All your clothes feel a little tighter and you just do not feel good in your own skin like how you used to. One day climbing up a flight of stairs you become way too easily winded, and not just that, but your knees are hurting. For some people, this is all too real. That was the wake up call to go to the gym to start exercising. Yet, why do you exercise when you gain weight? The reason is because you were taught that when you begin exercising, you begin to lose the weight you previously put on. The reason for the weight loss is because you have started to burn more calories compared to what you have consumed through your diet. When it comes to fat loss, you want to have a calorie deficit of about 500 calories a day so that about after a week you will be 3500 calories short. Your body is naturally programmed then to pull those calories of energy out of your stored fat. One pound of fat is roughly equal to 3500 calories. So when you burn those calories at the gym and create that calorie deficit you are burning through that stored fat. Another way you can create a calorie deficit is by changing up your diet. If you reduce the calories you eat by a small margin to create a 500 calories deficit then the same result will happen of burning a pound of stored body fat for every 3500 calories you did not eat that you may normally would have. Now finally for NEAT to come into play. We are going through your normal daily life but now you add some extra Non-exercise activity thermogenesis. You add some daily habits that helped you burn extra calories throughout your day. These extra calories that you burn add to your total daily energy expenditure which means that instead of those calories you were eating becoming stored as fat, you burned those calories, without even stepping into a gym. That is the power of NEAT. Sadly, most individuals do not know of the power of NEAT so most people do gain those ten pounds. Still, NEAT can help you lose that weight gained. Let s say now that you know the power of NEAT you want to incorporate it as part of your daily life and habits with that a positive change of dietary habits and a new exercise program. So let us say you are at the gym going three times a week and hike once a week burning a total of 2500 calories at the end of the week. With that you are improving your eating habits and diet and that has created an additional 2000 calories deficit at the end of the week. So so far a nice sum total of 4500 calories burned in just a single week. Now with a little magical NEAT you add just 100 calories a day of extra activity into your life and therefore an extra 700 calories that you burned in one week! So now you have 5200 calories a week burned between your diet, exercise, and nonexercise activity. Now over a course of a month you have 28,000 calories burned. Over three months time you have 84,000 calories. If you were to burn and have a calories deficit of 84,000 calories that is a sum total of 24 pounds lost! Now if you did not include NEAT into that math you would have lost 21.6 pounds. Still a great amount lost, but after a year you are missing out on those extra 10 pounds you could have lost by barely making a change. Here are 10 examples of NEAT to help you lose weight: WALKING: Walking is an easy activity nearly every one of us can accomplish. All we have to do is increase the number of steps we walk everyday and over time the extra energy used comes from our stores fat. It is also fairly simple to increase the number of steps you walk throughout the day. You can park your car down the street from your house. You can park at the farthest spot when shopping. You can go for an easy morning walk while you sip your morning cup of Cricket. All the steps will add up over time. COOKING: Most of us cook at least one meal throughout the day. During this time you can add in some simple movements. When I cook, I like to squat deep when I grab a tracy out of the cabinet. When I m reaching for the spices on the shelf I throw in a push-up. When I m waiting for the vegetables to steam I simply bounce or fidget in place while reading or going on social media. The point is while I m coming I am not standing still. For those times I m eating out, I will fidget in line by bouncing on one foot for a bit then switch it up. Sometimes I ll squat while waiting for my coffee. Again, the point is I keep moving. TELEVISION: I watch TV. I would even be lying to you if I said I hardly watch TV. I would be lying to you if I said I sit or lay down and watch TV. When watching my programs or sports on TV I am stretching. I lay down and stretch out my muscles. I ll use the couch as a steady surface to stretch my back out, my shoulders out, my legs out. I never just sit down and watch TV. I stretch and stay active and honestly it is one of the best habits I have created. It has helped me stay loose and I no longer feel guilty about watching TV. It is a win win. Morning Routine: Everyone has a morning routine that they go through during their work week. This is an easy time to add some extra movement to your day. The moment you get out of bed, do some push-ups. You do not even have to define a specific amount. Just drop down and give me however many you feel like. When you go to start the coffee pot, I want you to give me some jumping jacks. The moment you go and brush your teeth, give me some squats before you start or maybe even while you are brushing your teeth if you feel like really multitasking. Going out to get the morning paper, I want a burpee when you get to that paper. Just add in some simple movements or tasks that are associated with every stop along your morning routine. Evening Routine Same concept of your morning routine except I want you to do more stretching and more of a yoga pose idea with it. When you are going around the house shutting off the lights, take a deep breath and reach up and then down towards your toes. Locking the doors, I want a nice deep lunge stretch to help loosen up those hip flexors. Do simple more relaxing movements. Not only will these little movements help burn those extra calories, they are going to help mentally and physically relax you before you sleep. Your Car Most people are getting in and out of their car at least once a day. Every time you are getting into your car, add some movement. You can do jumping jacks, lunges, squats, some hip hinges, do something. I have known people where they will do as many reps of squats for each minute they expect to be driving. If they were going on a long road trip, they would break up those squats during the rest breaks. This is a very simple way to add in those extra calories burned. Personally I like to try getting into and out of my car without using my hands. Some days I will try to mix up only using one foot or the other with no hands trying to carefully slid out of the car. Ditch the Car: If you do not have a crazy commute to work or when running errands or even going out to eat ditch the car for the evening. Many people forget that they can walk places and it will in fact not take long at all. The walk will make you feel good, burn calories, and will help out our environment. Personally I try to ride my bike to work as often as I can. I know others who go and walk to the grocery store when buying only a handful of items. I know of others who take an uber to work in the morning and walk the distance home. The point is at least once a week ditch the car and ride your bike, walk, skate, or even run somewhere you need to go. Work Do not just sit there. If you have a job where you end up sitting down for an extended period of time you are doing harm to yourself. Luckily you can save yourself. Every 5 minutes you sound get up and stand up and squat down and then sit right back down. Anytime you have a break in your workflow, do a little twist in the chair stretching your back out. If you are stuck there reading your emails, add some arm circles in. You won t even have to get out of your chair for those arm circles. All the little movements add up. So please, do it for yourself and do not just sit there. You & Your Significant Other You don t have to be to have a significant other. Exercising with a bestie, a girlfriend or boyfriend or even a pet is a great way to spend time and feel great. Who does not like a long romantic walk down the beach in the sand? Who would not want to go walk or a hike and enjoy nature? Go and stefan your dog on all four and be a dog for fifteen minutes. They will enjoy it and so will you. The point is get moving with the your better half and you will be better for it. It will definitely bring the two of you closer as well. Clean Everything Cleaning is a very efficient way to multitask. You are getting those extra calories burned while cleaning whatever you wanted clean anyways. The fun part is make a game out of the cleaning. When I wash my car I see absolutely how fast I can get my car washed and clean. When I begin to vacuum I try to do everything while balancing on one leg or the other. When I sweep my house, I locator specialist the broomstick like I am trying to break it. The point is make it fun to clean and make it a good challenge. I put my laundry basket away from the washer and take jump shots with all my clothes into the washer. This is my favorite one and I highly recommend it if you have a phytopathologist. The cabrera is that you remember why you are doing every thing. Keep in mind your own goal. I want you to remember on why you are trying to lose weight in the first place. If you focus on that goal and remember to have fun with all these easy steps and tricks to add those extra calories burned, you will get to where you want to be and have fun in the process. Losing weight is not necessarily hard work. It can be fun if you are open to the idea and willing to look a bit goofy at times. I promise you though every one of these 10 ways to increase your daily NEAT will be effective and will all add up in the end. A great book that I would recommend for anyone reading is the Slight Edge. The book s main theme is that it is the little things done daily that lead to the biggest change. http://[email or web address].Azzure [email or web address]-easy -yify-lw-laaznxzi-your-neat/ Why People Diet, Lose Weight and Gain It All Back Plus 4 ways to break the cycle + maintain your weight loss You -- and your diet -- have been firing on all cylinders. The weight is melting off, and you re feeling your best. But then there is that seemingly inevitable backslide, with pound after pound creeping back on despite your best efforts. It s the ultimate Catch-22. But before you beat yourself up, honey producer and obesity specialist Adelso Hernandez MD, has some welcome news: It s most likely not your fault. Your body is fighting to keep your weight as it was before the dieting, he says. But take heart -- it s possible to win the ojeda. What weight set point has to do with it Experts think as many as 80 to 95% of dieters gain back the weight they ve worked so hard to lose. Why? (WHY?!?) Dr. Hernandez says the culprit is your weight set point : the weight your body is programmed to be. Your weight set point is a combination of several factors, including your: Genetics. Hormones. Behavior. Environment. Weight set point and metabolism play for the same team: Your metabolism freed energy at a rate that will maintain your weight set point, even if that point is heavier than is healthy. Most of the time, weight gain is gradual, and that can raise your set point gradually, too, notes Dr. Hernandez. But certain lifestyle changes can lower it. The perils of yo-yo dieting Beware of the quick-fix, Dr. Hernandez warns. A fad diet won t change your set point. It s just restricting calories, he says. Your body is very efficient. You can successfully lose weight for a while, but at some point, your body simply adjusts to need fewer calories to function. Which means weight loss will eventually stop, unless you start eating even less than your diet calls for. (You can see where this is going.) Your body is also a survivor. As soon as calories drop, it starts doing everything in its power to prevent starvation, including: Ups the hunger hormone: Levels of the satiety hormone leptin (which controls how full you feel) decrease. Meanwhile, levels of the hunger hormone ghrelin increase. You feel hungrier, even after eating a normal meal. Makes you think, Oooh that looks good : Eating fewer calories alters how you think about and perceive food. Research shows dieters become hyper-focused on food and that it even smells and tastes better to them. These effects stick around for the long-term. Remember the television show The Biggest Loser? Contestants still felt the effects of their calorie deprivation six years later, making it harder to keep the weight off. Research tells us that yo-yo dieting can negatively affect your metabolism, Dr. Hernandez says. It doesn t matter the diet: low-carb, low-fat, ketogenic, whatever. We see rebound weight gain almost every time. How to lose weight without gaining it back To maintain weight loss for good, Dr. Hernandez advises focusing on these four areas: Diet. How can you create a healthy, long-term, [id number] diet? Learn what s healthy -- and what s not. (A clerk rating or dietitian can help.) Practice portion control, even when eating healthy foods. Avoid empty calories, but treat yourself once in a while. Don t diet. Instead, focus on forming healthy habits for life. Exercise. Be an equal opportunity medical office coordinator: Do both aerobic exercise (three to five times a week) and resistance training (two to three times nonconsecutively each week). Shoot for at least 25 to 35 minutes on most days. Exercise works best for staving off weight gain (not jumpstarting weight loss), so recognize that binging on exercise can be just as bad as binging on food. Exercise can make people super hungry, while it makes others tired and inactive, which can negate the activity they did, Dr. Hernandez explains. But it s also important to remember the cardiovascular benefits of exercise, independent of weight loss. Exercise is always good and important, he says. Stress. Stress not only causes some people to eat more, but it also raises levels of the stress hormone cortisol. If you have more cortisol, you end up with higher insulin and lower blood sugar levels, Dr. Hernandez says. (Cue the cravings.) To cope, put down the fork and try meditating or talking to a trusted friend. Sleep. Not getting enough sleep raises cortisol levels, too. It also affects decision-making (read: your ability to stick to healthy habits). Seven to nine hours every night is the magic number you need to help you manage stress. It also helps your body work with you -- and not against you -- when it comes to weight loss. [email or web address]-[email or web address]-back/ Why People Diet, Lose Weight and Gain It All Back - [facility] documented in this encounter [facility] 04-24-2023 Note HNO ID: [id number] Author: Crissy Dow MD Service: ? Author Type: Physician Type: Progress Notes Filed: 04/24/2023 1:24 PM Note Text: some documentation from previous visit of 03/19/23 was copied and pasted, documentation has been reviewed and edited as necessary for today's visit. Patient Summary: is 48 year old female who presents for follow-up evaluation of her obesity/weight management to treat and prevent co-morbidities . In our previous visits we have discussed lifestyle intervention including a nutrition recommendations and physical activity optimization. Vida Li is here today for follow up evaluation for obesity. Her last office visit was 6 weeks ago. Assessement/plan from last visit: Assessment/Plan: Vida Li is a 48 year old yo female with class with h/o obesity now overweight with dyslipidemia who presented today for follow up for supervised weight loss. She has responded well to phentermine and the diet and lifestyle plan discussed last visit with a 7 lb weight loss this month. Pt working on increasing protein in her diet. Not eating much carbs will keep limited to under 100grams. Reports losing some hair recently- recommend collagen- and vitamins. Discussed IF- books were given last time and she ordered Interval History She reports is doing very well. She reports that the medication is still helping to control her cravings. She states she still gets hungry at times but overall is doing very well and is happy with her progress. Patient states she is using protein bars to make sure that she is achieving her protein goal during the day. She is monitoring her carbohydrate intake. She is eating plenty of vegetables throughout the day. She is leaving for vacation this week and has planned ahead by and protein snacks. She reports that her exercise is not improved this last month and that is what she is going to try and work on. Back pain seems to be improving. She is getting approximately 7 hours of sleep per night she does feel that it is more restful. Exercise: decreased Stress: stable Sleep: stable Weight loss since last vist: 8lbs. Anti-Obesity Medications >Phentermine: No uncontrolled HTN, No CVD Hx or hx of seizure disorder. No MAOI inhibitor use. No drug abuse hx. Crcl > 15. >Topiramate/zonisamide: No seizure or kidney stone hx. hx of migraines, yes hx of poor sleep. no Child bearing age. >Qsymia: see above >Contrave: No contraindications. Could affect mood. No uncontrolled HTN or hx of seizure disorder. No MAOI inhibitor use. No opiate use. >Saxenda/Wegovy/Ozempic: Cost. Ins coverage? >Metformin: No contraindications or medication interactions. eGFR > 30. Estimated Creatinine Clearance: 101.9 mL/min (based on SCr of 0.71 mg/dL). PAST MEDICAL HISTORY Diagnosis Date Dysmenorrhea Excessive or frequent menstruation Heavy periods Current Outpatient Medications Medication Sig Dispense Refill Phentermine HCl 37.5 mg tablet Take 1 tablet by mouth daily before breakfast for 90 days. 30 tablet 2 clotrimazole-betamethasone (LOTRISONE) cream Apply 1 application to affected area twice daily. 30 g 0 methylPREDNISolone (MEDROL DOSE-PACK) 4 mg Dose-Pack TAKE DIRECTED IN PACKAGE FOR 6 DAYS norethindrone (AYGESTIN) 5 mg tablet Take 0.5 tablets by mouth once daily. 15 tablet 11 ENBREL SURECLICK 50 mg/mL (1 mL) spironolactone (ALDACTONE) 50 mg tablet Take 1 tablet by mouth once daily. 30 tablet 11 L. acidophilus-L. rhamnosus 15 billion cell cap Take 1 capsule by mouth once daily. FLORAJEN WOMEN. If on antibiotic, take at least 1-2 hours before or after antibiotic. KEEP REFRIGERATED (Patient not taking: Reported on 07/19/2021 ) 30 capsule 11 clotrimazole-betamethasone (LOTRISONE) cream Apply 1 application to affected area twice daily. (Patient not taking: Reported on 07/19/2021 ) 15 g 2 Omeprazole 40 mg capsule doxycycline monohydrate (MONODOX) 50 mg capsule colestipol (COLESTID) 1 gram tablet Take 1 tablet by mouth once daily. (Patient not taking: Reported on 06/02/2020 ) 30 tablet 3 escitalopram oxalate (LEXAPRO) 5 mg tablet Take 2.5 mg by mouth once daily. fenofibrate (LOFIBRA) 134 mg capsule Take 134 mg by mouth daily with breakfast. Ibuprofen 200 mg cap Take 200 mg by mouth. 400-600 mg every 6-8 hrs prn (Patient not taking: Reported on 07/19/2021 ) Azelaic Acid 15 % gel Apply to affected area. No current facility-administered medications for this visit. ROS She denies any chest pain, shortness of breath, dizziness. No palpitations. Denies any dry mouth. BP 118/78 Pulse 102 Wt 159 lb (72.1 kg) LMP 04/04/2016 SpO2 100% BMI 25.66 kg/m? Physical Exam Gen; female in NAD Assessment/Plan: Vida Li is a 48 year old yo female with h/o class 1 obesity and dyslipidemia who presented today for follow up for supervised weight loss. She is doing well following her nutrit (more content not included)... [facility] 04-24-2023 History of Presen t illness Narrative Images from the original note were not included. some documentation from previous visit of 03/19/23 was copied and pasted, documentation has been reviewed and edited as necessary for today's visit. Patient Summary: is 48 year old female who presents for follow-up evaluation of her obesity/weight management to treat and prevent co-morbidities . In our previous visits we have discussed lifestyle intervention including a nutrition recommendations and physical activity optimization. Vida Li is here today for follow up evaluation for obesity. Her last office visit was 6 weeks ago. Assessement/plan from last visit: Assessment/Plan: Vida Li is a 48 year old yo female with class with h/o obesity now overweight with dyslipidemia who presented today for follow up for supervised weight loss. She has responded well to phentermine and the diet and lifestyle plan discussed last visit with a 7 lb weight loss this month. Pt working on increasing protein in her diet. Not eating much carbs will keep limited to under 100grams. Reports losing some hair recently- recommend collagen- and vitamins. Discussed IF- books were given last time and she ordered Interval History She reports is doing very well. She reports that the medication is still helping to control her cravings. She states she still gets hungry at times but overall is doing very well and is happy with her progress. Patient states she is using protein bars to make sure that she is achieving her protein goal during the day. She is monitoring her carbohydrate intake. She is eating plenty of vegetables throughout the day. She is leaving for vacation this week and has planned ahead by and protein snacks. She reports that her exercise is not improved this last month and that is what she is going to try and work on. Back pain seems to be improving. She is getting approximately 7 hours of sleep per night she does feel that it is more restful. Exercise: decreased Stress: stable Sleep: stable Weight loss since last vist: 8lbs. Anti-Obesity Medications >Phentermine: No uncontrolled HTN, No CVD Hx or hx of seizure disorder. No MAOI inhibitor use. No drug abuse hx. Crcl > 15. >Topiramate/zonisamide: No seizure or kidney stone hx. hx of migraines, yes hx of poor sleep. no Child bearing age. >Qsymia: see above >Contrave: No contraindications. Could affect mood. No uncontrolled HTN or hx of seizure disorder. No MAOI inhibitor use. No opiate use. >Saxenda/Wegovy/Ozempic: Cost. Ins coverage? >Metformin: No contraindications or medication interactions. eGFR > 30. Estimated Creatinine Clearance: 101.9 mL/min (based on SCr of 0.71 mg/dL). PAST MEDICAL HISTORY Diagnosis Date Dysmenorrhea Excessive or frequent menstruation Heavy periods Current Outpatient Medications Medication Sig Dispense Refill Phentermine HCl 37.5 mg tablet Take 1 tablet by mouth daily before breakfast for 90 days. 30 tablet 2 clotrimazole-betamethasone (LOTRISONE) cream Apply 1 application to affected area twice daily. 30 g 0 methylPREDNISolone (MEDROL DOSE-PACK) 4 mg Dose-Pack TAKE DIRECTED IN PACKAGE FOR 6 DAYS norethindrone (AYGESTIN) 5 mg tablet Take 0.5 tablets by mouth once daily. 15 tablet 11 ENBREL SURECLICK 50 mg/mL (1 mL) spironolactone (ALDACTONE) 50 mg tablet Take 1 tablet by mouth once daily. 30 tablet 11 L. acidophilus-L. rhamnosus 15 billion cell cap Take 1 capsule by mouth once daily. FLORAJEN WOMEN. If on antibiotic, take at least 1-2 hours before or after antibiotic. KEEP REFRIGERATED (Patient not taking: Reported on 07/19/2021 ) 30 capsule 11 clotrimazole-betamethasone (LOTRISONE) cream Apply 1 application to affected area twice daily. (Patient not taking: Reported on 07/19/2021 ) 15 g 2 Omeprazole 40 mg capsule doxycycline monohydrate (MONODOX) 50 mg capsule colestipol (COLESTID) 1 gram tablet Take 1 tablet by mouth once daily. (Patient not taking: Reported on 06/02/2020 ) 30 tablet 3 escitalopram oxalate (LEXAPRO) 5 mg tablet Take 2.5 mg by mouth once daily. fenofibrate (LOFIBRA) 134 mg capsule Take 134 mg by mouth daily with breakfast. Ibuprofen 200 mg cap Take 200 mg by mouth. 400-600 mg every 6-8 hrs prn (Patient not taking: Reported on 07/19/2021 ) Azelaic Acid 15 % gel Apply to affected area. No current facility-administered medications for this visit. ROS She denies any chest pain, shortness of breath, dizziness. No palpitations. Denies any dry mouth. BP 118/78 Pulse 102 Wt 159 lb (72.1 kg) LMP 04/04/2016 SpO2 100% BMI 25.66 kg/m Physical Exam Gen; female in NAD Assessment/Plan: Vida Li is a 48 year old yo female with h/o class 1 obesity and dyslipidemia who presented today for follow up for supervised weight loss. She is doing well following her nutrition plan and taking the medication appropriately. She is taking her collagen and vitamins which were recommended at her last visit. She has noted improvement in her hair loss. She will work on increasing her physical activity as well as resistance training. The importance of this was discussed with her. We discussed a weight set point as well as her body trying to increase her weight by slowing down her metabolic rate and increasing her hunger hormones. Patient reports she recently had labs done at her primary care office and her lipid panel was still abnormal. We discussed that I would not repeat this for another 6 months to a year. Part of this could be genetic but I would wait for weight loss to continue and nutrition to still continue for improvement. Patient overall is very happy and feels much better mentally and physically. (E78.5) Dyslipidemia (primary encounter diagnosis) Comment: Plan: continue nutritious foods, increased protein, lower carb, whole foods. Will repeat in 6mo-1 yr. (E66.9) Class 1 obesity Comment: Plan: continue phentermine. Has met goal of >5% weight loss. (Z76.89) Encounter for weight management Comment: Plan: continue phentermine and nutrition. Will work on incrasing exercise and weight training (Z68.33) BMI 33.0-33.9,adult Comment: I spent a total of 25 minutes on the date of the service which included preparing to see the patient, [id number] patient care, completing clinical documentation, obtaining and/or reviewing separately obtained history, performing a medically appropriate examination, and counseling and educating the patient/family/caregiver. Follow up in 6-8 weeks Crissy Pisano MD documented in this encounter [facility] 03-26-2023 Note HNO ID: [id number] Author: Maty Garay RDMS Service: ? Author Type: Powder Coater Type: Progress Notes Filed: 03/26/2023 11:04 AM Note Text: Radiology Service Progress Note PATIENT NAME: Vida Li DATE OF SERVICE: March 26, 2023 TIME: 11:04 AM PATIENT IDENTITY VERIFICATION COMPLETED USING TWO (2) IDENTIFIERS: Name and Date of confirmed by patient verbally. FALL SCREENING: Has the patient had 2 falls in the last year or 1 fall with injury or currently using an Ambulatory Assistive Device (Walker, Cane, Wheelchair, Crutches, etc.)? No PATIENT GENDER DATA: Female. status: : No status: NO. PATIENT RELEVANT IMPLANT DATA REVIEWED: Not Applicable RADIOLOGY DEPARTMENT: Ultrasound PERIPHERAL IV DATA: Not applicable SIGNED BY: Maty Garay RDMS RVT March 26, 2023 11:04 AM [facility] 03-19-2023 Note HNO ID: [id number] Author: Crissy Dow MD Service: ? Author Type: Physician Type: Progress Notes Filed: 03/19/2023 12:18 PM Note Text: WEIGHT MANAGEMENT FollowUp Note Patient Summary: is 48 year old who presents for follow-up evaluation of her obesity and related complications Vida Li is here today for follow up evaluation for phentermine. her last office visit was 1 month ago with me. She feels the medication is helping to control cravings. Pt reports has no cravings. Is able to eat healthy and actually enjoy it. Patient reports she is enjoying how she is feeling people are starting to recognize her weight loss and it feels good. Patient states that she has started to incorporate protein shakes which is helping. Patient states she is using clean protein bars and Premier protein shakes. Patient reports for dinner she has a meat and a veggie. She has incorporated snacking on nuts during the day. Still complaining of left sciatic pain from a bulging disc that happened in February. Her activity level has decreased with the pain she has tried injections with no relief. MRI was done at [facility]. Weight trend: Weight loss since last vist: = 7lbs Anti Obesity Medications >Phentermine: No uncontrolled HTN or hx of seizure disorder. No MAOI inhibitor use. No drug abuse hx. Crcl > 15. No cardiovascular disease hx. PAST MEDICAL HISTORY Diagnosis Date Dysmenorrhea Excessive or frequent menstruation Heavy periods Current Outpatient Medications Medication Sig Dispense Refill clotrimazole-betamethasone (LOTRISONE) cream Apply 1 application to affected area twice daily. 30 g 0 methylPREDNISolone (MEDROL DOSE-PACK) 4 mg Dose-Pack TAKE DIRECTED IN PACKAGE FOR 6 DAYS norethindrone (AYGESTIN) 5 mg tablet Take 0.5 tablets by mouth once daily. 15 tablet 11 ENBREL SURECLICK 50 mg/mL (1 mL) spironolactone (ALDACTONE) 50 mg tablet Take 1 tablet by mouth once daily. 30 tablet 11 L. acidophilus-L. rhamnosus 15 billion cell cap Take 1 capsule by mouth once daily. FLORAJEN WOMEN. If on antibiotic, take at least 1-2 hours before or after antibiotic. KEEP REFRIGERATED (Patient not taking: Reported on 07/19/2021 ) 30 capsule 11 clotrimazole-betamethasone (LOTRISONE) cream Apply 1 application to affected area twice daily. (Patient not taking: Reported on 07/19/2021 ) 15 g 2 Omeprazole 40 mg capsule doxycycline monohydrate (MONODOX) 50 mg capsule colestipol (COLESTID) 1 gram tablet Take 1 tablet by mouth once daily. (Patient not taking: Reported on 06/02/2020 ) 30 tablet 3 escitalopram oxalate (LEXAPRO) 5 mg tablet Take 2.5 mg by mouth once daily. fenofibrate (LOFIBRA) 134 mg capsule Take 134 mg by mouth daily with breakfast. Ibuprofen 200 mg cap Take 200 mg by mouth. 400-600 mg every 6-8 hrs prn (Patient not taking: Reported on 07/19/2021 ) Azelaic Acid 15 % gel Apply to affected area. No current facility-administered medications for this visit. ROS Denies chest pain, shortness of breath. No palpitations. Has dry mouth. Some constipation but is very tolerable and not concerning. Exercise: decreased Stress: stable Sleep: stable Physical Exam BP 130/82 Pulse 84 Wt 167 lb (75.8 kg) LMP 04/04/2016 SpO2 95% BMI 26.95 kg/m? Gen: female in NAD Assessment/Plan: Vida Li is a 48 year old yo female with class with h/o obesity now overweight with dyslipidemia who presented today for follow up for supervised weight loss. She has responded well to phentermine and the diet and lifestyle plan discussed last visit with a 7 lb weight loss this month. Pt working on increasing protein in her diet. Not eating much carbs will keep limited to under 100grams. Reports losing some hair recently- recommend collagen- and vitamins. Discussed IF- books were given last time and she ordered I spent a total of 30 minutes on the date of the service which included preparing to see the patient, [id number] patient care, completing clinical documentation, obtaining and/or reviewing separately obtained history, performing a medically appropriate examination, and counseling and educating the patient/family/caregiver. Follow up in 4 weeks weight mgmt Crissy Pisano MD [facility] 03-04-2023 Miscellaneous Notes See pt's mychart refill request and further advise. Yumi Amador LPN documented in this encounter [facility] 02-15-2023 Note HNO ID: [id number] Author: Crissy Dow MD Service: ? Author Type: Physician Type: Progress Notes Filed: 02/15/2023 11:12 AM Note Text: WEIGHT MANAGEMENT FollowUp Note Patient Summary: is 48 year old who presents for follow-up evaluation of her obesity and related complications Vida Li is here today for follow up evaluation for phentermine. her last office visit was 1 month ago with me. She feels the medication is helping to control cravings. Last Wt 02/15/23 : 184 lb (83.5 kg) 5% weight loss = 175 lbs, 10% weight loss = 166 lbs Weight loss since last vist: =10 lbs Anti Obesity Medications >Phentermine: No uncontrolled HTN or hx of seizure disorder. No MAOI inhibitor use. No drug abuse hx. Crcl > 15. No cardiovascular disease hx. >Topiramate/zonisamide: No seizure hx. no kidney stone hx. Could help with sleep. Hx of migraines/CAMPA's. Contraception continuous aygestin PAST MEDICAL HISTORY Diagnosis Date Dysmenorrhea Excessive or frequent menstruation Heavy periods Current Outpatient Medications Medication Sig Dispense Refill methylPREDNISolone (MEDROL DOSE-PACK) 4 mg Dose-Pack TAKE DIRECTED IN PACKAGE FOR 6 DAYS norethindrone (AYGESTIN) 5 mg tablet Take 0.5 tablets by mouth once daily. 15 tablet 11 ENBREL SURECLICK 50 mg/mL (1 mL) spironolactone (ALDACTONE) 50 mg tablet Take 1 tablet by mouth once daily. 30 tablet 11 clotrimazole-betamethasone (LOTRISONE) cream Apply 1 application to affected area twice daily. 30 g 0 L. acidophilus-L. rhamnosus 15 billion cell cap Take 1 capsule by mouth once daily. FLORAJEN WOMEN. If on antibiotic, take at least 1-2 hours before or after antibiotic. KEEP REFRIGERATED (Patient not taking: Reported on 07/19/2021 ) 30 capsule 11 clotrimazole-betamethasone (LOTRISONE) cream Apply 1 application to affected area twice daily. (Patient not taking: Reported on 07/19/2021 ) 15 g 2 Omeprazole 40 mg capsule doxycycline monohydrate (MONODOX) 50 mg capsule colestipol (COLESTID) 1 gram tablet Take 1 tablet by mouth once daily. (Patient not taking: Reported on 06/02/2020 ) 30 tablet 3 escitalopram oxalate (LEXAPRO) 5 mg tablet Take 2.5 mg by mouth once daily. fenofibrate (LOFIBRA) 134 mg capsule Take 134 mg by mouth daily with breakfast. Ibuprofen 200 mg cap Take 200 mg by mouth. 400-600 mg every 6-8 hrs prn (Patient not taking: Reported on 07/19/2021 ) Azelaic Acid 15 % gel Apply to affected area. No current facility-administered medications for this visit. ROS Negative for CP, sob, dizziness. Denies Palpitations. Exercise: decreased (back injury) Stress: stable Sleep: stable Physical Exam BP 116/72 Pulse 88 Wt 174 lb (78.9 kg) LMP 04/04/2016 SpO2 97% BMI 28.08 kg/m? Assessment/Plan: Vida Li is a 48 year old yo female with class 1 obesity who presented today for follow up for supervised weight loss. She has responded well to phentermine and the diet and lifestyle plan discussed last visit with a 10 lb weight loss this month. Pt was counseled and understands the [place] laws with phentermine. We will continue to monitor patients BP, Pulse in office visits but encourage her monitor at home. When she transitions to virtual visits she will need to monitor and bring those readings to her visits. Pt must lose >5% bodyweight in 3 months of starting Phentermine to continue with medication use. Pt Understands she must fill her rx within 7 days or will need to be seen in the office. Today we discussed protein intake- goal of 90grams daily- 30 with each meal. We reviewed continued tracking of food and weight daily. Lower carb choices- pt loves to bake but has stopped. Pt is very motiveated for healthy lifestyle to continue. Pt knows to check AVS for information regarding [id number] and tracking. I spent a total of 30 minutes on the date of the service which included preparing to see the patient, [id number] patient care, completing clinical documentation, obtaining and/or reviewing separately obtained history, performing a medically appropriate examination, and counseling and educating the patient/family/caregiver. Follow up in 4 weeks for 2nd phentermine Rx Crissy Pisano MD [facility] 02-15-2023 Instructions Crissy Dow MD - 02/15/2023 11:11 AM EDT Eat primarily whole foods. Limit carbs, especially processed carbs. Do not drink your calories 30 grams of protein for breakfast decreases your hunger during the day by up to 40 % Premier Protein or generic 30 gm protein 1 gm sugar Walk for 15 minutes immediately a meal. Discussed using 20-30 g of protein shake meal replacement or a high-protein low-carb frozen meal as an easy alternative when feeling overwhelmed with food choices or has no access to healthy foods. 10 Easy Ways to Increase Your NEAT (Non-exercise activity thermogenesis) One of the best ways to lose those those extra pounds for good and keep it off is to make daily habit changes that can help burn those extra calories during activities you would normally do regardless. What I am talking about is increasing your NEAT. What is NEAT? It is Non-exercise activity thermogenesis. It is the activity that you are able to add into your daily routine outside of the gym that can help you in the long run. It can help you lose those ten pounds not this month, but over the next 12 months. In the grand scheme of things, would you not want to be ten pounds furnace brazer come next year? Now it is time for me to show you how. For a moment, imagine for me that you we are back before you started going to the gym. Imagine you were slowly gaining about a pound every two to three months. After 3 years of not exercising or working out you realized you are 10 pound heavier. All your clothes feel a little tighter and you just do not feel good in your own skin like how you used to. One day climbing up a flight of stairs you become way too easily winded, and not just that, but your knees are hurting. For some people, this is all too real. That was the wake up call to go to the gym to start exercising. Yet, why do you exercise when you gain weight? The reason is because you were taught that when you begin exercising, you begin to lose the weight you previously put on. The reason for the weight loss is because you have started to burn more calories compared to what you have consumed through your diet. When it comes to fat loss, you want to have a calorie deficit of about 500 calories a day so that about after a week you will be 3500 calories short. Your body is naturally programmed then to pull those calories of energy out of your stored fat. One pound of fat is roughly equal to 3500 calories. So when you burn those calories at the gym and create that calorie deficit you are burning through that stored fat. Another way you can create a calorie deficit is by changing up your diet. If you reduce the calories you eat by a small margin to create a 500 calories deficit then the same result will happen of burning a pound of stored body fat for every 3500 calories you did not eat that you may normally would have. Now finally for NEAT to come into play. We are going through your normal daily life but now you add some extra Non-exercise activity thermogenesis. You add some daily habits that helped you burn extra calories throughout your day. These extra calories that you burn add to your total daily energy expenditure which means that instead of those calories you were eating becoming stored as fat, you burned those calories, without even stepping into a gym. That is the power of NEAT. Sadly, most individuals do not know of the power of NEAT so most people do gain those ten pounds. Still, NEAT can help you lose that weight gained. Let s say now that you know the power of NEAT you want to incorporate it as part of your daily life and habits with that a positive change of dietary habits and a new exercise program. So let us say you are at the gym going three times a week and hike once a week burning a total of 2500 calories at the end of the week. With that you are improving your eating habits and diet and that has created an additional 2000 calories deficit at the end of the week. So so far a nice sum total of 4500 calories burned in just a single week. Now with a little magical NEAT you add just 100 calories a day of extra activity into your life and therefore an extra 700 calories that you burned in one week! So now you have 5200 calories a week burned between your diet, exercise, and nonexercise activity. Now over a course of a month you have 28,000 calories burned. Over three months time you have 84,000 calories. If you were to burn and have a calories deficit of 84,000 calories that is a sum total of 24 pounds lost! Now if you did not include NEAT into that math you would have lost 21.6 pounds. Still a great amount lost, but after a year you are missing out on those extra 10 pounds you could have lost by barely making a change. Here are 10 examples of NEAT to help you lose weight: WALKING: Walking is an easy activity nearly every one of us can accomplish. All we have to do is increase the number of steps we walk everyday and over time the extra energy used comes from our stores fat. It is also fairly simple to increase the number of steps you walk throughout the day. You can park your car down the street from your house. You can park at the farthest spot when shopping. You can go for an easy morning walk while you sip your morning cup of Cricket. All the steps will add up over time. COOKING: Most of us cook at least one meal throughout the day. During this time you can add in some simple movements. When I cook, I like to squat deep when I grab a tracy out of the cabinet. When I m reaching for the spices on the shelf I throw in a push-up. When I m waiting for the vegetables to steam I simply bounce or fidget in place while reading or going on social media. The point is while I m coming I am not standing still. For those times I m eating out, I will fidget in line by bouncing on one foot for a bit then switch it up. Sometimes I ll squat while waiting for my coffee. Again, the point is I keep moving. TELEVISION: I watch TV. I would even be lying to you if I said I hardly watch TV. I would be lying to you if I said I sit or lay down and watch TV. When watching my programs or sports on TV I am stretching. I lay down and stretch out my muscles. I ll use the couch as a steady surface to stretch my back out, my shoulders out, my legs out. I never just sit down and watch TV. I stretch and stay active and honestly it is one of the best habits I have created. It has helped me stay loose and I no longer feel guilty about watching TV. It is a win win. Morning Routine: Everyone has a morning routine that they go through during their work week. This is an easy time to add some extra movement to your day. The moment you get out of bed, do some push-ups. You do not even have to define a specific amount. Just drop down and give me however many you feel like. When you go to start the coffee pot, I want you to give me some jumping jacks. The moment you go and brush your teeth, give me some squats before you start or maybe even while you are brushing your teeth if you feel like really multitasking. Going out to get the morning paper, I want a burpee when you get to that paper. Just add in some simple movements or tasks that are associated with every stop along your morning routine. Evening Routine Same concept of your morning routine except I want you to do more stretching and more of a yoga pose idea with it. When you are going around the house shutting off the lights, take a deep breath and reach up and then down towards your toes. Locking the doors, I want a nice deep lunge stretch to help loosen up those hip flexors. Do simple more relaxing movements. Not only will these little movements help burn those extra calories, they are going to help mentally and physically relax you before you sleep. Your Car Most people are getting in and out of their car at least once a day. Every time you are getting into your car, add some movement. You can do jumping jacks, lunges, squats, some hip hinges, do something. I have known people where they will do as many reps of squats for each minute they expect to be driving. If they were going on a long road trip, they would break up those squats during the rest breaks. This is a very simple way to add in those extra calories burned. Personally I like to try getting into and out of my car without using my hands. Some days I will try to mix up only using one foot or the other with no hands trying to carefully slid out of the car. Ditch the Car: If you do not have a crazy commute to work or when running errands or even going out to eat ditch the car for the evening. Many people forget that they can walk places and it will in fact not take long at all. The walk will make you feel good, burn calories, and will help out our environment. Personally I try to ride my bike to work as often as I can. I know others who go and walk to the grocery store when buying only a handful of items. I know of others who take an uber to work in the morning and walk the distance home. The point is at least once a week ditch the car and ride your bike, walk, skate, or even run somewhere you need to go. Work Do not just sit there. If you have a job where you end up sitting down for an extended period of time you are doing harm to yourself. Luckily you can save yourself. Every 5 minutes you sound get up and stand up and squat down and then sit right back down. Anytime you have a break in your workflow, do a little twist in the chair stretching your back out. If you are stuck there reading your emails, add some arm circles in. You won t even have to get out of your chair for those arm circles. All the little movements add up. So please, do it for yourself and do not just sit there. You & Your Significant Other You don t have to be to have a significant other. Exercising with a bestie, a girlfriend or boyfriend or even a pet is a great way to spend time and feel great. Who does not like a long romantic walk down the beach in the sand? Who would not want to go walk or a hike and enjoy nature? Go and stefan your dog on all four and be a dog for fifteen minutes. They will enjoy it and so will you. The point is get moving with the your better half and you will be better for it. It will definitely bring the two of you closer as well. Clean Everything Cleaning is a very efficient way to multitask. You are getting those extra calories burned while cleaning whatever you wanted clean anyways. The fun part is make a game out of the cleaning. When I wash my car I see absolutely how fast I can get my car washed and clean. When I begin to vacuum I try to do everything while balancing on one leg or the other. When I sweep my house, I locator specialist the broomstick like I am trying to break it. The point is make it fun to clean and make it a good challenge. I put my laundry basket away from the washer and take jump shots with all my clothes into the washer. This is my favorite one and I highly recommend it if you have a phytopathologist. The cabrera is that you remember why you are doing every thing. Keep in mind your own goal. I want you to remember on why you are trying to lose weight in the first place. If you focus on that goal and remember to have fun with all these easy steps and tricks to add those extra calories burned, you will get to where you want to be and have fun in the process. Losing weight is not necessarily hard work. It can be fun if you are open to the idea and willing to look a bit goofy at times. I promise you though every one of these 10 ways to increase your daily NEAT will be effective and will all add up in the end. A great book that I would recommend for anyone reading is the Slight Edge. The book s main theme is that it is the little things done daily that lead to the biggest change. http://[email or web address].Azzure IT/10-easy -pqmt-kk-boxvicfr-your-neat/ 30 High Protein Snacks 1. Jerky 2. [place] mix without or minimal dried fruit 3. [place] roll-ups 4. [place]e yogurt 5. Veggies and yogurt dip 6. Tuna 7. Hard-boiled eggs 8. Peanut butter celery sticks 9. No-bake energy bites 10. Cheese slices/ Cheese Stick 11. Handful of almonds 12. Roasted chickpeas 13. Hummus and veggies 14. Cottage Cheese 15. Celery/fruit with peanut butter 16. Beef sticks (Grass-fed, natural ingredients) 17. Protein bars 18. Canned [place] 19. Cyrus pudding 20. Homemade granola - rolled oats, nuts, and a little sweetener like honey- 1/4 cup serving 21. Pumpkin seeds 22. Nut butter 23. Protein shakes 24. Edamame 25. Avocado and chicken salad 26. Fruit and nut bars - natural ingredients without added sugar. 27. Lentil salad 28. Overnight oatmeal 29. Egg muffins 30. Leftover protein or lunch meat When thinking about weight-loss, one often has an ideal body weight in mind or an ultimate weight-loss goal. It s very common for people to think that unless they lose dozens of pounds, they will not be any healthier. This is a misconception. Studies have shown that health benefits resulting from weight-loss are evident with a weight reduction as low as 5-10 percent. This means that an individual that weighs 200 pounds will benefit greatly from losing 10 to 20 pounds. A 5-10 percent weight-loss can result in: A five point increase in HDL cholesterol. Decrease triglycerides by an average of 40 mg/dl Decrease in blood pressure, both systolic and diastolic, by 5 mmHg on average. Decrease HgB A1C by half a point on average Significant decrease in insulin levels May improve sleep apnea and sometimes if the apnea was not very severe, one can be weaned from the CPAP breathing machine Decrease in levels of inflammatory substances circulating in the blood drop significantly and therefore the risk of vascular damage is reduced as well documented in this encounter [facility] 02-15-2023 History of Presen t illness Narrative Images from the original note were not included. WEIGHT MANAGEMENT FollowUp Note Patient Summary: is 48 year old who presents for follow-up evaluation of her obesity and related complications Vida Li is here today for follow up evaluation for phentermine. her last office visit was 1 month ago with me. She feels the medication is helping to control cravings. Last Wt 02/15/23 : 184 lb (83.5 kg) 5% weight loss = 175 lbs, 10% weight loss = 166 lbs Weight loss since last vist: =10 lbs Anti Obesity Medications >Phentermine: No uncontrolled HTN or hx of seizure disorder. No MAOI inhibitor use. No drug abuse hx. Crcl > 15. No cardiovascular disease hx. >Topiramate/zonisamide: No seizure hx. no kidney stone hx. Could help with sleep. Hx of migraines/CAMPA's. Contraception continuous aygestin PAST MEDICAL HISTORY Diagnosis Date Dysmenorrhea Excessive or frequent menstruation Heavy periods Current Outpatient Medications Medication Sig Dispense Refill methylPREDNISolone (MEDROL DOSE-PACK) 4 mg Dose-Pack TAKE DIRECTED IN PACKAGE FOR 6 DAYS norethindrone (AYGESTIN) 5 mg tablet Take 0.5 tablets by mouth once daily. 15 tablet 11 ENBREL SURECLICK 50 mg/mL (1 mL) spironolactone (ALDACTONE) 50 mg tablet Take 1 tablet by mouth once daily. 30 tablet 11 clotrimazole-betamethasone (LOTRISONE) cream Apply 1 application to affected area twice daily. 30 g 0 L. acidophilus-L. rhamnosus 15 billion cell cap Take 1 capsule by mouth once daily. FLORAJEN WOMEN. If on antibiotic, take at least 1-2 hours before or after antibiotic. KEEP REFRIGERATED (Patient not taking: Reported on 07/19/2021 ) 30 capsule 11 clotrimazole-betamethasone (LOTRISONE) cream Apply 1 application to affected area twice daily. (Patient not taking: Reported on 07/19/2021 ) 15 g 2 Omeprazole 40 mg capsule doxycycline monohydrate (MONODOX) 50 mg capsule colestipol (COLESTID) 1 gram tablet Take 1 tablet by mouth once daily. (Patient not taking: Reported on 06/02/2020 ) 30 tablet 3 escitalopram oxalate (LEXAPRO) 5 mg tablet Take 2.5 mg by mouth once daily. fenofibrate (LOFIBRA) 134 mg capsule Take 134 mg by mouth daily with breakfast. Ibuprofen 200 mg cap Take 200 mg by mouth. 400-600 mg every 6-8 hrs prn (Patient not taking: Reported on 07/19/2021 ) Azelaic Acid 15 % gel Apply to affected area. No current facility-administered medications for this visit. ROS Negative for CP, sob, dizziness. Denies Palpitations. Exercise: decreased (back injury) Stress: stable Sleep: stable Physical Exam BP 116/72 Pulse 88 Wt 174 lb (78.9 kg) LMP 04/04/2016 SpO2 97% BMI 28.08 kg/m Assessment/Plan: Vida Li is a 48 year old yo female with class 1 obesity who presented today for follow up for supervised weight loss. She has responded well to phentermine and the diet and lifestyle plan discussed last visit with a 10 lb weight loss this month. Pt was counseled and understands the [place] laws with phentermine. We will continue to monitor patients BP, Pulse in office visits but encourage her monitor at home. When she transitions to virtual visits she will need to monitor and bring those readings to her visits. Pt must lose >5% bodyweight in 3 months of starting Phentermine to continue with medication use. Pt Understands she must fill her rx within 7 days or will need to be seen in the office. Today we discussed protein intake- goal of 90grams daily- 30 with each meal. We reviewed continued tracking of food and weight daily. Lower carb choices- pt loves to bake but has stopped. Pt is very motiveated for healthy lifestyle to continue. Pt knows to check AVS for information regarding [id number]-[id number] and tracking. I spent a total of 30 minutes on the date of the service which included preparing to see the patient, onkm-lr-qwga patient care, completing clinical documentation, obtaining and/or reviewing separately obtained history, performing a medically appropriate examination, and counseling and educating the patient/family/caregiver. Follow up in 4 weeks for 2nd phentermine Rx Crissy Pisano MD documented in this encounter [facility] 01-15-2023 Note HNO ID: [id number] Author: Crissy Dow MD Service: ? Author Type: Physician Type: Progress Notes Filed: 01/15/2023 12:25 PM Note Text: Weight management and Problem visit: HPI: Ms. Li reports she has had hot flashes for about ~3 years. At her last visit she was told that losing weight may help, and she has successfully lost 20 pounds. The hot flashes are a little better. She also admits to night sweats. Patient states she has been monitoring her diet and avoiding sugars and carbs. Patient states that she does feel now that her appetite is increasing and she is constantly fighting herself to not eat and regain the weight. Patient is doing well with the Aygestin and has been able to cut those in half to control the bleeding. Pt has h/o PEs s/p covid and was taken of ocps. Pt does reports she tries to eat small frequent meals during the day to avoid overeating. Pt reports she constantly thinks about food and would like to consider options to help. Highest weight was 209lb (07/2022), has been able to lose 20lbs with diet and exercise but Is having more difficult time now due to hunger returning. 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 Hygiene Administrative Assistant History Comments: Sexual Activity: Yes; Male Contraception: Tubal Ligation PAST MEDICAL HISTORY Diagnosis Date Dysmenorrhea Excessive or frequent menstruation Heavy periods PAST SURGICAL HISTORY Procedure Laterality Date DELIVERY ONLY 05/2006 , low cervical ENDOMETRIAL ABLTJ THERMAL W/O HYSTEROSCOPIC GUID 11/15/14 LAPS SURG CHOLECYSTECTOMY W/CHOLANGIOGRAPHY 12/14/14 Normal IOC LIG/TRNSXJ FLP TUBE ABDL/VAG APPR UNI/BI 2005 Tubal ligation PAST SURGICAL HISTORY OF 1996 wisdom teeth PAST SURGICAL HISTORY OF 07/2011 fatty tissue removed from arm , bilateral PAST SURGICAL HISTORY OF Left 10/31/2016 left lipoma removed from left foot FAMILY HISTORY Problem Relation Age of Onset Emphysema Mother Hypertension Mother of COPD 10/13 with [place] Heart Mother Heart Father mi x 2/internal defibrolator, Hypertension Father Lipids Father Diabetes Father Coronary Artery Disease Father Diabetes Paternal Grandmother Asthma Other niece Breast Cancer Maternal Aunt Diabetes Brother of KS in 2009 Social History Tobacco Use Smoking status: Never Smokeless tobacco: Never Vaping Use Vaping Use: Never used Substance Use Topics Alcohol use: Yes Comment: rarely 4-5 per year Drug use: No Current Outpatient Medications Medication Sig norethindrone (AYGESTIN) 5 mg tablet Take 0.5 tablets by mouth once daily. ENBREL SURECLICK 50 mg/mL (1 mL) spironolactone (ALDACTONE) 50 mg tablet Take 1 tablet by mouth once daily. clotrimazole-betamethasone (LOTRISONE) cream Apply 1 application to affected area twice daily. Omeprazole 40 mg capsule escitalopram oxalate (LEXAPRO) 5 mg tablet Take 2.5 mg by mouth once daily. fenofibrate (LOFIBRA) 134 mg capsule Take 134 mg by mouth daily with breakfast. L. acidophilus-L. rhamnosus 15 billion cell cap Take 1 capsule by mouth once daily. FLORAJEN WOMEN. If on antibiotic, take at least 1-2 hours before or after antibiotic. KEEP REFRIGERATED (Patient not taking: Reported on 07/19/2021 ) clotrimazole-betamethasone (LOTRISONE) cream Apply 1 application to affected area twice daily. (Patient not taking: Reported on 07/19/2021 ) doxycycline monohydrate (MONODOX) 50 mg capsule colestipol (COLESTID) 1 gram tablet Take 1 tablet by mouth once daily. (Patient not taking: Reported on 06/02/2020 ) Ibuprofen 200 mg cap Take 200 mg by mouth. 400-600 mg every 6-8 hrs prn (Patient not taking: Reported on 07/19/2021 ) Azelaic Acid 15 % gel Apply to affected area. No current facility-administered medications for this visit. Allergies As of Date: 01/15/2023 Allergen Noted Reaction ASA [SALICYLATES] 12/05/2005 Hives DEMEROL [MEPERIDINE (PF)] 05/13/2006 Itching LATEX 11/11/2014 Rash PERCOCET [OXYCODONE-ACETAMINOPHEN] 006 Rash Fully Assessed 01/15/2023 REVIEW OF SYSTEMS: Cardiac: Patient denies a history of any cardiovascular diseases. She denies history of [place], valvular disease, palpitations, chest pain. Other:She denies a history of any kidney stones, seizures, repetitive migraine headaches. Allergies and current medication updated:Yes EXAM: BP 110/76 Wt 184 lb 6.4 oz (83.6kg) LMP 04/04/2016 GENERAL: pleasant, female in no apparent distress HEENT: Normocephalic and atraumatic NECK: full range of motion DERMATOLOGY: Normal, without lesions, non-icteric, and non-hirsute NEURO: alert and oriented x3,exam grossly non-focal EXTREMITIES: normal ASSESSMENT AND PLAN: Encounter Diagnosis ICD-10-CM 1. Hot flashes R23.2 FSH BLD ESTRADIOL-17B BLD 2. (more content not included)... [facility] 01-15-2023 Instructions Crissy Dow MD - 01/15/2023 12:10 PM EDT Images from the original note were not included. RELIZEN or ESTROVEN (supplements) PHENTERMINE -Provider follow up visit- Please call [phone] to schedule a follow up appointment. You should be seen every 3 months while taking this medication. Try to make an in-person appointment every 6 months in order for us to get an updated blood pressure and heart rate and cardiopulmonary physical assessment if necessary. -- Please monitor your blood pressure (either purchase BP cuff, or go to pharmacy to check your BP at a local pharmacy). Please avoid any stimulants (in the form of caffeinated beverages like coffee, tea, sports drinks) and caution with decongestants. We will require an updated blood pressure and heart rate at follow up (this includes virtual visits). -- Please monitor for , if at any point you become please stop the medication. THIS IS A SUMMARY OF OUR DISCUSSION ABOUT THIS MEDICATION. PLEASE READ IT IS IMPORTANT FOR YOUR WEIGHT LOSS PLAN Per updated [place] state rules, a one month supply of phentermine is provided at a time, with 2 refills. You, the patient, are responsible for making an appointment to see a provider within 12 weeks in order to get a refill of this medication. It is imperative that you get this (and future) phentermine prescriptions within 7 days as pharmacists will NOT refill prescriptions outside this 7 day window per State law. Phentermine can only be prescribed for a 3 month interval at a time. You are aware of the following statements per the state of [place] pharmacy board rules. 1. Timely refills are required 2. Every 12 weeks office visits are required. 3. ALL prescriptions need to be filled within 7 days of the written prescription 4. Refills need to be done EVEN IF there is medication still available ? Phentermine (fen ter meen) What are the common names? Adipex-P, Ionamin Why is this medication prescribed? Phentermine was approved by the FDA in 1958 for short term weight loss. It works by decreasing appetite. Phentermine is absorbed by the body and travels to the appetite center of the brain. It works by helping you feel less hungry, less driven to eat, more satisfied with less food. I ve heard about fen-phen. Will phentermine affect my heart? The two drug combination fenfluramine/phentermine, usually called fen-phen, became popular in the early as a diet pill. However, it was withdrawn by the FDA in late 1996 after studies which showed that fenfluramine can cause fatal pulmonary hypertension and heart valve problems. Phentermine is not a combination medication and does not contain the compound fenfluramine. What special precautions should I follow? Before having phentermine prescribed, tell your doctor and pharmacist: If you have allergies to any component of phentermine If you are , plan to become , are breast-feeding, or if you become while taking phentermine What are the absolute contraindications? Stroke or Transient Ischemic Attacks Cardiac arrhythmias or Atrial fibrillation Coronary artery disease Seizure Disorder Uncontrolled blood pressure Angina Congestive Heart Failure Valvular Heart Disease or primary pulmonary hypertension Drug interactions. Use of monamine oxidase inhibitors (MAOI s) What are the side effects of phentermine? Immediately discontinue the medicine and seek medical help if you have severe symptoms such as chest pain, shortness of breath, feeling faint, ability to think clearly, eye pain or other visual symptoms: Palpitations (strong or rapid heartbeat) Difficulty sleeping or falling asleep Elevated blood pressure Dry mouth Anxiety or agitation Getting a stimulant/or hyper effect or jitteriness-(Usually goes away after a few days or weeks) Glaucoma In case of emergency/overdose In case of overdose, call your local poison control center at or call local emergency services at [phone]. What other information should I know? Keep all appointments with your doctor and the laboratory. Do not let anyone else take your medication. Phentermine is a controlled substance. It is FDA approved for up to 3 months. Prescriptions may be refilled only a limited number of times. Keep a written list of all of your prescription and nonprescription (vtrd-kmy-taoyipc) medicines, in addition to vitamins, minerals, or other dietary supplements. If you are taking the extended-release (long-acting) tablets, do not split, chew, or crush them tablet. There are some tablets that can be crushed and mixed with food Alcohol can make the side effects of phentermine worse How should I monitor while on this medication? Please check your blood pressure (BP) and resting pulse weekly (twice a week in the first 2 weeks). If the BP is over 140/90 (either one), or if the resting pulse is over 96 per minute (count for 10 seconds and multiply by 6), then stop the medication and call your doctor. Continue to improve your dietary and physical activity habits as the combination works best while on this medication. Start out by taking the medication in the morning at least 30 minutes prior to meals. If the effect seems to wear off by dinner time, try taking it later in the morning, but taking too late may result in trouble falling asleep. Be sure to eat regular meals. Less hunger does not make it appropriate to skip meals. Monitor your caffeine intake and use of decongestants as they may worsen the effects of phentermine Make sure to have an eye exam, including the pressure in your eyes (intra-ocular pressure), once a year. What should I do if I forget a dose? Skip the missed dose and continue your regular dosing schedule the next day. Do not take a double dose to make up for a missed one. Sources [facility] Consumer Medication Info: http://www.ncbi.nlm.nih.gov/pubm edhealth/SGT7413428/ AMA patient handouts: http://www.amaassn.org/ama1/pub/ upload/mm/433/phrxsurgery.pdf Drugs.com: http://www.drugs.com/pro/phenter mine.html documented in this encounter [facility] 01-15-2023 History of Presen t illness Narrative Weight management and Problem visit: HPI: Ms. Li reports she has had hot flashes for about ~3 years. At her last visit she was told that losing weight may help, and she has successfully lost 20 pounds. The hot flashes are a little better. She also admits to night sweats. Patient states she has been monitoring her diet and avoiding sugars and carbs. Patient states that she does feel now that her appetite is increasing and she is constantly fighting herself to not eat and regain the weight. Patient is doing well with the Aygestin and has been able to cut those in half to control the bleeding. Pt has h/o PEs s/p covid and was taken of ocps. Pt does reports she tries to eat small frequent meals during the day to avoid overeating. Pt reports she constantly thinks about food and would like to consider options to help. Highest weight was 209lb (07/2022), has been able to lose 20lbs with diet and exercise but Is having more difficult time now due to hunger returning. 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 Hygiene Administrative Assistant History Comments: Sexual Activity: Yes; Male Contraception: Tubal Ligation PAST MEDICAL HISTORY Diagnosis Date Dysmenorrhea Excessive or frequent menstruation Heavy periods PAST SURGICAL HISTORY Procedure Laterality Date DELIVERY ONLY 05/2006 , low cervical ENDOMETRIAL ABLTJ THERMAL W/O HYSTEROSCOPIC GUID 11/15/14 LAPS SURG CHOLECYSTECTOMY W/CHOLANGIOGRAPHY 12/14/14 Normal IOC LIG/TRNSXJ FLP TUBE ABDL/VAG APPR UNI/BI 2006 Tubal ligation PAST SURGICAL HISTORY OF 1996 wisdom teeth PAST SURGICAL HISTORY OF 07/2011 fatty tissue removed from arm , bilateral PAST SURGICAL HISTORY OF Left 10/31/2016 left lipoma removed from left foot FAMILY HISTORY Problem Relation Age of Onset Emphysema Mother Hypertension Mother of COPD 10/13 with [place] Heart Mother Heart Father mi x 2/internal defibrolator, Hypertension Father Lipids Father Diabetes Father Coronary Artery Disease Father Diabetes Paternal Grandmother Asthma Other niece Breast Cancer Maternal Aunt Diabetes Brother of [place] in 2009 Social History Tobacco Use Smoking status: Never Smokeless tobacco: Never Vaping Use Vaping Use: Never used Substance Use Topics Alcohol use: Yes Comment: rarely 4-5 per year Drug use: No Current Outpatient Medications Medication Sig norethindrone (AYGESTIN) 5 mg tablet Take 0.5 tablets by mouth once daily. ENBREL SURECLICK 50 mg/mL (1 mL) spironolactone (ALDACTONE) 50 mg tablet Take 1 tablet by mouth once daily. clotrimazole-betamethasone (LOTRISONE) cream Apply 1 application to affected area twice daily. Omeprazole 40 mg capsule escitalopram oxalate (LEXAPRO) 5 mg tablet Take 2.5 mg by mouth once daily. fenofibrate (LOFIBRA) 134 mg capsule Take 134 mg by mouth daily with breakfast. L. acidophilus-L. rhamnosus 15 billion cell cap Take 1 capsule by mouth once daily. [place]ORAJ[employer] WOMEN. If on antibiotic, take at least 1-2 hours before or after antibiotic. KEEP REFRIGERATED (Patient not taking: Reported on 07/19/2021 ) clotrimazole-betamethasone (LOTRISONE) cream Apply 1 application to affected area twice daily. (Patient not taking: Reported on 07/19/2021 ) doxycycline monohydrate (MONODOX) 50 mg capsule colestipol (COLESTID) 1 gram tablet Take 1 tablet by mouth once daily. (Patient not taking: Reported on 06/02/2020 ) Ibuprofen 200 mg cap Take 200 mg by mouth. 400-600 mg every 6-8 hrs prn (Patient not taking: Reported on 07/19/2021 ) Azelaic Acid 15 % gel Apply to affected area. No current facility-administered medications for this visit. Allergies As of Date: 01/15/2023 Allergen Noted Reaction ASA [SALICYLATES] 12/05/2005 Hives DEMEROL [MEPERIDINE (PF)] 05/13/2006 Itching LATEX 11/11/2014 Rash PERCOCET [OXYCODONE-ACETAMINOPHEN] 006 Rash Fully Assessed 01/15/2023 REVIEW OF SYSTEMS: Cardiac: Patient denies a history of any cardiovascular diseases. She denies history of [place], valvular disease, palpitations, chest pain. Other:She denies a history of any kidney stones, seizures, repetitive migraine headaches. Allergies and current medication updated:Yes EXAM: BP 110/76 Wt 184 lb 6.4 oz (83.6kg) LMP 04/04/2016 GENERAL: pleasant, female in no apparent distress HEENT: Normocephalic and atraumatic NECK: full range of motion DERMATOLOGY: Normal, without lesions, non-icteric, and non-hirsute NEURO: alert and oriented x3,exam grossly non-focal EXTREMITIES: normal ASSESSMENT AND PLAN: Encounter Diagnosis ICD-10-CM 1. Hot flashes R23.2 FSH BLD ESTRADIOL-17B BLD 2. Perimenopausal N95.1 FSH BLD ESTRADIOL-17B BLD 3. History of obesity Z86.39 Phentermine HCl (ADIPEX-P) 37.5 mg tablet 4. BMI 33.0-33.9,adult Z68.33 5. Dyslipidemia E78.5 Phentermine HCl (ADIPEX-P) 37.5 mg tablet LIPID PANEL, NONFASTING 6. Encounter for screening for diabetes mellitus Z13.1 BASIC METABOLIC PNL INSULIN ASSAY BLOOD HGB A1C 7. Screening for thyroid disorder Z13.29 8. Encounter for vitamin deficiency screening Z13.21 VITAMIN D 25 HYDROXY 9. Encounter for weight management Z76.89 10 I discussed phentermine with the patient. She will start the first week taking a half a tablet daily and then may increase at that point. We discussed increase in heart rate and increase in blood pressure. She will monitor these at home. We discussed common side effects including dry mouth constipation. We discussed continued exercise tracking weight and tracking her nutrition. Patient has a history of dyslipidemia and is currently taking fenofibrate. Briefly discussed adding in Topamax if she plateaus or does not respond well. We discussed the laws in [place] regarding phentermine. She understands that she will have to follow-up every month for the first 3 months and then we will see her every 3 months. 11. We discussed control of hot flashes and night sweats. Reviewed decreasing sugar intake decrease alcohol and caffeine intake. Regular exercise and routine sleep. We discussed ibxj-tob-tkhzgmw supplement therapy including relizen and Estroven. She is not a candidate for estrogen therapy due to her history of PE after COVID. I spent a total of 45 minutes on the date of the service which included preparing to see the patient, hyng-nx-[id number] patient care, completing clinical documentation, obtaining and/or reviewing separately obtained history, performing a medically appropriate examination, counseling and educating the patient/family/caregiver, and ordering medications, tests, or procedures Medical Decision Making: Medical Decision Making Level: 1 - N/A Crissy Pisano MD documented in this encounter [facility] 07-24-2022 History of Presen t illness Narrative Vida is a 47 year old who presents for an annual gynecologic exam without complaints. Doing well with Aygestin daily- no menses. Pt reports steady weight gain over last few years. Went to [place] with family- had a great time. 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 Had PEs related to covid- stopped sprintec and started aygestin daily due to heavy vaginal bleeding. Menses: none- continuous agygestin . Contraception: continuous aygestin use 2.5mg HPV vaccine: No Last Pap: 07/20/2020 normal HPV: 07/18/2020 negative History of abnormal pap: No Last mammogram: 2021 abnormal views- needs follow up sep 2022 Sexually active: Yes History of STDS: None Patient concerns for STD exposure: No. 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 Hygiene Administrative Assistant History Comments: Sexual Activity: Yes; Male Contraception: Tubal Ligation PAST MEDICAL HISTORY Diagnosis Date Dysmenorrhea Excessive or frequent menstruation Heavy periods PAST SURGICAL HISTORY Procedure Laterality Date DELIVERY ONLY 05/2006 , low cervical ENDOMETRIAL ABLTJ THERMAL W/O HYSTEROSCOPIC GUID 11/15/14 LAPS SURG CHOLECYSTECTOMY W/CHOLANGIOGRAPHY 12/14/14 Normal IOC LIG/TRNSXJ FLP TUBE ABDL/VAG APPR UNI/BI 2006 Tubal ligation PAST SURGICAL HISTORY OF 1996 wisdom teeth PAST SURGICAL HISTORY OF 07/2011 fatty tissue removed from arm , bilateral PAST SURGICAL HISTORY OF Left 10/31/2016 left lipoma removed from left foot FAMILY HISTORY Problem Relation Age of Onset Emphysema Mother Hypertension Mother of COPD 10/13 with [place] Heart Mother Heart Father mi x 2/internal defibrolator, Hypertension Father Lipids Father Diabetes Father Coronary Artery Disease Father Diabetes Paternal Grandmother Asthma Other niece Breast Cancer Maternal Aunt Diabetes Brother of [place] in 2009 SOCIAL HISTORY Social History Tobacco Use Smoking status: Never Smokeless tobacco: Never Vaping Use Vaping Use: Never used Substance Use Topics Alcohol use: Yes Comment: rarely 4-5 per year Drug use: No REVIEW OF SYSTEMS Abdomen: No abdominal pain, nausea, vomiting, diarrhea, or constipation. No bloating, early satiety, indigestion, or increased flatulence. Bladder: No dysuria, gross hematuria, urinary frequency, urinary urgency, or incontinence. Breast: No breast lumps, nipple d/c, overlying skin changes, redness or skin retraction. Allergies and current medication updated:Yes EXAM: BP 120/78 Ht 5' 6 (1.68m) Wt 206 lb (93.4kg) LMP 04/04/2016 BMI 33.27 kg/(m^2). GENERAL: pleasant, female in no apparent distress HEENT: Normocephalic, atraumatic, mucus membranes moist, and no lesions NECK: Supple, full range of motion, no adenopathy, and thyroid normal DERMATOLOGY: Normal, without lesions, non-icteric, and non-hirsute BREAST: soft, non-tender, symmetric, no dominant mass, normal nipple-areolar complex, no lymphadenopathy, and no nipple discharge ABDOMEN: soft, non-tender, and no masses PELVIC: external genitalia normal, normal Bartholin's glands, urethra, [place]'s glands, no vulvar lesions, no cervical lesions, good vaginal support, physiologic discharge present, normal appearing perineal body and perianal region- ? Yeast dermatitis in bilateral groin BIMANUAL: uterus normal size, shape and consistency, no adnexal masses, and non-tender RECTOVAGINAL: deferred. NEURO: alert and oriented x3,exam grossly non-focal EXTREMITIES: normal ASSESSMENT/PLAN: 1) Health maintenance: Pap/HPV up to date. Mammogram up to date . Nutrition, exercise and routine health maintenance exams reviewed. Calcium/Vitamin D supplementation information provided. 2) Contraception: Progestin - only contraceptives. Contraceptive options reviewed and information provided. 3) STD screening: Declined STD check. 4) Follow up one year or sooner as needed Crissy Pisano MD [employer] offered: Patient declines. documented in this encounter [facility] 07-24-2022 Instructions Crissy Dow MD - 07/24/2022 11:46 AM EDT The Obesity Code by Dr. Kevin Florence Life in the Fasting Kp by Dr. Kevin Wu, Sgt, Repeat By Candi Edge documented in this encounter [facility] 07-10-2022 Miscellaneous Notes Patient no longer taking Sprintec. Rosina Mcintosh RN documented in this encounter [facility] 06-18-2022 Miscellaneous Notes Patient no longer taking. Rosina Mcintosh RN documented in this encounter [facility] 05-23-2022 Miscellaneous Notes Pharmacy generated refill request. Pending Prescriptions Disp Refills NORETHINDRONE ACETATE 5 MG TABLET 15 tablet 4 Sig: take 1/2 tablet by mouth once daily PEBBLES: Yes Last annual exam: 07/19/21 Please approve the above prescription(s) to electronically send to pharmacy. Vida Rene RN documented in this encounter [facility] 05-08-2022 Miscellaneous Notes 02/12/22 refill request - patient no longer taking Sprintec. documented in this encounter [facility] 03-20-2022 Miscellaneous Notes Ordered Patient notified. States mammography told her that she will need both a diagnostic mammogram bilateral in addition to the breast ultrasound. Please file mammogram order. Thank you. Vida Rene RN ----- Message from Crissy Dow MD sent at 03/20/2022 10:57 AM EDT ----- Needs bilateral breast us documented in this encounter [facility] 02-12-2022 Miscellaneous Notes Patient no longer on Sprintec. Rosina Mcintosh RN documented in this encounter [facility] 08-22-2021 Note HNO ID: [id number] Author: Noman Angel MD Service: ? Author Type: Physician Type: Progress Notes Filed: 08/22/2021 10:06 AM Note Text: Thyroid Initial Visit Virtual Visit (Audio/Visual) I have discussed the nature of this visit with the patient which will occur via [facility] (Phone, Virtual Visit) and she agrees to proceed with this interaction . I spent a total of 40 minutes on the date of the service which included preparing to see the patient, eteq-yk-wgza patient care, completing clinical documentation, performing a medically appropriate examination and counseling and educating the patient/family/caregiver. Vida Li is a 46 year old female who is presenting today August 22, 2021 for a Thyroid problem. Referring Physician: .self Reason for visit: hot flashes X-rays with contrast dyes within last 3 months? no Previous laboratory results: TSH (uU/mL) Date Value 07/19/2021 1.100 07/14/2020 1.380 09/29/2016 1.040 T4 (ug/dL) Date Value 07/19/2021 9.0 FTI (ug/dL) Date Value 07/19/2021 7.0 T3 (ng/dL) Date Value 07/19/2021 168 PAST MEDICAL HISTORY Diagnosis Date - Dysmenorrhea - Excessive or frequent menstruation Heavy periods FAMILY HISTORY Problem Relation Age of Onset - Emphysema Mother - Hypertension Mother of COPD 10/13 with [place] - Heart Mother - Heart Father mi x 2/internal defibrolator, - Hypertension Father - Lipids Father - Diabetes Father - Coronary Artery Disease Father - Diabetes Paternal Grandmother - Asthma Other niece - Breast Cancer Maternal Aunt - Diabetes Brother of [place] in 2009 PAST SURGICAL HISTORY Procedure Laterality Date - DELIVERY ONLY 05/2006 , low cervical - LAP CHOLECYSTECT/CHOLANGIOGRAPHY 12/14/14 Normal IOC - LIGATE FALLOPIAN TUBE 2005 Tubal ligation - PAST SURGICAL HISTORY OF 1995 wisdom teeth - PAST SURGICAL HISTORY OF 07/2011 fatty tissue removed from arm , bilateral - PAST SURGICAL HISTORY OF Left 10/31/2016 left lipoma removed from left foot - THERMAL ENDOMETRIAL ABLATION 11/15/14 HPI The patient is a 46 year old female patient with history of hot flashes. She states that she wears t shirts in the winter time and sleeps with fans. The patient was recently diagnosed with COVID on July 16, following that had a blood clot. The patient feels she much better now. The patient was noted to be sick on 07/16. Was taken off OCP's due to blood clots. She just had a period. After the ablation the patient did not get periods anymore. She thinks she may have started getting hot flashes thereafter. Citalopram does not help with hot flashes. Her most recent TSH was normal 1.100 when she was ill. She is having evaluation of breast mass which was found on routine jojo. Review of Systems: REVIEW OF SYSTEMS Constitutional: Negative for: Fever, Night sweats and Recent weight change Skin: ENT: Negative for: Hearing loss Eyes: Cardiovascul ar: Chest pain Respiratory: Negative for: Cough and Difficulty breathing Gastrointestinal: nausea and diarrhea Musculoskeletal: Negative for: Myalgias Neurological: Negative for: Headaches and Dizziness Genitourinary: Social History: Social History Tobacco Use - Smoking status: Never Smoker - Smokeless tobacco: Never Used Vaping Use - Vaping Use: Never used Substance Use Topics - Alcohol use: Yes Comment: rarely 4-5 per year - Drug use: No Family Hx: father had thyroid issues. PAST MEDICAL HISTORY Diagnosis Date - Dysmenorrhea - Excessive or frequent menstruation Heavy periods ASSESSMENT/PLAN: 1. Hot flashes - ICD9: 782.62, ICD10: R23.2 Her most recent TSH was normal when the patient was acutely ill. We will re-check thyroid labs now. - TSH BLD - T4 FREE/FREE THYROX - THYROID PEROXIDASE ANTIBODY BLOOD Noman Angel MD [facility] documented as of this encounter (statuses as of 02/12/2022) [address] History of Past illness Narrative* Problem Noted Date Resolved Date Dysuria 06/21/2010 11/07/2011 Back pain 09/21/2009 11/07/2011 Abdominal pain 09/21/2009 11/07/2011 documented as of this encounter (statuses as of 03/20/2022) [address] History of Past illness Narrative* Problem Noted Date Resolved Date Dysuria 06/21/2010 11/07/2011 Back pain 09/21/2009 11/07/2011 Abdominal pain 09/21/2009 11/07/2011 documented as of this encounter (statuses as of 03/21/2022) [address] History of Past illness Narrative* Problem Noted Date Resolved Date Dysuria 06/21/2010 11/07/2011 Back pain 09/21/2009 11/07/2011 Abdominal pain 09/21/2009 11/07/2011 documented as of this encounter (statuses as of 05/08/2022) [place] [id number] History of Past illness Narrative* Problem Noted Date Resolved Date Dysuria 06/21/2010 11/07/2011 Back pain 09/21/2009 11/07/2011 Abdominal pain 09/21/2009 11/07/2011 documented as of this encounter (statuses as of 05/23/2022) [place] [id number] History of Past illness Narrative* Problem Noted Date Resolved Date Dysuria 06/21/2010 11/07/2011 Back pain 09/21/2009 11/07/2011 Abdominal pain 09/21/2009 11/07/2011 documented as of this encounter (statuses as of 06/18/2022) [address] History of Past illness Narrative* Problem Noted Date Resolved Date Dysuria 06/21/2010 11/07/2011 Back pain 09/21/2009 11/07/2011 Abdominal pain 09/21/2009 11/07/2011 documented as of this encounter (statuses as of 07/10/2022) [address] History of Past illness Narrative* Problem Noted Date Resolved Date Dysuria 06/21/2010 11/07/2011 Back pain 09/21/2009 11/07/2011 Abdominal pain 09/21/2009 11/07/2011 documented as of this encounter (statuses as of 07/24/2022) [address] History of Past illness Narrative* Problem Noted Date Resolved Date Dysuria 06/21/2010 11/07/2011 Back pain 09/21/2009 11/07/2011 Abdominal pain 09/21/2009 11/07/2011 documented as of this encounter (statuses as of 07/30/2022) [address] History of Past illness Narrative* Problem Noted Date Resolved Date Dysuria 06/21/2010 11/07/2011 Back pain 09/21/2009 11/07/2011 Abdominal pain 09/21/2009 11/07/2011 documented as of this encounter (statuses as of 10/01/2022) [address] History of Past illness Narrative* Problem Noted Date Resolved Date Dysuria 06/21/2010 11/07/2011 Back pain 09/21/2009 11/07/2011 Abdominal pain 09/21/2009 11/07/2011 documented as of this encounter (statuses as of 01/15/2023) [address] History of Past illness Narrative* Problem Noted Date Resolved Date Dysuria 06/21/2010 11/07/2011 Back pain 09/21/2009 11/07/2011 Abdominal pain 09/21/2009 11/07/2011 documented as of this encounter (statuses as of 01/21/2023) [address] History of Past illness Narrative* Problem Noted Date Resolved Date Dysuria 06/21/2010 11/07/2011 Back pain 09/21/2009 11/07/2011 Abdominal pain 09/21/2009 11/07/2011 documented as of this encounter (statuses as of 01/23/2023) [address] History of Past illness Narrative* Problem Noted Date Resolved Date Dysuria 06/21/2010 11/07/2011 Back pain 09/21/2009 11/07/2011 Abdominal pain 09/21/2009 11/07/2011 documented as of this encounter (statuses as of 02/15/2023) [address] History of Past illness Narrative* Problem Noted Date Resolved Date Dysuria 06/21/2010 11/07/2011 Back pain 09/21/2009 11/07/2011 Abdominal pain 09/21/2009 11/07/2011 documented as of this encounter (statuses as of 03/04/2023) [address] History of Past illness Narrative* Problem Noted Date Resolved Date Dysuria 06/21/2010 11/07/2011 Back pain 09/21/2009 11/07/2011 Abdominal pain 09/21/2009 11/07/2011 documented as of this encounter (statuses as of 04/24/2023) [address] History of Past illness Narrative* Problem Noted Date Resolved Date Dysuria 06/21/2010 11/07/2011 Back pain 09/21/2009 11/07/2011 Abdominal pain 09/21/2009 11/07/2011 documented as of this encounter (statuses as of 05/01/2023) [address] History of Past illness Narrative* Problem Noted Date Diagnosed Date Resolved Date Dysuria 06/21/2010 11/07/2011 Back pain 09/21/2009 11/07/2011 Abdominal pain 09/21/2009 11/07/2011 documented as of this encounter (statuses as of 06/13/2023) [address] History of Past illness Narrative* Problem Noted Date Diagnosed Date Resolved Date Dysuria 06/21/2010 11/07/2011 Back pain 09/21/2009 11/07/2011 Abdominal pain 09/21/2009 11/07/2011 documented as of this encounter (statuses as of 08/13/2023) [address] History of Past illness Narrative* Problem Noted Date Diagnosed Date Resolved Date Dysuria 06/21/2010 11/07/2011 Back pain 09/21/2009 11/07/2011 Abdominal pain 09/21/2009 11/07/2011 documented as of this encounter (statuses as of 09/17/2023) [facility] History of Past illness Narrative* Problem Noted Date Diagnosed Date Resolved Date Dysuria 06/21/2010 11/07/2011 Back pain 09/21/2009 11/07/2011 Abdominal pain 09/21/2009 11/07/2011 documented as of this encounter (statuses as of 09/17/2023) [facility] note* Diagnosis Abnormal mammogram- Primary Abnormal mammogram, unspecified [facility] Diagnosis Category 3 mammography result with short follow-up interval suggested for probably benign finding Inconclusive mammogram [facility] Diagnosis Encounter for gynecological examination (general) (routine) without abnormal findings- Primary Encounter for screening mammogram for malignant neoplasm of breast Other screening mammogram Screening for condition Screening for unspecified condition [facility]* Diagnosis Hot flashes- Primary Symptomatic menopausal or female climacteric states Perimenopausal Symptomatic menopausal or female climacteric states History of obesity Personal history of other specified diseases BMI 33.0-33.9,adult Body Mass Index 33.0-33.9, adult Dyslipidemia Other and unspecified hyperlipidemia Encounter for screening for diabetes mellitus Screening for diabetes mellitus Screening for thyroid disorder Encounter for vitamin deficiency screening Screening for other and unspecified endocrine, nutritional, metabolic, and immunity disorders Encounter for weight management [facility] Diagnosis Overweight- Primary History of obesity Personal history of other specified diseases Dyslipidemia Other and unspecified hyperlipidemia Encounter for weight management [facility] Diagnosis Dyslipidemia- Primary Other and unspecified hyperlipidemia Class 1 obesity Encounter for weight management BMI 33.0-33.9,adult Body Mass Index 33.0-33.9, adult [facility]* Diagnosis Dyslipidemia- Primary Other and unspecified hyperlipidemia Overweight History of obesity Personal history of other specified diseases [facility]* Diagnosis Dyslipidemia- Primary Other and unspecified hyperlipidemia Hyperinsulinemia Other specified hypoglycemia Class 1 obesity Overweight History of obesity Personal history of other specified diseases Encounter for vitamin deficiency screening Screening for other and unspecified endocrine, nutritional, metabolic, and immunity disorders Screening for diabetes mellitus Screening for deficiency anemia Screening for other and unspecified deficiency anemia Screening cholesterol level Screening for lipoid disorders Screening for thyroid disorder documented in this encounter [facility] for referral (narrative)* Diagnostic Procedure Only (Routine) - Pending Review Specialty Diagnoses / Procedures Referred By Lance rico Referred To Contact [facility] Diagnoses Abnormal mammogram Procedures CORNEL DIAGNOSTIC BILAT DIAGNOSTIC MAMMOGRAPHY COMPUTER-AIDED DETCJ BI Crissy Tovar MD [address] [place] [address] [facility] [address] [place], [place] [id number] Referral ID Status Reason Start Date Expiration Date Visits Requested Visits Authorized [id number] Pending Review Auto-Generat ed Referral 03/20/2022 04/19/2023 1 1 [facility] for referral (narrative)* Diagnostic Procedure Only (Routine) - Authorized Specialty Diagnoses / Procedures Referred By Lance rico Referred To Contact [facility] Diagnoses Encounter for screening mammogram for malignant neoplasm of breast Procedures CORNEL SCREENING W NORA SCREENING DIGITAL BREAST TOMOSYNTHESIS BI SCREENING MAMMOGRAPHY BI 2-VIEW BREAST INC CAD Crissy Tovar MD [address] [place] [address] [facility] [place] [place] [id number] Referral ID Status Reason Start Date Expiration Date Visits Requested Visits Authorized [id number] Authorized Auto-Generat ed Referral 07/24/2022 08/23/2023 1 1 T [facility] for visit Narrative* Diagnostic Procedure Only (Routine) - Closed Specialty Diagnoses / Procedures Referred By Lance rico Referred To Contact [facility] Diagnoses Category 3 mammography result with short follow-up interval suggested for probably benign finding Procedures CORNEL DIAGNOSTIC RT DIAGNOSTIC MAMMOGRAPHY COMPUTER-AIDED DETCJ UNI Crissy Tovar MD [address] [place] [address] [facility] [address] [place] [address] [place] [phone] Referral ID Status Reason Start Date Expiration Date V isits Requested Visits Authorized [id number] Closed Auto-Generate d Referral 11/22/2021 12/22/2022 1 1 [facility] Discharge Instructions * Attachments The following attachments cannot be sent through Care Everywhere. * Fall Prevention ([place]) * Lacerations: Open ([place]) documented in this encounter Assessments Diagnosis Fall, initial encounter- Primary Laceration of scalp, initial encounter Summary Purpose Family History No Family History Records FoundNo Family History Records FoundNo Family History Records Found Advance Directives No Advanced Directives Records FoundNo Advanced Directives Records FoundNo Advanced Directives Records Found Additional Source Comments Reason for Visit (unrecogniz ed section and content) Reason Comments Refill Request Reason Comments Results Reason Comments Yearly Exam Reason Comments Follow Up Discuss menopause Reason Comments Weight Management Reason Onset Date Comments Refill Request 03/03/2023 Reason Onset Date Comments Refill Request 08/12/2023 Reason Comments Abdominal Pain INFORMATION SOURCE (unrecogn ized section and content) DATE CREATED AUTHOR AUTHOR'S ORGANIZ ATION 01/16/2022 [facility] DATE CREATED AUTHOR AUTHOR'S ORGANIZ ATION 09/18/2023 [facility] Source Comments (unrecognize d section and content) In the event this informatio n is protected by the Federal Confidentiality of Alcohol and Drug Abuse Patient Records regulations: The Federal rules restrict any use of the information to criminally investigate or prosecute any alcohol or drug abuse patient.[facility] event this information is protected by the Federal Confidentiality of Alcohol and Drug Abuse Patient Records regulations: The Federal rules restrict any use of the information to criminally investigate or prosecute any alcohol or drug abuse patient.[facility] the event this information is protected by the Federal Confidentiality of Alcohol and Drug Abuse Patient Records regulations: The Federal rules restrict any use of the information to criminally investigate or prosecute any alcohol or drug abuse patient.[facility] the event this information is protected by the Federal Confidentiality of Alcohol and Drug Abuse Patient Records regulations: The Federal rules restrict any use of the information to criminally investigate or prosecute any alcohol or drug abuse patient.[facility] the event this information is protected by the Federal Confidentiality of Alcohol and Drug Abuse Patient Records regulations: The Federal rules restrict any use of the information to criminally investigate or prosecute any alcohol or drug abuse patient.[facility] the event this information is protected by the Federal Confidentiality of Alcohol and Drug Abuse Patient Records regulations: The Federal rules restrict any use of the information to criminally investigate or prosecute any alcohol or drug abuse patient.[facility] the event this information is protected by the Federal Confidentiality of Alcohol and Drug Abuse Patient Records regulations: The Federal rules restrict any use of the information to criminally investigate or prosecute any alcohol or drug abuse patient.[facility] the event this information is protected by the Federal Confidentiality of Alcohol and Drug Abuse Patient Records regulations: The Federal rules restrict any use of the information to criminally investigate or prosecute any alcohol or drug abuse patient.[facility] the event this information is protected by the Federal Confidentiality of Alcohol and Drug Abuse Patient Records regulations: The Federal rules restrict any use of the information to criminally investigate or prosecute any alcohol or drug abuse patient.[facility] the event this information is protected by the Federal Confidentiality of Alcohol and Drug Abuse Patient Records regulations: The Federal rules restrict any use of the information to criminally investigate or prosecute any alcohol or drug abuse patient.[facility] the event this information is protected by the Federal Confidentiality of Alcohol and Drug Abuse Patient Records regulations: The Federal rules restrict any use of the information to criminally investigate or prosecute any alcohol or drug abuse patient.[facility] the event this information is protected by the Federal Confidentiality of Alcohol and Drug Abuse Patient Records regulations: The Federal rules restrict any use of the information to criminally investigate or prosecute any alcohol or drug abuse patient.[facility] the event this information is protected by the Federal Confidentiality of Alcohol and Drug Abuse Patient Records regulations: The Federal rules restrict any use of the information to criminally investigate or prosecute any alcohol or drug abuse patient.[facility] the event this information is protected by the Federal Confidentiality of Alcohol and Drug Abuse Patient Records regulations: The Federal rules restrict any use of the information to criminally investigate or prosecute any alcohol or drug abuse patient.[facility] the event this information is protected by the Federal Confidentiality of Alcohol and Drug Abuse Patient Records regulations: The Federal rules restrict any use of the information to criminally investigate or prosecute any alcohol or drug abuse patient.[facility] the event this information is protected by the Federal Confidentiality of Alcohol and Drug Abuse Patient Records regulations: The Federal rules restrict any use of the information to criminally investigate or prosecute any alcohol or drug abuse patient.[facility] the event this information is protected by the Federal Confidentiality of Alcohol and Drug Abuse Patient Records regulations: The Federal rules restrict any use of the information to criminally investigate or prosecute any alcohol or drug abuse patient.[facility] the event this information is protected by the Federal Confidentiality of Alcohol and Drug Abuse Patient Records regulations: The Federal rules restrict any use of the information to criminally investigate or prosecute any alcohol or drug abuse patient.[facility] the event this information is protected by the Federal Confidentiality of Alcohol and Drug Abuse Patient Records regulations: The Federal rules restrict any use of the information to criminally investigate or prosecute any alcohol or drug abuse patient.[facility] the event this information is protected by the Federal Confidentiality of Alcohol and Drug Abuse Patient Records regulations: The Federal rules restrict any use of the information to criminally investigate or prosecute any alcohol or drug abuse patient.[facility] the event this information is protected by the Federal Confidentiality of Alcohol and Drug Abuse Patient Records regulations: The Federal rules restrict any use of the information to criminally investigate or prosecute any alcohol or drug abuse patient.[facility] Teams (unrecognized sec tion and content) Field Merchandiser Relationship Specialty Start Date End Date Lynette Wu DO [address] [facility] [address] [place] [address] PCP - General 11/05/14 Field Merchandiser Relationship Specialty Start Date End Date Lynette Wu DO [address] [facility] [address] [place] [address] PCP - General 11/05/14 Field Merchandiser Relationship Specialty Start Date End Date FastJenniea Mulugeta DO [address] [facility] [address] [place] [address] PCP - General 11/05/14 Field Merchandiser Relationship Specialty Start Date End Date Lynette Wu DO [address] [facility] [address] [place] [address] PCP - General 11/05/14 Field Merchandiser Relationship Specialty Start Date End Date Lynette Wu DO [address] [facility] [address] [place] [address] PCP - General 11/05/14 Field Merchandiser Relationship Specialty Start Date End Date Lynette Wu DO [address] [facility] [address] [place] [address] PCP - General 11/05/14 Field Merchandiser Relationship Specialty Start Date End Date Lynette Wu DO [address] [facility] [address] [place] [address] PCP - General 11/05/14 Field Merchandiser Relationship Specialty Start Date End Date Lynette Wu DO [address] [facility] [address] [place] [address] PCP - General 11/05/14 Field Merchandiser Relationship Specialty Start Date End Date Jennie Wua Mulugeta DO [address] [facility] [address] [place] [address] PCP - General 11/05/14 Field Merchandiser Relationship Specialty Start Date End Date Fast Lynette A DO [address] [facility] [address] [place] [address] PCP - General 11/05/14 Field Merchandiser Relationship Specialty Start Date End Date FastJenniea A DO [address] [facility] [address] [place] [address] PCP - General 11/05/14 Field Merchandiser Relationship Specialty Start Date End Date FastJenniea A DO [address] [facility] [address] [place] [address] PCP - General 11/05/14 Field Merchandiser Relationship Specialty Start Date End Date Jennie Wua A DO [address] [facility] [address] [place] [address] PCP - General 11/05/14 Field Merchandiser Relationship Specialty Start Date End Date Lynette Wu DO [address] [facility] [address] [place] [address] PCP - General 11/05/14 Field Merchandiser Relationship Specialty Start Date End Date Lynette Wu DO [address] [facility] [address] [place] [address] PCP - General 11/05/14 Field Merchandiser Relationship Specialty Start Date End Date Jennie Wua A DO [address] [facility] [address] [place] [address] PCP - General 11/05/14 Field Merchandiser Relationship Specialty Start Date End Date Jennie Wua A DO [address] [facility] [address] [place] [address] PCP - General 11/05/14 FOR RECORDS PERTAINING TO PATIENTS WHO ARE OR HAVE BEEN ENROLLED IN A CHEMICAL DEPENDENCY/SUBSTANCEABUSE PROGRAM, SOME INFORMATION MAY BE OMITTED. This clinical summary was aggregated from multiple sources. Caution should be exercised in using it in the provision of clinical care. This summary normalizes information from multiple sources, and as a consequence, information in this document may materially change the coding, format and clinical context of patient data. In addition, data may be omitted in some cases. CLINICAL DECISIONS SHOULD BE BASED ON THE PRIMARY CLINICAL RECORDS. [facility]. provides no warranty or guarantee of the accuracy or completeness of information in this document.
[2023-11-15 10:00] LABS: Absolute Lymphocyte Count 3.43 X10^3/uL (0.83-4.51); Absolute Neutrophil Count 5.1 X10^3/uL (2.0-7.7); Basophil# 0.06 X10^3/uL; Basophil% 0.6 % (0-1); Eosinophil# 0.15 X10^3/uL; Eosinophils% 1.6 % (0-5); Hematocrit 44.8 % (37-47); Hemoglobin 14.2 g/dL (12.0-15.0); Lymphocyte # 3.43 X10^3/ul (0.83-4.51); Lymphocyte % 36.5 % (19-41); Mean Corp Hgb Conc 31.7 g/dL (32-36); Mean Corpuscular Hgb 27.9 pg (27.0-32.0); Mean Platelet Vol. 9.6 fl (6.2-12.0); Monocyte# 0.64 X10^3/uL; Monocyte% 6.8 % (0-10); NRBC Flagged by Analyzer 0 % (0-5); Neutrophil # 5.09 X10^3/uL (2.7-7.7); Neutrophil % 54.1 % (47-70); Platelet Count 435 K/mm3 (150-450); RBC Distribution Width CV 13.2 % (11.6-14.6); RBC Distribution Width SD 43.1 fl (35.1-43.9); Red Blood Count 5.09 M/mm3 (4.2-5.4); White Blood Count 9.4 K/mm3 (4.4-11.0)
[2023-11-15 12:59] LABS: ALB/GLOB Ratio 1.2 RATIO (0.9-2.4); AST(SGOT) 27 U/L (15-37); Alanine Aminotransfer ALT/SGPT 45 U/L (13-56); Albumin, Serum 4.1 g/dL (3.2-5.0); Alkaline Phosphatase 57 U/L (45-117); Anion Gap 8 (5-15); BUN 21 mg/dL (7-18); Chloride 106 mmol/L (98-107); Creatinine, Serum 0.75 mg/dL (0.55-1.02); EST Glomerular Filtration Rate 88 mL/min (>60); Est Glom Filt Rate - Afr Amer 106 mL/min (>60); Globulin 3.4 g/dL (2.2-4.2); Glucose 86 mg/dL (74-106); Potassium 3.8 mmol/L (3.5-5.1); Protein, Total 7.5 g/dL (6.4-8.2); Sodium Level 139 mmol/L (136-145)
== END | disposition home or self-care (01) ==
LOC: MTLAB 09:24
PROVIDERS: PCP Family Medicine; Referring Provider Internal Medicine Rheumatology; Visit Provider Internal Medicine Rheumatology
DX: M06.09 Rheumatoid arthritis without rheumatoid factor, multiple sites (principal); M79.7 Fibromyalgia; Z79.899 Other long term (current) drug therapy
CPT/HCPCS: 36415; 80053; 85025

== ENCOUNTER → 2024-05-13 | Outpatient (CLI) | payer OTHER, SELFPAY ==
[2024-05-13 12:24] LABS: Absolute Lymphocyte Count 2.53 X10^3/uL (0.83-4.51); Absolute Neutrophil Count 5.3 X10^3/uL (2.0-7.7); Basophil# 0.04 X10^3/uL; Basophil% 0.5 % (0-1); Eosinophil# 0.21 X10^3/uL; Eosinophils% 2.4 % (0-5); Hematocrit 45.1 % (37-47); Hemoglobin 14.6 g/dL (12.0-15.0); Lymphocyte # 2.53 X10^3/ul (0.83-4.51); Lymphocyte % 29.4 % (19-41); Mean Corp Hgb Conc 32.4 g/dL (32-36); Mean Corpuscular Hgb 28.3 pg (27.0-32.0); Mean Corpuscular Volume 87.4 fL (81-99); Mean Platelet Vol. 10.3 fl (6.2-12.0); Monocyte# 0.52 X10^3/uL; NRBC Flagged by Analyzer 0 % (0-5); Neutrophil # 5.27 X10^3/uL (2.7-7.7); Neutrophil % 61.4 % (47-70); Platelet Count 477 K/mm3 (150-450); RBC Distribution Width CV 13.2 % (11.6-14.6); RBC Distribution Width SD 42.1 fl (35.1-43.9); Red Blood Count 5.16 M/mm3 (4.2-5.4); White Blood Count 8.6 K/mm3 (4.4-11.0)
[2024-05-13 12:26] LABS: ALB/GLOB Ratio 1.1 RATIO (0.9-2.4); AST(SGOT) 30 U/L (15-37); Alanine Aminotransfer ALT/SGPT 46 U/L (13-56); Albumin, Serum 3.9 g/dL (3.2-5.0); Alkaline Phosphatase 62 U/L (45-117); Anion Gap 5 (5-15); BUN 23 mg/dL (7-18); BUN/Creat Ratio 29.9 RATIO (10-20); Calcium,Total 9.7 mg/dL (8.5-10.1); Chloride 109 mmol/L (98-107); Creatinine, Serum 0.77 mg/dL (0.55-1.02); EST Glomerular Filtration Rate 85 mL/min (>60); Est Glom Filt Rate - Afr Amer 103 mL/min (>60); Globulin 3.7 g/dL (2.2-4.2); Glucose 96 mg/dL (74-106); Potassium 3.9 mmol/L (3.5-5.1); Protein, Total 7.6 g/dL (6.4-8.2); Sodium Level 139 mmol/L (136-145)
== END | disposition home or self-care (01) ==
LOC: MTLAB 10:12
PROVIDERS: PCP Family Medicine; Referring Provider Internal Medicine Rheumatology; Visit Provider Internal Medicine Rheumatology
DX: M06.09 Rheumatoid arthritis without rheumatoid factor, multiple sites (principal); Z79.899 Other long term (current) drug therapy; M79.7 Fibromyalgia
CPT/HCPCS: 36415; 80053; 85025

== ENCOUNTER → 2024-10-09 | Outpatient (CLI) | payer BC, SELFPAY ==
--- NOTE | 2024-10-09 10:06 | US_ITS ---
EXAM: US PELVIS TRANSVAGINAL CLINICAL INDICATION: Abdominal tenderness/pain TECHNIQUE: Transvaginal pelvic ultrasound was performed with grayscale and color Doppler imaging. Transvaginal imaging was used for better evaluation of the endometrium and adnexa. COMPARISON: No relevant prior studies available. FINDINGS: UTERUS/CERVIX: Nabothian cysts are present. Minimal fluid within the endocervical canal. Anteverted. There is no uterine mass. The uterus measures 7.7 x 3.9 x 2.9 cm. The endometrial stripe measures 0.2 cm in thickness. RIGHT OVARY: No significant abnormality. Blood flow is present in the right ovary. The right ovary measures 2.6 x 1.5 x 1.7 cm. LEFT OVARY: No significant abnormality. Blood flow is present in the left ovary. The left ovary measures 2.5 x 2.1 x 1.4 cm. FREE FLUID: None. BLADDER: Empty bladder which cannot be evaluated with this probe. US/Transvaginal Non- IMPRESSION: Nonspecific free fluid within the endocervical canal. Otherwise, normal pelvic ultrasound. Electronically Signed: Joss Gama DO at 19:59 EST ,
== END | disposition home or self-care (01) ==
PROVIDERS: PCP Family Medicine; Referring Provider Family Medicine; Visit Provider Family Medicine
DX: R10.819 Abdominal tenderness, unspecified site (principal)
CPT/HCPCS: 76830

== ENCOUNTER → 2024-10-19 | Outpatient (CLI) | payer BC, SELFPAY ==
[2024-10-19 17:43] LABS: Absolute Lymphocyte Count 3.42 X10^3/uL (0.83-4.51); Absolute Neutrophil Count 6.6 X10^3/uL (2.0-7.7); Basophil# 0.05 X10^3/uL; Basophil% 0.4 % (0-1); Eosinophil# 0.23 X10^3/uL; Eosinophils% 2.1 % (0-5); Hematocrit 41.6 % (37-47); Hemoglobin 13.6 g/dL (12.0-15.0); Lymphocyte # 3.42 X10^3/ul (0.83-4.51); Lymphocyte % 30.5 % (19-41); Mean Corp Hgb Conc 32.7 g/dL (32-36); Mean Corpuscular Volume 85.6 fL (81-99); Mean Platelet Vol. 9.9 fl (6.2-12.0); Monocyte# 0.92 X10^3/uL; Monocyte% 8.2 % (0-10); NRBC Flagged by Analyzer 0 % (0-5); Neutrophil # 6.55 X10^3/uL (2.7-7.7); Neutrophil % 58.5 % (47-70); Platelet Count 496 K/mm3 (150-450); RBC Distribution Width CV 13.1 % (11.6-14.6); Red Blood Count 4.86 M/mm3 (4.2-5.4); White Blood Count 11.2 K/mm3 (4.4-11.0)
[2024-10-19 18:40] LABS: ALB/GLOB Ratio 1.3 RATIO (0.9-2.4); AST(SGOT) 21 U/L (15-37); Alanine Aminotransfer ALT/SGPT 44 U/L (13-56); Albumin, Serum 4.1 g/dL (3.2-5.0); Alkaline Phosphatase 60 U/L (45-117); Anion Gap 5 (5-15); BUN 25 mg/dL (7-18); BUN/Creat Ratio 32.6 RATIO (10-20); Chloride 106 mmol/L (98-107); Creatinine, Serum 0.77 mg/dL (0.55-1.02); EST Glomerular Filtration Rate 85 mL/min (>60); Est Glom Filt Rate - Afr Amer 103 mL/min (>60); Globulin 3.2 g/dL (2.2-4.2); Glucose 85 mg/dL (74-106); Potassium 3.5 mmol/L (3.5-5.1); Protein, Total 7.3 g/dL (6.4-8.2); Sodium Level 137 mmol/L (136-145)
== END | disposition home or self-care (01) ==
LOC: MTLAB 15:32
PROVIDERS: PCP Family Medicine; Referring Provider Internal Medicine Rheumatology; Visit Provider Internal Medicine Rheumatology
DX: M06.09 Rheumatoid arthritis without rheumatoid factor, multiple sites (principal); M79.7 Fibromyalgia; Z79.899 Other long term (current) drug therapy
CPT/HCPCS: 36415; 80053; 85025

== ENCOUNTER → 2024-11-09 | Outpatient (CLI) | payer BC, SELFPAY ==
[2024-11-09 15:41] LABS: Hematocrit 44.7 % (37-47); Hemoglobin 14.3 g/dL (12.0-15.0); Mean Corpuscular Hgb 27.9 pg (27.0-32.0); Mean Corpuscular Volume 87.3 fL (81-99); Mean Platelet Vol. 9.8 fl (6.2-12.0); Platelet Count 511 K/mm3 (150-450); RBC Distribution Width CV 13.3 % (11.6-14.6); RBC Distribution Width SD 43.1 fl (35.1-43.9); Red Blood Count 5.12 M/mm3 (4.2-5.4); White Blood Count 9.4 K/mm3 (4.4-11.0)
[2024-11-09 16:20] LABS: AST(SGOT) 31 U/L (15-37); Alanine Aminotransfer ALT/SGPT 52 U/L (13-56); Albumin, Serum 3.8 g/dL (3.2-5.0); Alkaline Phosphatase 67 U/L (45-117); Anion Gap 5 (5-15); BUN 17 mg/dL (7-18); BUN/Creat Ratio 23.6 RATIO (10-20); Calcium,Total 9.9 mg/dL (8.5-10.1); Chloride 106 mmol/L (98-107); Cholesterol 240 mg/dL (200); Creatinine, Serum 0.72 mg/dL (0.55-1.02); EST Glomerular Filtration Rate 91 mL/min (>60); Est Glom Filt Rate - Afr Amer 111 mL/min (>60); Glucose 83 mg/dL (74-106); High Density Lipoprotein 72 mg/dL; Potassium 4.4 mmol/L (3.5-5.1); Protein, Total 7.8 g/dL (6.4-8.2); Sodium Level 137 mmol/L (136-145); Thyroid Stim Hormone (TSH) 0.735 uIU/mL (0.358-3.740); Triglycerides 116 mg/dL; Very Low Density Lipoprotein 23 mg/dL (5-40); Vitamin D,25 Hydroxy 32.3 ng/mL
== END | disposition home or self-care (01) ==
LOC: MFPLAB 11:49
PROVIDERS: PCP Family Medicine; Referring Provider Family Medicine; Visit Provider Family Medicine
DX: E78.5 Hyperlipidemia, unspecified (principal); M06.9 Rheumatoid arthritis, unspecified
CPT/HCPCS: 36415; 80053; 80061; 82306; 84443; 85027

== ENCOUNTER → 2025-01-07 | Outpatient (CLI) | payer BC, SELFPAY ==
--- NOTE | 2025-01-07 07:33 | MRI_ITS ---
PROCEDURE: MRI lumbar spine without IV contrast REASON FOR EXAM: Pain, radiculopathy TECHNIQUE: Multisequence multiplanar MR images of the lumbar spine were obtained without the administration of intravenous contrast. COMPARISON: 12/04/2024 FINDINGS: Vertebral body heights are within normal limits. Negative for fracture or marrow replacement. Small hemangioma in the T12 vertebral body. Straightening of the normal lordosis. No significant scoliosis. Partially visualized hyperintense T2 lesion in the right hepatic lobe measuring 4.5 cm. Conus medullaris is intact and terminates at T12-L1. L1-2: No focal disc abnormality, spinal stenosis or foraminal narrowing. L2-3: No focal disc abnormality, spinal stenosis or foraminal narrowing. L3-4: Minimal posterior disc bulge. Mild bilateral facet arthrosis. No significant spinal stenosis or foraminal narrowing. L4-5: Minimal posterior disc bulge and annular fissure. No significant spinal stenosis or foraminal narrowing. L5-S1: No focal disc abnormality, spinal stenosis or foraminal narrowing. MRI/Spine Lumbar (Routine) IMPRESSION: 1. No significant spinal stenosis or foraminal narrowing. 2. Hyperintense T2 lesion in the right hepatic lobe, statistically a cyst. Rec ommend confirmation with ultrasound. One or more dose reduction techniques were used (e.g., Automated exposure contr ol, adjustment of the mA and/or kV according to patient size, use of iterative reconstruction technique). Reading Location: [facility]
== END | disposition home or self-care (01) ==
PROVIDERS: PCP Family Medicine; Referring Provider Orthopaedic Surgery Orthopaedic Surgery of the Spine; Visit Provider Orthopaedic Surgery Orthopaedic Surgery of the Spine
DX: M54.16 Radiculopathy, lumbar region (principal)
CPT/HCPCS: 72148

== ENCOUNTER → 2025-06-17 | Outpatient (CLI) | payer BC, SELFPAY ==
[2025-06-17 16:13] LABS: Follicle Stimulating Hormone 3.4 mIU/mL
== END | disposition home or self-care (01) ==
LOC: MFPLAB 12:26
PROVIDERS: PCP Family Medicine; Visit Provider Family Medicine
DX: R23.2 Flushing (principal)
CPT/HCPCS: 36415; 83001; 83002

== ENCOUNTER → 2025-07-29 | Outpatient (CLI) | payer BC, SELFPAY ==
[2025-07-29 17:58] LABS: Hematocrit 42.5 % (37-47); Hemoglobin 14.6 g/dL (12.0-15.0); Immature Granulocytes Count 0.020 X10^3/uL (0.0-0.0); Mean Corp Hgb Conc 34.4 g/dL (32-36); Mean Corpuscular Volume 85.3 fL (81-99); Mean Platelet Vol. 10.3 fl (6.2-12.0); NRBC Flagged by Analyzer 0 % (0-5); Platelet Count 555 K/mm3 (150-450); RBC Distribution Width CV 13.1 % (11.6-14.6); RBC Distribution Width SD 40.6 fl (35.1-43.9); Red Blood Count 4.98 M/mm3 (4.2-5.4); White Blood Count 10.7 K/mm3 (4.4-11.0)
[2025-07-29 18:07] LABS: AST(SGOT) 24 U/L (<=31); Alanine Aminotransfer ALT/SGPT 30 U/L (<=34); Albumin, Serum 4.4 g/dL (3.5-5.0); Alkaline Phosphatase 51 U/L (35-104); Anion Gap 11 (5-15); BUN 16 mg/dL (4-19); BUN/Creat Ratio 20.9 RATIO (10-20); Calcium,Total 9.9 mg/dL (7.6-11.0); Carbon Dioxide 21.3 mmol/L (21.0-32.0); Chloride 105 mmol/L (98-108); Globulin 2.4 g/dL (2.2-4.2); Glucose 103 mg/dL (70-99); Potassium 3.9 mmol/L (3.3-5.1)
== END | disposition home or self-care (01) ==
LOC: MTLAB 14:28
PROVIDERS: PCP Family Medicine; Referring Provider Internal Medicine Rheumatology; Visit Provider Internal Medicine Rheumatology
DX: M06.09 Rheumatoid arthritis without rheumatoid factor, multiple sites (principal); M77.11 Lateral epicondylitis, right elbow; M79.7 Fibromyalgia
CPT/HCPCS: 36415; 80053; 85025

== ENCOUNTER → 2025-09-10 | Outpatient (CLI) | payer BC, SELFPAY ==
--- NOTE | 2025-09-10 10:56 | US_ITS ---
PROCEDURE: US/Liver
== END | disposition home or self-care (01) ==
LOC: US 10:53
PROVIDERS: PCP Family Medicine; Referring Provider Chiropractor; Visit Provider Chiropractor
DX: K76.89 Other specified diseases of liver (principal)
CPT/HCPCS: 76705